=== PATIENT | female | born 1960 | race Caucasian/White ===

== ENCOUNTER → 2017-01-10 | Emergency (ER) | payer MEDICARE, OTHER ==
[~2017-01-10] VITALS: Ht 160 cm; Wt 47.2 kg
[~2017-01-10] MED LIST: ACETAMINOPHEN325 M1 PO; ALBUTEROL2.5 MG/3 M INH; AMBIEN5 MG PO; AMITRIPTYLINE H25 MG PO; BENZONATATE100 MG PO; CEPHALEXIN500 MG PO; CIPRO500 MG PO; CIPROFLOXACIN500 MG PO; COUMADIN2.5 MG PO; COUMADIN5 MG PO; DIPHENHYDRAMINE25 M1 PO; DOCUSATE SODIU100 MG PO; DUONEB 0.5 MG-33 ML IH; FLUTICASONE PRO16 GM NAS; FUROSEMIDE20 MG PO; HYDROCODON-ACE1 EA10 PO; IBUPROFEN100 MG PO; IBUPROFEN400 MG PO; IPRAT-ALBUT 0.5-3 ML INH; JANTOVEN2.5 MG PO; JANTOVEN5 MG PO; KEFLEX500 MG PO; KEPPRA1000 MG PO; KEPPRA250 MG PO; LEVAQUIN500 MG PO; LEVAQUIN750 MG PO; LOPERAMIDE2 M1 PO; LOPERAMIDE2 MG PO; MACRODANTIN100 MG PO; MEGACE ES625 MG/5 M PO; METOPROLOL TART25 MG PO; MILK OF MA2400 MG/10 PO; MILK OF MA400 MG/5 M PO; MUCINEX1200 MG PO; MYSOLINE50 MG PO; NICOTINE PATCH1 EAC1 TD; NITROFURANTOIN100 M1 PO; NITROFURANTOIN50 MG PO; OMEPRAZOLE20 MG PO; OXYCODONE HCL5 M1 PO; PHENYTEK200 MG PO; PHENYTOIN SODI100 MG PO; PREDNISONE10 MG PO; PREDNISONE20 MG PO; PYRIDIUM100 MG PO; ROBAXIN500 MG PO; SENEXON-S TABL1 EACH PO; SEROQUEL XR50 MG PO; SEROQUEL200 MG PO; SERTRALINE HCL100 MG PO; SPIRIVA18 MCG INH; SUDOGEST30 MG PO; TRAMADOL HCL50 MG PO; TYLENOL325 MG PO; ULTRAM50 MG PO; VENTOLIN HFA18 GM INH; WARFARIN SODIU2.5 MG PO; WARFARIN SODIUM5 MG PO
== END ==
LOC: ED 16:11
DX: N39.0 Urinary tract infection, site not specified (principal); J44.9 Chronic obstructive pulmonary disease, unspecified; F32.9 Major depressive disorder, single episode, unspecified; Z86.73 Personal history of transient ischemic attack (TIA), and cerebral infarction without residual deficits; I10 Essential (primary) hypertension; I48.91 Unspecified atrial fibrillation; K21.9 Gastro-esophageal reflux disease without esophagitis; F17.200 Nicotine dependence, unspecified, uncomplicated; Z90.49 Acquired absence of other specified parts of digestive tract; Z88.5 Allergy status to narcotic agent; Z79.899 Other long term (current) drug therapy; Z88.8 Allergy status to other drugs, medicaments and biological substances; Z79.01 Long term (current) use of anticoagulants
CPT/HCPCS: 81001; 87077; 87088; 87186; 99283

== ENCOUNTER 2017-02-17 03:10 | Emergency (ER) | payer MEDICARE, OTHER ==
[~2017-02-17] VITALS: Ht 160 cm; Wt 50.4 kg
== END 2017-02-17 04:50 | disposition home or self-care (01) ==
LOC: ED 03:10
PROC: 0T9B70Z Drainage of Bladder with Drainage Device, Via Natural or Artificial Opening (ICD-10-PCS; principal; 2017-02-17)
PROC: 4A0D7LZ Measurement of Urinary Volume, Via Natural or Artificial Opening (ICD-10-PCS; 2017-02-17)
DX: T83.091A Other mechanical complication of indwelling urethral catheter, initial encounter (principal); J44.9 Chronic obstructive pulmonary disease, unspecified; F32.9 Major depressive disorder, single episode, unspecified; I10 Essential (primary) hypertension; I48.91 Unspecified atrial fibrillation; K21.9 Gastro-esophageal reflux disease without esophagitis; F17.200 Nicotine dependence, unspecified, uncomplicated; Z86.73 Personal history of transient ischemic attack (TIA), and cerebral infarction without residual deficits; Z90.49 Acquired absence of other specified parts of digestive tract; Z88.6 Allergy status to analgesic agent; Z88.5 Allergy status to narcotic agent; Z88.8 Allergy status to other drugs, medicaments and biological substances; Z79.899 Other long term (current) drug therapy; Z79.01 Long term (current) use of anticoagulants
CPT/HCPCS: 51702; 51798; 81001; 87077; 87088; 87186; 99284

== ENCOUNTER 2018-04-08 10:21 | Emergency (ER) | payer MEDICARE, OTHER ==
[~2018-04-08] VITALS: Ht 160 cm; Wt 50.4 kg
--- OUTSIDE RECORDS SUMMARY | 2018-04-08 10:26 | XMS ---
PreManage Notification: ROE DURAN Security Senior Sales Operations Manager Events No recent Security Events currently on file CRITERIA MET - Group Notification - [facility] CARE PROVIDERS JO-ANN BALL [facility] Current PHONE: Unknown Armani Malagon Digital Proofing And Platemaker/Program Director/Air Personality 03/19/2014-Current PHONE: [phone] Armani Malagon Primary Care 03/19/2014-Current PHONE: [phone] Jo-Ann Ball DO Treatment Current PHONE: Unknown [facility] Case or Review Manager 01/28/2016-Current HEALTH AND HOSPICE PHONE: [phone] DR JO-ANN BALL Primary Care 02/07/2016-Current PHONE: [phone] Family [facility] Primary Care Current Associates PHONE: [phone] Other Current PHONE: Unknown Guidelines Source: GLORIA [facility] Guidelines Date: 11/15/2017 Care Coordination: PATIENT IS UNDER SERVICES AT [facility] DEPARTMENT.\T\nbsp; IF PATIENT IS SEEN IN THE ED, PLEASE NOTIFY THEM AT [phone].\T\nbsp; IF AFTER HOURS OR ON WEEKENDS PLEASE CALL SWITCHBOARD AT [phone] AND HAVE ON-CALL RN NOTIFIED. ESusi VISIT COUNT (12 MO.) 1 GLORIA Louis TOTAL 1 NOTE: Visits indicate total known visits. ED/UCC VISIT TRACKING (12 MO.) 04/08/2018 10:22 GLORIA [facility] [place] TYPE: Emergency COMPLAINT: - CATHETER PROBLEM INPATIENT VISIT TRACKING (12 MO.) No inpatient visits to display in this time frame [email or web address]
[2018-04-08] MEDS ORDERED: KEFLEX500 MG PO (12:02)
== END 2018-04-08 12:52 | disposition home or self-care (01) ==
LOC: ED 10:21
PROC: 0T9B70Z Drainage of Bladder with Drainage Device, Via Natural or Artificial Opening (ICD-10-PCS; principal; 2018-04-08)
DX: Z46.6 Encounter for fitting and adjustment of urinary device (principal); N39.0 Urinary tract infection, site not specified; J44.9 Chronic obstructive pulmonary disease, unspecified; G40.909 Epilepsy, unspecified, not intractable, without status epilepticus; F32.9 Major depressive disorder, single episode, unspecified; I10 Essential (primary) hypertension; D64.9 Anemia, unspecified; I48.91 Unspecified atrial fibrillation; G35 Multiple sclerosis; F17.210 Nicotine dependence, cigarettes, uncomplicated; K21.9 Gastro-esophageal reflux disease without esophagitis; Z90.49 Acquired absence of other specified parts of digestive tract; Z88.6 Allergy status to analgesic agent; Z88.5 Allergy status to narcotic agent; Z88.8 Allergy status to other drugs, medicaments and biological substances; Z79.899 Other long term (current) drug therapy; Z79.01 Long term (current) use of anticoagulants
CPT/HCPCS: 51702; 81001; 87077; 87088; 87186; 99283-25

== ENCOUNTER 2018-05-14 17:09 | Emergency (ER) | payer MEDICARE, OTHER ==
[~2018-05-14] VITALS: Ht 160 cm; Wt 50.4 kg
--- OUTSIDE RECORDS SUMMARY | 2018-05-14 17:12 | XMS ---
PreManage Notification: ROE DURAN Security Sorter Pricer Events No recent Security Events currently on file CRITERIA MET - Group Notification - [facility] [place] CARE PROVIDERS JO-ANN BALL [facility] Current PHONE: Unknown Armani Malagon Cloud Automation Tester/Capital Project Engineer 03/19/2014-Current PHONE: [phone] Armani Malagon Primary Care 03/19/2014-Current PHONE: [phone] Jo-Ann Ball DO Treatment Current PHONE: Unknown [facility] Case or Geriatric Social Work Professor 01/28/2016-Current HEALTH AND HOSPICE PHONE: [phone] DR BUSCH [facility] Primary Care 02/07/2016-Current PHONE: [phone] [facility] Primary Care Current Associates PHONE: [phone] Other Current PHONE: Unknown Gonzalo has no Care Guidelines for this patient. Care History Medical/Surgical 04/08/2018 [facility] - PATIENT CURRENT UROLOGIST IS DR RUEDA- NEXT APT WITH DR RUEDA IS ON 2018. - PATIENT WAS DISCHARGED FROM HOME HEALTH SERVICES THROUGH [facility]. - PATIENT DID NOT SEE PCP FOR A F2F FORM AND NO SHOWED TO 2 APTS. ESusi VISIT COUNT (12 MO.) 2 GLORIA Louis TOTAL 2 NOTE: Visits indicate total known visits. ED/UCC VISIT TRACKING (12 MO.) 05/14/2018 17:10 [place] [place] TYPE: Emergency COMPLAINT: - CATHETER PROBLEM 04/08/2018 10:[address] [facility] [place] TYPE: Emergency COMPLAINT: - CATHETER PROBLEM DIAGNOSES: - Urinary tract infection, site not specified - Other oysterman (current) drug therapy - Acquired absence of other specified parts of digestive tract - Anemia, unspecified - Allergy status to narcotic agent status - Epilepsy, unspecified, not intractable, without status epilepticus - Gastro-esophageal reflux disease without esophagitis - Allergy status to other drugs, medicaments and biological substances status - Unspecified atrial fibrillation - Nicotine dependence, cigarettes, uncomplicated - Lower abdominal pain, unspecified - Chronic obstructive pulmonary disease, unspecified - Essential (primary) hypertension - Allergy status to analgesic agent status - Major depressive disorder, single episode, unspecified - longterm (current) use of anticoagulants - Encounter for fitting and adjustment of urinary device - Multiple sclerosis INPATIENT VISIT TRACKING (12 MO.) No inpatient visits to display in this time frame [id number]
== END 2018-05-14 18:10 | disposition home or self-care (01) ==
LOC: ED 17:09
DX: Z46.6 Encounter for fitting and adjustment of urinary device (principal); J44.9 Chronic obstructive pulmonary disease, unspecified; Z86.73 Personal history of transient ischemic attack (TIA), and cerebral infarction without residual deficits; F32.9 Major depressive disorder, single episode, unspecified; D64.9 Anemia, unspecified; I48.91 Unspecified atrial fibrillation; K21.9 Gastro-esophageal reflux disease without esophagitis; F17.200 Nicotine dependence, unspecified, uncomplicated; Z88.8 Allergy status to other drugs, medicaments and biological substances; Z88.5 Allergy status to narcotic agent; Z79.899 Other long term (current) drug therapy
CPT/HCPCS: 51702; 99283-25

== ENCOUNTER 2018-05-21 15:25 | Emergency (ER) | payer MEDICARE, OTHER ==
[~2018-05-21] VITALS: Ht 160 cm; Wt 50.4 kg
--- OUTSIDE RECORDS SUMMARY | 2018-05-21 15:28 | XMS ---
PreManage Notification: ROE DURAN Security Preschool Education Director Events No recent Security Events currently on file CRITERIA MET - Group Notification - [facility] - Has Care Guidelines - [facility] - 2 Visits in 30 Days CARE PROVIDERS JO-ANN BALL [facility] Current PHONE: Unknown Armani Malagon Marketing Planning Manager/Manager Case Management 03/19/2014-Current PHONE: [phone] Armani Malagon Primary Care 03/19/2014-Current PHONE: [phone] Jo-Ann Ball DO Treatment Current PHONE: Unknown [facility] Case or Pipe Connector 01/28/2016-Current HEALTH AND HOSPICE PHONE: [phone] DR BUSCH [facility] Care 02/07/2016-Current PHONE: [phone] [facility] Primary Care Current [facility] PHONE: [phone] Other Current PHONE: Unknown Gonzalo has no Care Guidelines for this patient. Care History Medical/Surgical 04/08/2018 [facility] - PATIENT CURRENT UROLOGIST IS DR RUEDA- NEXT APT WITH DR RUEDA IS ON 2018. - PATIENT WAS DISCHARGED FROM HOME HEALTH SERVICES THROUGH [facility]. - PATIENT DID NOT SEE PCP FOR A F2F FORM AND NO SHOWED TO 2 APTS. E.D. VISIT COUNT (12 MO.) 3 GLORIA Louis TOTAL 3 NOTE: Visits indicate total known visits. ED/UCC VISIT TRACKING (12 MO.) 05/21/2018 15:26 [facility] [place] TYPE: Emergency COMPLAINT: - LOW ABD PAIN 05/14/2018 17:10 [facility] [place] TYPE: Emergency COMPLAINT: - CATHETER PROBLEM DIAGNOSES: - Allergy status to narcotic agent status - Unspecified atrial fibrillation - Major depressive disorder, single episode, unspecified - Nicotine dependence, unspecified, uncomplicated - Anemia, unspecified - Gastro-esophageal reflux disease without esophagitis - Allergy status to other drugs, medicaments and biological substances status - Personal history of transient ischemic attack (TIA), and cerebral infarction without residual deficits - Chronic obstructive pulmonary disease, unspecified - Other long-term (current) drug therapy - Encounter for fitting and adjustment of urinary device 04/08/2018 10:22 [facility] [place] TYPE: Emergency COMPLAINT: - CATHETER PROBLEM DIAGNOSES: - Urinary tract infection, site not specified - Other long-term (current) drug therapy - Acquired absence of [...] Major depressive disorder, single episode, unspecified - middle or intermediate school principal (current) use of anticoagulants - Encounter for fitting and adjustment of urinary device - Multiple sclerosis INPATIENT VISIT TRACKING (12 MO.) No inpatient visits to display in this time frame [id number]
[2018-05-21] MEDS ORDERED: KEFLEX500 MG PO (18:43)
== END 2018-05-21 20:03 | disposition home or self-care (01) ==
LOC: ED 15:25
DX: N39.0 Urinary tract infection, site not specified (principal); J44.9 Chronic obstructive pulmonary disease, unspecified; F32.9 Major depressive disorder, single episode, unspecified; I10 Essential (primary) hypertension; D64.9 Anemia, unspecified; I48.91 Unspecified atrial fibrillation; K21.9 Gastro-esophageal reflux disease without esophagitis; F17.200 Nicotine dependence, unspecified, uncomplicated; Z88.5 Allergy status to narcotic agent; Z88.8 Allergy status to other drugs, medicaments and biological substances; Z79.899 Other long term (current) drug therapy; Z79.01 Long term (current) use of anticoagulants
CPT/HCPCS: 51702; 80053; 81001; 83690; 85025; 99284-25; J0696; J7030

== ENCOUNTER 2018-06-18 06:46 | Emergency (ER) | payer MEDICARE, OTHER ==
[~2018-06-18] VITALS: Ht 160 cm; Wt 50.4 kg
--- OUTSIDE RECORDS SUMMARY | 2018-06-18 06:50 | XMS ---
PreManage Notification: ROE DURAN Security Investor Events No recent Security Events currently on file CRITERIA MET - Group Notification - [facility] - Has Care Guidelines - [facility] - 2 Visits in 30 Days CARE PROVIDERS Armani Malagon Account Relationship Manager/Packer Sausage And Wiener 03/19/2014-Current PHONE: [phone] Armani Malagon Account Relationship Manager/Packer Sausage And Wiener 03/19/2014-Current PHONE: [phone] [facility] Current PHONE: Unknown Armani Malagon Primary Care 03/19/2014-Current PHONE: [phone] Jo-Ann Ball Current PHONE: Unknown [facility] Case or Pole Maker 01/28/2016-Current HEALTH AND HOSPICE PHONE: [phone] DR JO-NAN BALL Primary Care 02/07/2016-Current PHONE: [phone] [facility] Primary [facility] Current Associates PHONE: [phone] Other Current PHONE: Unknown Gonzalo has no Care Guidelines for this patient. Care History Medical/Surgical 04/08/2018 [facility] - PATIENT CURRENT UROLOGIST IS DR RUEDA- NEXT APT WITH DR RUEDA IS ON 2018. - PATIENT WAS DISCHARGED FROM HOME HEALTH SERVICES THROUGH [facility]. - PATIENT DID NOT SEE PCP FOR A F2F FORM AND NO SHOWED TO 2 APTS. E.D. VISIT COUNT (12 MO.) 4 [facility]. TOTAL 4 NOTE: Visits indicate total known visits. ED/UCC VISIT TRACKING (12 MO.) 06/18/2018 06:47 [facility] [place] TYPE: Emergency COMPLAINT: - FALL/LEFT HIP PAIN 05/21/2018 15:26 [facility] [place] TYPE: Emergency COMPLAINT: - LOW ABD PAIN DIAGNOSES: - Anemia, unspecified - Unspecified atrial fibrillation - Chronic obstructive pulmonary disease, unspecified - prison (current) use of anticoagulants - Urinary tract infection, site not specified - Other half-way (current) drug therapy - Allergy status to narcotic agent status - Major depressive disorder, single episode, unspecified - Essential (primary) hypertension - Allergy status to other drugs, medicaments and biological substances status - Gastro-esophageal reflux disease without esophagitis - Nicotine dependence, unspecified, uncomplicated 05/14/2018 17:10 [facility] [place] TYPE: Emergency [...] Chronic obstructive pulmonary disease, unspecified - Other rat exterminator (current) drug therapy - Encounter for fitting and adjustment of urinary device 04/08/2018 10:[address] [facility] [place] TYPE: Emergency COMPLAINT: - CATHETER PROBLEM DIAGNOSES: - Urinary tract infection, site not specified - Other half-way (current) drug therapy - Acquired absence of [...] Major depressive disorder, single episode, unspecified - ferry terminal agent (current) use of anticoagulants - Encounter for fitting and adjustment of urinary device - Multiple sclerosis INPATIENT VISIT TRACKING (12 MO.) No inpatient visits to display in this time frame [id number]
== END 2018-06-18 09:08 | disposition home or self-care (01) ==
LOC: ED 06:46
DX: S32.592A Other specified fracture of left pubis, initial encounter for closed fracture (principal); W19.XXXA Unspecified fall, initial encounter; Z86.73 Personal history of transient ischemic attack (TIA), and cerebral infarction without residual deficits; J44.9 Chronic obstructive pulmonary disease, unspecified; F32.9 Major depressive disorder, single episode, unspecified; I10 Essential (primary) hypertension; D64.9 Anemia, unspecified; F17.200 Nicotine dependence, unspecified, uncomplicated; Z88.5 Allergy status to narcotic agent; Z79.899 Other long term (current) drug therapy; Z79.01 Long term (current) use of anticoagulants
CPT/HCPCS: 73502; 73700; 99284-25

== ENCOUNTER 2019-01-25 17:05 | Emergency (ER) | payer MEDICARE, OTHER ==
[~2019-01-25] VITALS: Ht 160 cm; Wt 50.4 kg
[~2019-01-25 17:05] MED LIST changes: +PRIMIDONE50 MG PO; +WARFARIN SODIUM3 MG PO
--- OUTSIDE RECORDS SUMMARY | 2019-01-25 17:08 | XMS ---
PreManage Notification: ROE DURAN Security Ultrasound Tech Events No recent Security Events currently on file CRITERIA MET - Group Notification [place] [facility] [place] Delio Cortés DO Family Medicine Current PHONE: Unknown Armani Malagon Engagement Quality Consultant/Documentation Coordinator 03/19/2014-Current PHONE: [phone] Armani Malagon Primary Care 03/19/2014-Current PHONE: [phone] Delio Cortés DO Treatment Current PHONE: Unknown [facility] Case or Brothel Keeper 01/28/2016-Current HEALTH AND HOSPICE PHONE: [phone] DR BUSCH [facility] Care 02/07/2016-Current PHONE: [phone] [facility] Primary Care Current Associates PHONE: [phone] Other Current PHONE: Unknown Gonzalo has no Care Guidelines for this patient. Care History Medical/Surgical 04/08/2018 [facility] - PATIENT CURRENT UROLOGIST IS DR RUEDA- NEXT APT WITH DR RUEDA IS ON 2018. - PATIENT WAS [facility]CHAR[facility] - PATIENT DID NOT SEE PCP FOR A F2F FORM AND NO SHOWED TO 2 APTS. EAbiolaDAbiola VISIT COUNT (12 MO.) 5 GLORIA Louis TOTAL 5 NOTE: Visits indicate total known visits. ED/UCC VISIT TRACKING (12 MO.) 01/25/2019 17:06 [facility]RI[facility] [place] TYPE: Emergency COMPLAINT: - POSS SEIZURE 06/18/2018 06:47 [facility] [place] TYPE: Emergency COMPLAINT: - FALL/LEFT HIP PAIN DIAGNOSES: - Other correction (current) drug therapy - Nicotine dependence, unspecified, uncomplicated - Unspecified fall, initial encounter - Chronic obstructive pulmonary disease, unspecified - Essential (primary) hypertension - Prsnl hx of TIA (TIA), and cereb infrc w/o resid deficits - jail (current) use of anticoagulants - Oth fracture of left pubis, init encntr for closed fracture - Major depressive disorder, single episode, unspecified - Anemia, unspecified - Left lower quadrant pain - Allergy status to narcotic agent status 05/21/2018 15:26 [facility] [place] TYPE: Emergency COMPLAINT: - LOW ABD PAIN DIAGNOSES: - Anemia, unspecified - Unspecified atrial fibrillation - Chronic obstructive pulmonary disease, unspecified - jail (current) use of anticoagulants - Urinary tract infection, site not specified - Other lobsterman (current) drug therapy - Allergy status to narcotic agent status - Major depressive disorder, single episode, unspecified - Essential (primary) hypertension - Allergy status to oth drug/meds/biol subst status - Gastro-esophageal reflux disease without esophagitis - Nicotine dependence, unspecified, uncomplicated 05/14/2018 17:10 GLORIA [facility] [place] TYPE: Emergency COMPLAINT: - CATHETER PROBLEM DIAGNOSES: - Allergy status to narcotic agent status - Unspecified atrial fibrillation - Major depressive disorder, single episode, unspecified - Nicotine dependence, unspecified, uncomplicated - Anemia, unspecified - Gastro-esophageal reflux disease without esophagitis - Allergy status to oth drug/meds/biol subst status - Prsnl hx of TIA (TIA), and cereb infrc w/o resid deficits - Chronic obstructive pulmonary disease, unspecified - Other lobsterman (current) drug therapy - Encounter for fitting and adjustment of urinary device 04/08/2018 10:[address] [facility] [place] TYPE: Emergency COMPLAINT: - CATHETER PROBLEM DIAGNOSES: - Urinary tract infection, site not specified - Other correction (current) drug therapy - Acquired absence of other specified parts of digestive tract - Anemia, unspecified - Allergy status to narcotic agent status - Epilepsy, unsp, not intractable, without status epilepticus - Gastro-esophageal reflux disease without esophagitis - Allergy status to oth drug/meds/biol subst status - Unspecified atrial fibrillation - Nicotine dependence, cigarettes, uncomplicated - Lower abdominal pain, unspecified - Chronic obstructive pulmonary disease, unspecified - Essential (primary) hypertension - Allergy status to analgesic agent status - Major depressive disorder, single episode, unspecified - exterminator helper (current) use of anticoagulants - Encounter for fitting and adjustment of urinary device - Multiple sclerosis INPATIENT VISIT TRACKING (12 MO.) No inpatient visits to display in this time frame [id number]
== END 2019-01-25 18:51 | disposition home or self-care (01) ==
LOC: ED 17:05
DX: R56.9 Unspecified convulsions (principal); Z86.73 Personal history of transient ischemic attack (TIA), and cerebral infarction without residual deficits; J44.9 Chronic obstructive pulmonary disease, unspecified; I10 Essential (primary) hypertension; I48.91 Unspecified atrial fibrillation; K21.9 Gastro-esophageal reflux disease without esophagitis; F17.200 Nicotine dependence, unspecified, uncomplicated; Z88.5 Allergy status to narcotic agent; Z88.8 Allergy status to other drugs, medicaments and biological substances; Z79.899 Other long term (current) drug therapy; Z79.01 Long term (current) use of anticoagulants
CPT/HCPCS: 70450; 80185; 82542; 85610; 99284-25

== ENCOUNTER 2019-05-13 19:05 | Inpatient (IN) | payer MEDICARE, OTHER ==
[~2019-05-13] VITALS: Ht 160 cm; Wt 43.1 kg
--- OUTSIDE RECORDS SUMMARY | 2019-05-13 19:08 | XMS ---
PreManage Notification: ROE DURAN Security Production Cost Estimator Events No recent Security Events currently on file CRITERIA MET - Group Notification - [facility] [place]ARE PROVIDERS Delio Cortés DO Family Medicine Current PHONE: [phone] Armani Malagon Station Worker/Bag End Sewer 03/19/2014-Current PHONE: [phone] Armani Malagon Primary Care 03/19/2014-Current PHONE: [phone] Delio Cortés DO Treatment Current PHONE: Unknown [facility] Case or Health Promotion Manager 01/28/2016-Current HEALTH AND HOSPICE PHONE: [phone] DR BUSCH [facility] Care 02/07/2016-Current PHONE: [phone] [facility] Primary Care Current Associates PHONE: [phone] Other Current PHONE: Unknown Gonzalo has no Care Guidelines for this patient. Care History Medical/Surgical 04/08/2018 [facility] - PATIENT CURRENT UROLOGIST IS DR RUEDA- NEXT APT WITH DR RUEDA IS ON 2018. - PATIENT WAS DISCHARGED FROM HOME HEALTH SERVICES THROUGH [facility]. - PATIENT DID NOT SEE PCP FOR A F2F FORM AND NO SHOWED TO 2 APTS. E.DbAiola VISIT COUNT (12 MO.) 5 GLORIA Louis TOTAL 5 NOTE: Visits indicate total known visits. ED/UCC VISIT TRACKING (12 MO.) 05/13/2019 19:05 GLORIA [facility] [place] TYPE: Emergency COMPLAINT: - STROKE SYMPTOMS 01/25/2019 17:06 GLORIA [facility] [place] TYPE: Emergency COMPLAINT: - POSS SEIZURE DIAGNOSES: - Unspecified atrial fibrillation - Gastro-esophageal reflux disease without esophagitis - Allergy status to oth drug/meds/biol subst status - Prsnl hx of TIA (TIA), and cereb infrc w/o resid deficits - Allergy status to narcotic agent status - Chronic obstructive pulmonary disease, unspecified - Other exterminator helper termite (current) drug therapy - intermediate (current) use of anticoagulants - Nicotine dependence, unspecified, uncomplicated - Essential (primary) hypertension - Unspecified convulsions 06/18/2018 06:47 GLORIA [facility] [place] TYPE: Emergency COMPLAINT: - FALL/LEFT HIP PAIN DIAGNOSES: - Other mcc (current) drug therapy - Nicotine dependence, unspecified, uncomplicated - Unspecified fall, initial encounter - Chronic obstructive pulmonary disease, unspecified - Essential (primary) hypertension - Prsnl hx of TIA (TIA), and cereb infrc w/o resid deficits - terminal superintendent (current) use of anticoagulants - Oth fracture [...] - Chronic obstructive pulmonary disease, unspecified - terminal superintendent (current) use of anticoagulants - Urinary tract infection, site not specified - Other exterminator helper termite (current) drug therapy - Allergy status to [...] Chronic obstructive pulmonary disease, unspecified - Other exterminator helper termite (current) drug therapy - Encounter for fitting and adjustment of urinary device INPATIENT VISIT TRACKING (12 MO.) No inpatient visits to display in this time frame [id number]
[2019-05-13] MEDS ORDERED: ASCORBIC ACID500 MG PO (21:27)
[2019-05-13] MEDS ORDERED: FERROUS SULFAT325 MG PO (21:30)
[2019-05-13] MEDS ORDERED: VITAMIN D2400 UNIT PO (21:31)
--- NOTE | 2019-05-13 22:45 | NUR ---
BEDSIDE REPORT RECIEVED FROM ED RN. PT TRANSPORTED VIA STETCHER ON OUTBOUND SALES CONSULTANT WITH IV ABX INFUSING BY THIS RN. PT TRANSFERED TO HOSPITAL BED. INITIAL SKIN ASSESSMENT REVEALED BLISTERS AND REDNESS ON COCCYX. PHOTOS IN CHART. PT CONTINUES TO BE HYPOTENSIVE WITH BLOOD PRESSURES SYSTOLICALLY IN THE 80'S. PT ALERT AND ORIENTED. IV FLUIDS INFUSING AND PO MEDICATIONS GIVEN.
--- NOTE | 2019-05-13 23:00 | NUR ---
DRESSING PLACED ON COCCYX. PT FOUND TO HAVE DRIED FECES IN EBONI AREA AND AROUND URINARY CATHETER INSERTION SITE. PT CONTINUES TO BE HYPOTENSIVE. MD NOTIFIED. ORDERS TO CHANGE CATHETER RECIEVED.
--- NOTE | 2019-05-13 23:57 | NUR ---
MANUAL BLOOD PRESSURE OF 76/38. MD NOTIFIED. 500 ML BOLUS ORDERED (SEE EMAR). WILL CONTINUE TO CLOSELY MONITOR.
--- NOTE | 2019-05-14 00:26 | NUR ---
EXISITING RAMON CATHETER DC AND NEW ONE INSTERTED. WELL TOLERATED BY PT. 40 MLS OF URINE IMMEDIATE RETURN. PT HAS IV FLUID BOLUS AND CONTINUOUS IV FLUIDS INFUSING. CALL LIGHT WITHIN REACH. WILL CONTINUE TO CLOSELY MONITOR BLOOD PRESSURES
--- NOTE | 2019-05-14 02:00 | NUR ---
PT RESTING WITH EYES CLOSED. BREATHING EVEN AND UNLABORED. IV FLUIDS INFUSING. CALL LIGHT WITHIN REACH. CLOSELY MONITORING BLOOD PRESSURES AND URINE OUTPUT.
--- NOTE | 2019-05-14 03:45 | NUR ---
IN ROOM FOR ASSESSMENT. PT STATES, "I FEEL MUCH BETTER." URINE OUT OF RAMON IS LIGHT YELLOW, WITH NO SEDIMENT OR ODOR NOTED. MAP HAS CONSISTENTLY BEEN 90-95 OVER THE LAST TWO HOURS. PTS LUNGS SOUND CLEAR. ASSISTED WITH REPOSITIONING IN BED. IV FLUIDS INFUSING. NO STATED OR ASSESSED NEEDS AT THIS TIME.
--- NOTE | 2019-05-14 04:30 | NUR ---
PT AWAKE IN ROOM, WATCHING TELEVISION. CALL LIGHT WITHIN REACH. DENIES ANY NEEDS AT THIS TIME.
--- NOTE | 2019-05-14 05:44 | NUR ---
LAB IN ROOM TO DRAW BLOOD. PT AWAKE WATCHING TELEVISION. DENIES PAIN OR DISCOMFORT. ASSISTED WITH REPOSITIONING. CALL LIGHT WITHIN REACH. NO FURTHER NEEDS AT THIS TIME.
--- NOTE | 2019-05-14 06:56 | NUR ---
LAB CALLED IN CRITICAL VALUE INR OF 9.[address] POWERS CALLED. ORDERS RECIEVED (SEE EMAR).
--- NOTE | 2019-05-14 08:20 | NUR ---
ASSESSMENT COMPLETE. DENIES PAIN. RAMON CATH PATENT WITH YELLOW URINE AND SEDIMENT NOTED. REFUSING BREAKFAST. TALKED WITH PATIENT ABOUT PLAN OF CARE FOR DAY. PATIENT INDICATES UNDERSTANDING. WILL CONTINUE TO MONITOR BP IS HYPOTENSIVE.
--- NOTE | 2019-05-14 09:39 | NUR ---
ROUTINE MEDICATIONS GIVEN. VISITING WITH SISTER. PATIENT DENEIS PROBLEMS.
--- NOTE | 2019-05-14 10:40 | NUR ---
Spoke with Jeni. She is well to this Rn for 10 years. States she had a seizure and still feels out of it. Lives at [facility]. Denies needs to return and has all DME she needs. Dad, Cornell is her Emergency contact. Plans on returning to [facility] on dc.
--- NOTE | 2019-05-14 11:20 | NUR ---
INC OF STOOL. OOB TO COMMODE TO EXPELL MORE STOOL, THEN TRANSFERED TO CHAIR WITH ASSIST. DENIES INCREASED SHORTNESS OF BREATH OR DIZZINESS WITH MOVEMENT. IN GOOD SPIRITS. HAS OCC LOOSE COUGH.
--- NOTE | 2019-05-14 12:30 | NUR ---
ATTEMPTING TO TAKE PEANUT BUTTER SHAKE. PATIENT STATES IT DOES NOT TASTE GOOD. REFUSING FUTHER LUNCH. REMAINS IN CHAIR. IV SITE TO RIGHT INNER WRIST REDRESSED.
--- NOTE | 2019-05-14 14:00 | NUR ---
U.S. OF ABD, DONE AT BEDSIDE.
--- NOTE | 2019-05-14 14:15 | NUR ---
INC OF SMALL AMOUNT OF LOOSE STOOL.
--- NOTE | 2019-05-14 14:20 | NUR ---
PHYS THERAPY HERE TO WORK WITH PATIENT.
--- NOTE | 2019-05-14 14:44 | NUR ---
PT SITTING IN CHAIR, VISITORS IN. PT ALERT, RESPONDED APPROPRIATELY. PT SEEMS TO HAVE GOOD SENSE OF HUMOR, GAVE BLESSING ANE WILL LET PT FINISH VISIT WITH FAMILY. DID NOTE LARGE BRUISE ON PTS' LEFT FOREARM. WILL FOLLOW NEEDED
--- NOTE | 2019-05-14 15:30 | NUR ---
REPORT TO MED-SURG.
--- NOTE | 2019-05-14 15:40 | NUR ---
TO MED-SURG VIA BED.
--- NOTE | 2019-05-14 15:45 | NUR ---
Patient arrives to unit via hospital bed. Vital signs taken, assessment complete. Tele #[address], sinus rhythm. Lung sounds diminished in bases. D5LR running at 50 mls/hr. Patient denies pain. IV site on left wrist cleaned and new window dressing applied. Warm blanket provided. No further needs, call light within reach.
[2019-05-14] MEDS ORDERED: ALBUTEROL2.5 MG/3 M INH (16:57)
[2019-05-14] MEDS ORDERED: SENNA-S TABLET1 EACH PO (16:59)
--- NOTE | 2019-05-14 17:30 | NUR ---
Patient sitting up in bed watching tv. Reports poor appetite, would like bbq chips instead for dinner, which is accommodated. Denies pain. IV site on left wrist with new dressing is C/D/I with scant bleeding. Denies needs, call light within reach.
--- NOTE | 2019-05-14 18:14 | NUR ---
Lab in room for blood draw
--- NOTE | 2019-05-14 19:05 | NUR ---
IN ROOM FOR REPORT, PT IS ON THE PHONE AND DENIES NEEDS AT THIS TIME. CALL LIGHT IS CLOSE.
--- NOTE | 2019-05-14 19:55 | NUR ---
JUNE PROFESSIONAL HEALTHCARE REPRESENTATIVE NOTIFIED THIS RN THAT PT'S IV WAS LEAKING. PT REPORTS SORENESS IN THE AREA. IV SITE WOULD NOT FLUSH OR DRAW BACK. DC'D IV IN PT'S R WRIST, CATH TIP INTACT AND PT TOLERATED WELL. APPLIED PRESSURE WITH GAUZE AND WRAPPED IN COBAN. PT DENIES PAIN AT THIS TIME AND SOB. CALL LIGHT IS CLOSE AND PT DENIES FURTHER NEEDS.
--- NOTE | 2019-05-14 20:52 | NUR ---
IN ROOM TO ADMINISTER MEDICATIONS AND ASSESS PT. SHE DENIES PAIN AND SOB. SEE ASSESSMENT. CALL LIGHT IS CLOSE AND PT DENIES FURTHER NEEDS.
--- NOTE | 2019-05-15 | NUR ---
PT IS RESTING WITH EYES CLOSED, RR IS EVEN AND NONLABORED. IV IS INFUSING FINE. CALL LIGHT IS CLOSE AND BED ALARM IS ON.
--- NOTE | 2019-05-15 00:56 | NUR ---
NEW IV BAG NOW INFUSING. FRESH ICEWATER PROVIDED AND PT DENIES FURTHER NEEDS. CALL LIGHT IS CLOSE.
--- NOTE | 2019-05-15 02:20 | NUR ---
PT REPORTS A HEADACHE 9/10 VS TAKEN AND WNL. PT REPORTS TAKING MOTRIN FOR HEADACHES. TALKED ABOUT HER INR AND BLEEDING POTENTIAL AND HOW NSAIDS SHOULD BE AVOIDED RIGHT NOW. OFFERED COOL WASH CLOTH, CAFFINE, AND TO REMOVE NICOTINE PATCH AND SHE DENIED. ADVISED PT THIS RN WOULD LOOK OVER HER CHART AND SEE WHATOTHER OPTIONS WE COULD COME UP WITH. SHE DENIES FURTHER NEEDS. CALL LIGHT IS CLOSE.
--- NOTE | 2019-05-15 02:40 | NUR ---
PT NOW REPORTS THAT HER HEADACHE IS GONE AND WAS FIXED BY CHANGING THE POSITION OF HER HEAD AND ADJUSTING HER PILLOW. SHE DENIES NEEDS AT THIS TIME. CALL LIGHT IS WITHIN REACH.
--- NOTE | 2019-05-15 04:16 | NUR ---
PT IS AWAKE IN BED, SHE DENIES NEEDS AT THIS TIME. CALL LIGHT IS CLOSE AND IV IS INFUSING FINE.
--- NOTE | 2019-05-15 05:37 | NUR ---
IN ROOM TO TAKE VS AND ENTER I&O'S. FRESH WATER PROVIDED AND PT DENIES FURTHER NEEDS AT THIS TIME. CALL LIGHT IS CLOSE.
--- NOTE | 2019-05-15 07:56 | NUR ---
REPORT RECEIVED FROM LEXI JAY. WHITE BOARD UPDATED. ALL QUESTIONS ANSWERED. NO NEEDS AT THIS TIME. PATIENT AWAKE LYING IN BED. D5LR @50 INFUSING INTO LEFT HAND IV. REPORTS SHE NEVER EATS BREAKFAST SO SHE DENIED WANTING TO ORDER ANYTHING.
--- NOTE | 2019-05-15 09:05 | NUR ---
Spoke with Jeni. She plans on returning to [facility] as soon as she can. Denies needs.
--- NOTE | 2019-05-15 11:34 | NUR ---
CHECKED ON PT-SHE WAS RESTING AND ASKED IT I COULD COME BACK LATER.WILL FOLLOW NEEDED
--- NOTE | 2019-05-15 14:01 | NUR ---
DISCUSSED WITH PT REGARDING HER DX. WE TALKED ABOUT SEPSIS AND ALL. PT STATED UNDERSTANDING. WE ALSO DISCUSSED RAMON CATH CARE PT HAS FREQUENT UTI WHICH CAN LEAD TO SEPSIS. SHE EXPLAINED TO ME THAT SHE CLEANS HER CATH EVERY TIME SHE EMPTIES HER LEG BAG(STATES SHE NEVER WEARS THE BIG BAG) SHE EMPTIES THE LEG BAG SEVERAL TIMES A DAY. SHE WAS ABLE TO REPEAT BACK TO ME WHAT SHE DID TO CLEAN AND MAINTAIN HER CATH. SHE STATES THAT HER CATH IS CHANGED EVERY [address]. DENIES OTHER QUESTIONS, CONCERNS, OR ISSUES AT THIS TIME.
--- NOTE | 2019-05-15 14:06 | NUR ---
ambulating in hallway with physical therapy now. tolerating well. using gait belt and fww with wheelchair follow.
--- NOTE | 2019-05-15 17:09 | NUR ---
1630: 2 failed attempts of IV peripheral lines by student nurse/instructor in the right arm and right wrist.
--- NOTE | 2019-05-15 18:33 | NUR ---
WAS CALLED TO MED SURG TO ATTEMPT IV ACCESS. IV ACCESS HAS BEEN ATTEMPTED MULTIPLE TIMES BY MULTIPLE STAFF MEMBERS WITHOUT SUCCESS. ATTEMPTED 4 TIMES, TWICE WITH ULTRASOUND. THE IV'S RETURNED BLOOD BUT WOULD NOT THREAD INTO THE VEIN. PRESSURE WAS APPLIED TO PT'S PUNCTURE SITES. PT TOLERATED WELL. NOTIFIED. DR. POWERS SAID OKAY TO LEAVE IV OUT FOR NOW. PT'S PRIMARY RN, USAMA NOTIFIED.
--- NOTE | 2019-05-15 18:50 | NUR ---
UNABLE TO OBTAIN IV. MD SAID OK TO LEAVE OUT. BP ON RIGHT ARM FINALLY 90SBP. MD MADE AWARE. NO NEW ORDERS. MILKSHAKE ORDERED FOR DINNER.
--- NOTE | 2019-05-15 19:17 | NUR ---
RECEIVED REPORT FROM MISTY FORRESTER. pt RESTING IN BED. NO REQUESTS AT THIS TIME. CALL LIGHT WITHIN REACH. WHITEBOARD UPDATED.
--- NOTE | 2019-05-15 19:21 | NUR ---
Student RN, recieved report from RN at change of shift. Patient has decreased appetite, and refuses meals. Encouraged her to try an Ensure/Shakes. Patient requested a Peanut Butter Milkshake. She liked it and has had a Peanut Butter Shake for breakfast, lunch, and dinner. Patient has been tired, states she did not sleep well last night. Physical Therapy came and took her for a walk. Tollerated well with walker. She got a shower and a bed change in the afternoon and tollerated the activity well. During an assessment, patient complained of her IV being painful, DC'd IV due to infiltration. Several attempts by RN's to insert an IV, and all were failed attempts including use of an ultrasound machine. is aware that she has no IV access. Patient has a good mood and affect and is cooperative for all interventions.
--- NOTE | 2019-05-15 20:30 | NUR ---
ASSESSMENT DONE. VITALS AND I&O RECORDED. pt HAD LOW BP, VERIFIED MANUALLY, DENIED S/S OF HYPOTENSION. WILL RECHECK WITH NEXT COMB SETTER.
--- NOTE | 2019-05-15 23:12 | NUR ---
MEDICATION DUE. GIVEN (SEE MAR). MANUALLY RECHECKED BP, IMPROVED. PROVIDED ICE WATER. NO FURTHER REQUESTS AT THIS TIME. CALL LIGHT WITHIN REACH.
--- NOTE | 2019-05-16 02:33 | NUR ---
pt SLEEPING, WOKE TO VOICE. ASSESSMENT DONE. MEDICATION GIVEN (SEE MAR). WATER PROVIDED. NO FURTHER REQUESTS AT THIS TIME. CALL LIGHT WITHIN REACH.
--- NOTE | 2019-05-16 06:30 | NUR ---
pt REPORTED A HEADACHE, IN TO DO VITALS AND RECORD I&O. pt REPORTED THAT HEADACHE HAD IMPROVED NO MEDS GIVEN AT THIS TIME. NO REQUESTS. CALL LIGHT WITHIN REACH.
--- NOTE | 2019-05-16 07:36 | NUR ---
PT SLEEPING AT THIS TIME, EYES CLOSED, RESP EVEN AND NON LABORED. PERSONAL SUPPLIES AND CALL LIGHT WITHIN REACH. NO NEEDS AT THIS TIME.
--- NOTE | 2019-05-16 09:45 | NUR ---
Spoke with Jeni. She is wanting to go home today. Sister, Kristine is in the room and states she will drive her home when she gets off work at 1430. Called [facility] and notified pt will return today.
[2019-05-16] MEDS ORDERED: NICOTINE PATCH1 EAC1 TD (10:08)
[2019-05-16] MEDS ORDERED: CIPROFLOXACIN500 MG PO (10:08)
--- NOTE | 2019-05-16 10:19 | NUR ---
IBUPROFEN 400MG PO ADMIN FOR REPORTS OF HEADACHE.
--- NOTE | 2019-05-16 11:53 | NUR ---
PT RESTING IN BED, COVERS PULLED UP TO HER EYES. PT STATED THAT SHE HAD A HEADACHE AND WAS HOPING TO BE DC'D TODAY AND AT HOME SHE WOULD FEEL BETTER. GAVE BLESSING, WILL FOLLOW NEEDED
--- NOTE | 2019-05-16 12:42 | NUR ---
[facility] Student Nurse, recieved report from RN at change of shift. Patient has been sleeping most of the day, she states that she is very tired. Showering/ADL's were offered, but patient refused because she is getting discharged today. During assessment, patient complained of a headache and stated she takes ibuprophen at home, so approved this request. Patient states the ibuprohen was effective. She continues to have a poor appetite, she will only drink a peanut butter milkshake. Patient is eager to be discharged later this afternoon
--- NOTE | 2019-05-16 12:49 | NUR ---
1245: Student nurse checked on patient. She is sleeping in her room. Bed is lowered, rails are up, and call light is within reach. She was given fresh ice water and warm blankets.
== END 2019-05-16 14:40 | disposition home or self-care (01) | DRG 698 ==
LOC: ED 19:05 → CCU 22:19 → MS 05-14 16:11
PROVIDERS: ADMIT Internal Medicine
DX: T83.511A Infection and inflammatory reaction due to indwelling urethral catheter, initial encounter (principal); A41.51 Sepsis due to Escherichia coli [E. coli]; N30.00 Acute cystitis without hematuria; Z16.12 Extended spectrum beta lactamase (ESBL) resistance; G40.909 Epilepsy, unspecified, not intractable, without status epilepticus; J44.9 Chronic obstructive pulmonary disease, unspecified; N31.9 Neuromuscular dysfunction of bladder, unspecified; E87.6 Hypokalemia; E83.42 Hypomagnesemia; I48.0 Paroxysmal atrial fibrillation; F32.9 Major depressive disorder, single episode, unspecified; R29.90 Unspecified symptoms and signs involving the nervous system; Z86.73 Personal history of transient ischemic attack (TIA), and cerebral infarction without residual deficits; Z79.899 Other long term (current) drug therapy; Z79.01 Long term (current) use of anticoagulants; Z88.6 Allergy status to analgesic agent; Z88.5 Allergy status to narcotic agent; Z88.8 Allergy status to other drugs, medicaments and biological substances
CPT/HCPCS: 36415; 70450; 71045; 80048; 80053; 80185; 81001; 82542; 83605; 83735; 84132; 85025; 85610; 85651; 87040; 87077; 87088; 87186; 94640; 94760; 96361; 96374; 97116; 97162; 97166; 97530; 97535; 99285-25; 99406; J0696; J3475; J3480; J7030; J7040; J7060; J7120; J7121

== ENCOUNTER 2019-08-26 04:25 | Emergency (ER) | payer MEDICARE, OTHER ==
[~2019-08-26] VITALS: Ht 160 cm; Wt 43.1 kg
[~2019-08-26 04:25] MED LIST changes: +ASCORBIC ACID500 MG PO; +FERROUS SULFAT325 MG PO; +SENNA-S TABLET1 EACH PO; +VITAMIN D2400 UNIT PO
--- OUTSIDE RECORDS SUMMARY | 2019-08-26 04:28 | XMS ---
PreManage Notification: ROE DURAN Security Service Liaison Representative Events No recent Security Events currently on file CRITERIA MET - Group Notification - [facility] - Has Care Guidelines - History of Sepsis Dx CARE PROVIDERS Delio Cortés DO [facility] Current PHONE: [phone] YANELI COFFEY Nurse Practitioner: Family 05/14/2019-Current PHONE: [phone] Armani Malagon Conveyor Technician/Head Of Marketing [employer] 05/18/2019-Current PHONE: [phone] Gonzalo has no Care Guidelines for this patient. Care History Medical/Surgical 05/14/2019 [facility] - Patient is currently established with [facility]. If patient is seen in the ED during business hours. Please contact CHWs at [facility]. - Care Recommendation: If this patient has had 5 or more Emergency Department visits in the last 12 months.\T\nbsp; Patient will require education on the scope and purpose of the ED as an acute care provider not a Primary Care Provider and should not be utilized for chronic conditions.\T\nbsp; These are guidelines and the provider should exercise clinical judgment when providing care. 04/08/2018 [facility] - PATIENT CURRENT UROLOGIST IS DR RUEDA- NEXT APT WITH DR RUEDA IS ON 2018. - PATIENT WAS DISCHARGED FROM HOME HEALTH SERVICES THROUGH [facility]. - PATIENT DID NOT SEE PCP FOR A F2F FORM AND NO SHOWED TO 2 APTS. E.D. VISIT COUNT (12 MO.) 3 [facility] TOTAL 3 NOTE: Visits indicate total known visits. ED/UCC VISIT TRACKING (12 MO.) 08/26/2019 04:26 [facility] TYPE: Emergency COMPLAINT: - POSS RECTAL PROLAPSE 05/13/2019 19:05 [facility] TYPE: Emergency COMPLAINT: - STROKE SYMPTOMS 01/25/2019 17:06 [facility] TYPE: Emergency COMPLAINT: - POSS SEIZURE DIAGNOSES: - Unspecified atrial fibrillation - Gastro-esophageal reflux disease without esophagitis - Allergy status to other drugs, medicaments and biological sub - Personal history of transient ischemic attack (TIA), and cere - Allergy status to narcotic agent status - Chronic obstructive pulmonary disease, unspecified - Other chcf (current) drug therapy - group home (current) use of anticoagulants - Nicotine dependence, unspecified, uncomplicated - Essential (primary) hypertension - Unspecified convulsions INPATIENT VISIT TRACKING (12 MO.) 05/13/2019 22:[address] [facility] TYPE: Medical Surgical COMPLAINT: - SEPSIS DIAGNOSES: - Major depressive disorder, single episode, unspecified - Hypokalemia - Hypomagnesemia - Extended spectrum beta lactamase (ESBL) resistance - Allergy status to analgesic agent status - Neuromuscular dysfunction of bladder, unspecified - group home (current) use of anticoagulants - Allergy status to narcotic agent status - Chronic obstructive pulmonary disease, unspecified - Paroxysmal atrial fibrillation - Epilepsy, unspecified, not intractable, without status epilep - Acute cystitis without hematuria - Allergy status to other drugs, medicaments and biological sub - Sepsis due to Escherichia coli [E. coli] - Personal history of transient ischemic attack (TIA), and cere - Unspecified symptoms and signs involving the nervous system - Infection and inflammatory reaction due to indwelling urethra - Unspecified convulsions - Other chcf (current) drug therapy [email or web address]
== END 2019-08-26 05:06 | disposition home or self-care (01) ==
LOC: ED 04:25
DX: R10.9 Unspecified abdominal pain (principal); J44.9 Chronic obstructive pulmonary disease, unspecified; I10 Essential (primary) hypertension; D64.9 Anemia, unspecified; F32.9 Major depressive disorder, single episode, unspecified; K21.9 Gastro-esophageal reflux disease without esophagitis; F17.200 Nicotine dependence, unspecified, uncomplicated; Z79.899 Other long term (current) drug therapy
CPT/HCPCS: 99283

== ENCOUNTER 2021-03-18 02:58 | Inpatient (IN) | payer MEDICARE, OTHER ==
[~2021-03-18] VITALS: Ht 160 cm; Wt 48.0 kg
[~2021-03-18 02:58] MED LIST changes: +VITAMIN D210 MCG PO; -VITAMIN D2400 UNIT PO
--- OUTSIDE RECORDS SUMMARY | 2021-03-18 03:02 | XMS ---
PreManage Notification: ROE DURAN Security Supervisor Case Loading Events No recent Security Events currently on file CRITERIA MET - Group Notification CARE PROVIDERS Delio Cortés DO [facility] Current PHONE: Unknown YANELI COFFEY Nurse Practitioner: Family 05/14/2019-Current PHONE: Unknown Daniel Barrientos Lead Rider/Janitor Supervisor 02/16/2021-Current PHONE: [phone] Gonzalo has no Care Guidelines for this patient. Care History Medical/Surgical 08/26/2019 [facility] Patient has follow up appointment with Dr. Rueda on 09/02/2019. 05/14/2019 [facility] - Patient is currently established with [facility]. If patient is seen in the ED during business hours. Please contact CHWs at [facility]. - Care Recommendation: If this patient has had 5 or more Emergency Department visits in the last 12 months.\T\nbsp; Patient will require education on the scope and purpose of the ED as an acute care provider not a Primary Care Provider and should not be utilized for chronic conditions.\T\nbsp; These are guidelines and the provider should exercise clinical judgment when providing care. 04/08/2018 [facility] - PATIENT CURRENT UROLOGIST IS DR RUEDA- NEXT APT WITH DR RUEDA IS ON 2018. - PATIENT WAS DISCHARGED FROM HOME HEALTH SERVICES THROUGH [facility]. - PATIENT DID NOT SEE PCP FOR A F2F FORM AND NO SHOWED TO 2 APTS. E.D. VISIT COUNT (12 MO.) 1 [facility]. TOTAL 1 NOTE: Visits indicate total known visits. ED/UCC VISIT TRACKING (12 MO.) 03/18/2021 02:59 [facility] TYPE: Emergency COMPLAINT: - SKIN PROBLEM INPATIENT VISIT TRACKING (12 MO.) No inpatient visits to display in this time frame [email or web address]
[2021-03-18] MEDS ORDERED: ELIQUIS5 MG PO (03:29)
[2021-03-18] MEDS ORDERED: LEVETIRACETAM1000 MG PO (03:30)
--- NOTE | 2021-03-18 07:55 | NUR ---
PT ARRIVES FROM ED, ADMITTED TO CCU ROOM 130 FOR RSV, HYPOXIA. PT IS ALERT AND AWAKE, ON 2L/O2. TRANSFERRED TO BED WITH DRAW SHEET. PT HAS DRESSING ON SACRAL AREA, ALLEVYN, CLEAN DRY AND INTACT. ASSESSMENT DONE, LUNGS HAVE SOME COARSE SOUNDS THROUGHOUT, RESP EVEN AND UNLABORED. CALL LIGHT IN HAND.
--- NOTE | 2021-03-18 09:00 | NUR ---
CALL RECVD FROM MARYBETH AT [facility]. PATIENT UPDATE GIVEN. COPY OF PATIENT H&p, ER NOTES, LABS AND IMAGING SENT TO RN AT [facility].
--- NOTE | 2021-03-18 09:38 | NUR ---
IN TO GIVE AM MEDS AND MILKSHAKE
--- NOTE | 2021-03-18 10:15 | NUR ---
PT REPOSITIONED ONTO RIGHT SIDE, PAINFUL WITH MOVEMENT, WILL DISCUSS PAIN MEDICINE WITH DR COLINDRES.
--- NOTE | 2021-03-18 11:26 | NUR ---
GAVE PT ULTRAM 50 MG. ALSO ENCOURAGED HER TO DRINK ENSURE OR ORDER SOMETHING FOR LUNCH BUT SHE CONTINUES TO REFUSE, EDUCATION DONE REGARDING IMPORTANCE OF NUTRITION FOR WOUND HEALING. SHE STATES, "NO, IT WILL ALL JUST COME BACK UP". DRINKING WATER WELL.
--- NOTE | 2021-03-18 12:42 | NUR ---
PT REPORTS PAIN DOWN TO 7/10 AFTER ULTRAM, IS SITTING UP IN BED WATCHING TV AND DOES LOOK MORE COMFORTABLE AND ENGAGING AND AWAKE. ENCOURAGED HER AGAIN TO TRY TO EAT SOMETHING FOR LUNCH, STATES "I ONLY EAT DINNER, AROUND EIGHT O CLOCK, JUST A PEANUT BUTTER MILK SHAKE AND THATS ALL I WANT". HAD HER TAKE SOME SIPS OF ENSURE JUICE AND SHE LOOKED DISGUSTED, STATED "THAT TASTES LIKE PUKE" AND REFUSED TO DRINK MORE. PLAN TO TRY TO DRINK ENTIRE CUP IN THE NEXT FEW HOURS DISCUSSED WITH HER, SHE IS AGREEABLE ALTHOUGH DOES NOT SEEM HAPPY ABOUT IT. INCENTIVE SPIROMETRY ALSO GIVEN TO PT WITH EDUCATION AND SHE IS WILLING AND MORE POSITIVE ABOUT DOING THIS. PLAN TO COME BACK IN AN HOUR FOR MORE SIPS OF ENSURE AND REPOSITIONING DISCUSSED WITH PT, SHE IS SITTING UP WATCHING TV FOR NOW, ASSESSMENT UNCHANGED FROM PREVIOUS.
--- NOTE | 2021-03-18 12:56 | NUR ---
MED REC COMPLETED BY PHARMACY
--- NOTE | 2021-03-18 14:31 | NUR ---
TOOK REPORT FROM JESSICA JAY. PT IN ROOM WATCHING TV. DENIES NEEDS AT THIS TIME.
--- NOTE | 2021-03-18 14:51 | NUR ---
PT RN CHARTED PT HAND-OFF UNDER JESSICA RN IN ERROR. THIS RN TOOK OVER CARE AT 1430.
--- NOTE | 2021-03-18 15:20 | NUR ---
PT ENCOURAGED TO CONTINUE TO DRINK FLUIDS AND IS REFUSING MEALS AT THIS TIME. PROTEIN SHAKE ORDERED.
--- NOTE | 2021-03-18 15:41 | NUR ---
PT ATTEMPTING TO AMBULATE AND IS UNSTEADY ON FEET. PT BED ALARM ACTIVATED.
--- NOTE | 2021-03-18 20:00 | NUR ---
SHIFT REPORT RECEIVED FROM MISTY QUEZADA. ASSESSMENT COMPLETED. PT IS ALERT, ANSWERS ORIENTATION QUESTIONS APPROPRIATELY BUT IS FORGETFUL OF SITUATION & SURROUNDINGS, CONTINUES TO ASK TO GO BACK TO HER ROOM OR GO OUT FOR A CIGARETTE. RE-ORIENTATION PROVIDED. REPORTS 10/ PAIN TO COCCYX-PT HAS WOUND CURRENTLY COVERED IN ALLEVYN THAT IS C/D/I. PRN ULTRAM GIVEN AND PT ASSISTED TO REPOSITION TO RIGHT SIDE. LUNGS COARSE AND DIM, OXYGEN TITRATED TO 4L AND HUMIDIFICATION ADDED. HR REGULAR. BOWEL TONES ACTIVE, DENIES NAUSEA. NO EDEMA NOTED. IV INTACT AND PATENT, FLUIDS INFUSING WNL. RAMON PATENT, CATH CARE PROVIDED. BED ALARM ON FOR SAFETY. PT ABLE TO TAKE EVENING MEDICATIONS WITHOUT ISSUE. CALL LIGHT WITHIN REACH.
--- NOTE | 2021-03-18 22:00 | NUR ---
OFFERED TO ASSIST PT TO REPOSITION, PT STATES SHE WAS ABLE TO REPOSITION HERSELF AND FEELS COMFORTABLE AT THIS TIME. DR. COLINDRES IN UNIT TO CHECK IN, AWARE OF SOFT BP'S.
--- NOTE | 2021-03-19 00:51 | NUR ---
ASSESSMENT COMPLETED. PT SLEEPING, BUT WOKE EASILY TO TOUCH. ORAL TEMP 100.6, DR. COLINDRES NOTIFIED, ORDER RECEIVED FOR PRN TORADOL-GIVEN. OXYGEN TITRATED TO 2L NC, LUNGS REMAIN SOMEWHAT COARSE AND DIM. NO OTHER CHANGES FROM PREVIOUS ASSESSMENT, PT ASSISTED TO REPOSITION FROM SUPINE ONTO RIGHT SIDE. BED ALARM REMAINS ON FOR SAFETY.
--- NOTE | 2021-03-19 02:35 | NUR ---
DR. COLINDRES NOTIFIED OF PT'S BP: 67/46(53), URINE OUTPUT ~0.5ML/KG/HR. ORDER RECEIVED FOR 500ML NS BOLUS. WHILE IN ROOM TO START BOLUS, PT REPORTS 10/10 COCCYX PAIN, PRN ULTRAM GIVEN. PT HAD REPOSITIONED HERSELF TO SUPINE, OFFERED TO REPOSITION PT TO LEFT SIDE, BUT PT AGAIN WANTS TO BE ON RIGHT. PILLOW SUPPORT PROVIDED. PT DENIES FURTHER NEEDS AT THIS TIME. CALL LIGHT WITHIN REACH AND BED ALARM ON.
--- NOTE | 2021-03-19 04:11 | NUR ---
PT SLEEPING SOUNDLY, NO APPARENT DISTRESS. BP IMPROVING SLIGHTLY SINCE BOLUS COMPLETED. 2L O2 REMAINS IN PLACE, LUNGS CONTINUE TO SOUND SLIGHTLY COARSE. RAMON REMAINS PATENT. IVF INFUSING WNL. BED ALARM ON. WILL ALLOW FOR REST AND CONTINUE TO MONITOR.
--- NOTE | 2021-03-19 06:25 | NUR ---
PT CONTINUES TO SLEEP SOUNDLY, NO APPARENT DISTRESS. RESPIRATIONS EVEN AND UNLABORED, 2L O2 IN PLACE. BED ALARM ON.
--- NOTE | 2021-03-19 07:45 | NUR ---
PT IN BED WITH EYES CLOSED, RR 24, SPO2 94%, HR 60'S. REPORT RECEIVED FROM DALIA JAY.
--- NOTE | 2021-03-19 08:19 | NUR ---
RT IN TO WORK WITH PT.
--- NOTE | 2021-03-19 10:52 | NUR ---
500ML BOLUS COMPLETED. BP RECHECKED IS 70/50 MAO 57, HR 70 AND RR 24.
--- NOTE | 2021-03-19 11:10 | NUR ---
CALL TO DR COLINDRES TO UPDATE ON RECENT BP 66/50, PLAN TO CONT TO MONITOR FOR NOW, CONTINUE IVF AND MONITOR URINE OUTPUT.
--- NOTE | 2021-03-19 12:39 | NUR ---
ENSURE AND PEANUT BUTTER MILKSHAKE ORDERED FOR PT, ALTHOUGH SHE DENIED WANTING ANYTHING. PO INTAKE ENCOURAGED, PT WAS WILLING TO DRINK SOME OF THE APPLE JUICE ENSURE.
--- NOTE | 2021-03-19 14:11 | NUR ---
IN TO CHECK ON PT, PT WATCHING TV IN BED, REQUESTS PAIN MEDICATION FOR SACRAL ULCER. WILL GIVEN IV TORADOL.
--- NOTE | 2021-03-19 14:40 | NUR ---
IN TO GIVE PAIN MEDS, REPOSITION PT AND GIVE SIPS OF ENSURE. 15MG IV TORADOL GIVEN FOR 10/10 PAIN.
--- NOTE | 2021-03-19 16:07 | NUR ---
PT REPORTS NOT FEELING LESS PAINFUL SINCE PAIN MEDICATION GIVEN ALTHOUGH SHE IS MOVING AROUND IN BED BETTER AND FACE APPEARS MORE RELAXED AND LESS PAINFUL. WILL GIVE PRN ULTRAM NOW IT IS TIME. BED BATH GIVEN. COPIOUS AMOUNTS OF LOTION APPLIED TO LOWER EXTREMITIES. URINE OUTPUT HAS PICKED UP NOW, LAST FEW HOURS HAVE BEEN 70, 140, AND 90ML PER HOUR. PT SEEMS SATISFIED WITH BED BATH, WANTS TO BRUSH HER OWN HAIR, BRUSH GIVEN. PT NOW SITTING UP IN BED WITH BRUSH WATCHING TV. BPS REMAIN MOSTLY 70'S OVER 50'S WITH MAP AROUND 60. PT CONT TO BE ORIENTED, ANSWERING QUESTIONS APPROPRIATLEY. HAS NOT TRIED TO GET OUT OF BED OR ASK TO GO OUT TO SMOKE OR FIDGET WITH IV AT ALL SO FAR THIS SHIFT. SOME SHADING NOTED ON COCCYX ALLEVYN- OLD DRESSING REMOVED TO EXAMINE IT, IT APPEARS TO BE A SMALL AMOUNT OF DRIED BLOOD ABOUT 3CM AWAY FROM ULCER. WOUND AREA CLEANED WITH SALINE AND WOUND CLEANSER AND ALLOWED TO DRY. ULCER BED NOW IS WHITE WITH FEW SPOTS OF YELLOW IN IT. ALSO THERE IS AN OPEN AREA BELOW THE ULCER APPROX 4CM AND SLIGHTLY LEFT. THIS AREA WAS PREVIOUSLY NOT UNDER THE FOAM PART OF THE ALLEVYN ONLY THE PLASTIC PART, NEW ALLEVYN APPLIED WHICH COVERS BOTH SITES. THERE IS ALSO A BRUISE NOTED RIGHT ABOVE THE SACRAL AREA, THIS WAS ALSO COVERED WITH A SMALL ALLEVYN. PT C/O PAIN IN THIS ENTIRE AREA, POSITIONED ONTO LEFT SIDE. CALL LIGHT IN REACH.
--- NOTE | 2021-03-19 17:20 | NUR ---
50MG ULTRAM GIVEN FOR 8/10 COCCYX PAIN.
--- NOTE | 2021-03-19 17:27 | NUR ---
DR COLINDRES UPDATED ON PTS RECENT BP'S AND OTHER VS WELL URINE OUTPUT.
--- NOTE | 2021-03-19 18:56 | NUR ---
PT REPOSITIONED, FLOATED ONTO PILLOWS, HAD GOTTEN SELF ONTO BACK FOR A WHILE AND DID NOT WANT TO MOVE BUT REMINDED OF IMPORTANCE OF KEEPING OFF OF ULCER. PT REQUESTS MILKSHAKE, MILKSHAKE GIVEN WITH ADDED PROTEIN POWDER.
--- NOTE | 2021-03-19 19:10 | NUR ---
REPORT RECEIVED FROM DAY SHIFT NURSE JESSICA, ASSUMED CARE OF PATIENT AT THIS TIME.
--- NOTE | 2021-03-19 20:40 | NUR ---
PT ASSESSMENT IS COMPLETE. PT'S BP CONTINUES TO REMAIN IN 70'S-80'S SYSTOLIC, HELD HER 2100 METOPROLOL DOSE. HR IN 70'S. PT DOESN'T WANT TO CHANGE HER POSITION AT THIS TIME. PT STATES "I'M COMFORTABLE LIKE THIS" EMPTIED RAMON HAD 350 DRIANED. PT DRINKING MILKSKAE DOESNT WANT WATER, ENCOURAGED PT TO DRINK WATER AND EAT SOME FOOD. CALL LIGHT IN REACH RAILS UP FOR SAFTEY.
--- NOTE | 2021-03-19 22:00 | NUR ---
PT RESTING IN BED HOB ELEVATED 45 DEGREES, REMAINS N O2 NC 2L. TV ON, CALL LIGHT IN REACH, STILL AWAKE, DENIES NEEDS AT THIS TIME, DECLJINES OFFER FOR MELATONIN.
--- NOTE | 2021-03-19 23:17 | NUR ---
PT ASLEEP REMAINS ON O2 VIA NC 2 L. SATS 95% CURRENR BP 80/59, MAP 67. CALL LIGHT IN REACH. RAMON DRAINIING. MAINTENACNE FLUIDS CONTINUE.
--- NOTE | 2021-03-20 00:25 | NUR ---
PT POSITIONED TO HER RIGHT SIDE, REMAINS ON NASAL CANNULA AT 2 LITERS, PT SLEEPING, WILL BE IN TO DO HER ASSESSMENT SOON, CALL LIGHT IN REACH.
--- NOTE | 2021-03-20 04:11 | NUR ---
PT ASSESSMENT COMPLETE. PATIENT ASLEEP WITH NC ON SNORING, WILL WAKE UP AND RESPND BUT IS QUICKLY SLEEPING AGAIN. RAMON DRAINING, MAINTENANCE FLUIDS CONTINUE. PT ASKED IF SHE NEEDED ANYTHING RIGHT NOW AND STATES "NO" CALL LIGHT IN REACH. PT KEEPS KICKING OFF HER HEEL PROTECTORS. PT POSITINED TO HER LEFT.
--- NOTE | 2021-03-20 05:25 | NUR ---
LAB HAS BEEN IN ROOM TO DRAW PATIENT. SHE IS AWAKE BRIEFLY FOR THIS. ASKED PATIENT IF SHE NEEDED ANYTHING RIGHT NOW SHE SENIES THIS. IV MAINTEANCE FLUIDS CONTINUE INFUSING. IV SITE TO LEFT AC HAS NO SWELLING OR HARDNESS. PATIENT DENIES NEDING ANYTHING FOR PAIN. PT ENCOURAGED TO ROTATE TOWARD HER RIGHT SIDE TO HELP WITH HER SACRAL AREA. CALL LIGHT IN REACH.
--- NOTE | 2021-03-20 06:36 | NUR ---
PT CONTINUES TO SLEEP TOWARD HER RIGHT SIDE ON THE BED. O2 SATS ARE HIGH 90'S AT THIS TIME ON 2 LITERS NC. RAMON DRAINING.
--- NOTE | 2021-03-20 07:06 | NUR ---
PT'S PUMP BEEPING, FLUIDS WEERE DONE. NOTED SOME BLOOD WETNESS ON PT'S GOWN LOOKED AT IV SITE APPEARS TO HAVE SOME BLOODCOLLECTING AROUND INSERTION SITE TO LEFT AC. REMOVED TUBING AND ATTEMPTED TO FLUSH WILL NOT FLUSH. HAS SMALL HARDENED SWOLLEN SPOT ABOVE SITE.
--- NOTE | 2021-03-20 07:35 | NUR ---
PT RESTING WITH EYES CLOSED, RESP EVEN AND UNLABORED. AWAKENS EASILY, NEW IV STARTED IN LEFT FOREARM 22#. ASSESSMENT DONE, ALLEVYN TO COCCYX C/D/I. LUNGS HAVE FEW COARSE SOUNDS THROUGHOUT. PT SOUNDS LIKE SHE HAS SOME SECRETIONS IN BACK OF THROAT, ENCOURAGED HER TO COUGH, SHE DID A COUPLE OF VERY WEAK UNPRODUCTIVE SOUNDING COUGHS. RAMON DRAINING CLEAR LIGHT YELLOW URINE. WHEN ASKING PT IF SHE WOULD LIKE TO TRY ANYTHING FOR BREAKFAST AND DISCUSSING IMPORTANCE OF CALORIES FOR HEALING, SHE STARTED CRYING AND STATED "I JUST WANT TO GO HOME AND , IM SO TIRED OF THIS". SAT AND REASSURED PT AND LISTENED TO HER. AFTER SHE THEN CALLED TO STATE THAT BISCUITS AND GRAVY WAS THE ONLY THING THAT SOUNDED GOOD AND SHE WOULD TRY EATING THAT. HOWEVER [facility] STATES THEY DO NOT HAVE BISCUITS AND GRAVY AND WILL SEND SOME ITALIAN TOAST INSTEAD.
--- NOTE | 2021-03-20 08:11 | NUR ---
RT IN TO WORK WITH PT
--- NOTE | 2021-03-20 08:26 | NUR ---
DR COLINDRES IN TO SEE PT
--- NOTE | 2021-03-20 08:45 | NUR ---
ULTRAM 50MG PO GIVEN FOR 10/10 COCCYX PAIN. OTHER AM MEDS GIVEN. PT GIVEN BREAKFAST, TURNS HER HEAD AND SAYS, "NO ITS TOO EARLY TO EAT", STATES SHE WILL TRY LATER.
--- NOTE | 2021-03-20 09:35 | NUR ---
REPORT GIVEN TO HAMILTON JAY.
--- NOTE | 2021-03-20 10:07 | NUR ---
PT TRANSFERRED TO ROOM 109 WITH CALL CENTER SPECIALIST ON TELE.
--- NOTE | 2021-03-20 10:10 | NUR ---
pt arrived to floor via bed from ccu at this time. pt having coughing fit upon arrival- pt maintaining sats. pt able to cough up white/clear/thick sputum in a medium to large amount. this rn asssited pt in swabbing mouth to clear excess sputum away. pt only requesting ice water at this time and needs nothing further.
--- NOTE | 2021-03-20 12:10 | NUR ---
this rn in pts room, pt put implementation project manager light stating that she was still having issues with her cough attack. this rn to ask md for order for cough meds. pt still coughing up thick/white/clear sputum in large amounts at this time. this rn provided pt with oral swabs to assist with getting rid of excess sputum.
--- NOTE | 2021-03-20 12:40 | NUR ---
this rn in pts room with toradol, zofran and cough meds. pt still having cough attack. pt also reports that she has a headache and is nauseous from the pressure of coughing. pt requesting fresh ice water- all provided to pt.
--- NOTE | 2021-03-20 13:30 | NUR ---
this rn walking by room and pt motioned for this rn to come in, pt requesting new pillowcase due to having sputum on it, this rn provided pt with requested item. call light within reach and pt requesting nothing else at this time.
--- NOTE | 2021-03-20 15:55 | NUR ---
THIS RN IN PTS ROOM PER PT REQUEST, PT REQUESTING MORE COUGH MEDS. THIS RN EDUCATED PT ABOUT COUGH MEDS. PT STATED UNDERSTANING
--- NOTE | 2021-03-20 17:00 | NUR ---
THIS RN IN PTS ROOM, PT STILL REQUESTING COUGH MEDS. THIS RN EDUCATED PT ABOUT NOT BEING READY FOR THEM TO BE GIVEN.
--- NOTE | 2021-03-20 19:30 | NUR ---
SHIFT REPORT RECIEVED FROM KANDACE JAY. PT RESTING IN BED. OXYMASK @ 1L. NO NEEDS AT THIS TIME. CALL LIGHT IN REACH.
--- NOTE | 2021-03-20 20:20 | NUR ---
ASSISTED PRIMARY RN LORE. PATIENT WAS UP TO BEDSIDE COMMODE. V/S AND I7O'S DONE AND CHARTED. RAMON CARE DONE. PATIENT REPOSITIONED. NO OTHER NEEDS AT THIS TIME. CALL LIGHT AND SIDE TABLE WITHIN REACH.
--- NOTE | 2021-03-20 21:45 | NUR ---
ASSESSMENT COMPLETED. SCHEDULED MEDS PROVIDED. PRN PAIN MED PROVIDED FOR 10/10 COCCYX PAIN. COCCYX DRESSING CDI. PT ORIENTED TO PERSON AND PLACE. GCS 15. LUNGS COURSE IN RUL AND DIM IN ALL OTHER LOBES. HEART TONES REGULAT, TELE SR @ 80. ABD SOFT, NONTENDER, BOWEL TONES ACTIVE. CMS INTACT. SKIN IS DRY, FLAKEY ON LEGS. SCATTERED BRUISING NOTED. IV WML, FLUSHED WELL. PT UP TO BSC AND BACK TO BED, 2PA. RAMON WNL. NO OTHER NEEDS. CALL LIGHT IN REACH.
--- NOTE | 2021-03-20 23:59 | NUR ---
PT RESTING IN BED, EYES CLOSED. IV FLUIDS INFUSING PER ORDER. CALL LIGHT IN REACH. BED ALARM ON.
--- NOTE | 2021-03-21 01:24 | NUR ---
PT CALLS TO REPORT 7/10 BUTTOCKS PAIN, PRN PAIN MED PROVIDED. PT REPORTS COUGH, PRN COUGH MED PROVIDED. PT REPOSITIONED. PT TAKES OXY MASK OFF AND ON, EDUCATION PROVIDED. SPO2 92%. NO OTHER NEEDS. CALL LIGHT IN REACH BED ALARM ON.
--- NOTE | 2021-03-21 03:39 | NUR ---
PT RESTING IN BED, EYES CLOSED. RR EVEN, UNLABORED. CALL LIGHT IN REACH.
--- NOTE | 2021-03-21 05:42 | NUR ---
ASSESSMENT, VS AND I&O COMPLETED. LUNGS COURSE IN ALL LOBES. HEART TONES REGULAR. HR SR @ 78. OXYMASK @ 1L. IV WNL, IV FLUIDS INFUSING PER ORDER. EDUCATION PROVIDED ABOUT I.S. AND ACAPELLA USE. ENCOURAGED PT TO DRINK FLUIDS, OFFERED MANY OPTIONS, DECLINED. ICE WATER AND ICE CHIPS PROVIDED. NO OTHER NEEDS. CALL LIGHT IN REACH.
--- NOTE | 2021-03-21 07:20 | NUR ---
THIS RN RECEIVED REPORT FROM LORE JAY. PT APPEARS TO BE RESTING AT THIS TIME. TELE MONITOR IN PLACE .
--- NOTE | 2021-03-21 08:25 | NUR ---
WOUND CARE NURSE OPAL IS COORDINATING A TIME TO COME SEE PATIENT.
--- NOTE | 2021-03-21 09:10 | NUR ---
THIS RN IN PTS ROOM TO GIVE MORNING MEDS. IN PTS ROOM AT THIS TIME WELL, PT REPORTS THAT SHE IS NOT FEELING WELL THIS AM- REPORTS THAT SHE IS HAVING PAIN IN HER SACRAL AREA NEAR WOUND- WOUND CARE CONSULT ORDER PLACED AND WOUND CARE TEAM NOTIFIED. THIS RN PROVIDED PT WITH TESSALON AND TRAMADOL TO ASSIST PT TO BE MORE COMFORTABLE
--- NOTE | 2021-03-21 09:15 | NUR ---
PER MARYBETH BLADE GRINDER AT [facility] PATIENT IS ABLE TO RETURN TODAY WHEN READY. ADVISED MARYBETH THAT CASE MANAGEMENT WILL SET UP WHEELCHAIR VAN RIDE BACK TO FACILITY WHEN PATIENT IS READY. HAMILTON JAY AND KEIRA JAY UPDATED. PER HAMILTON JAY PATIENT NEEDS TO BE SEEN BY WOUND CARE PRIOR TO DISCHARGE. HAMILTON TO NOTIFY CASE MANAGEMENT WHEN PATIENT IS READY.
[2021-03-21] MEDS ORDERED: CIPROFLOXACIN250 MG PO (09:26)
[2021-03-21] MEDS ORDERED: BENZONATATE100 MG PO (09:27)
--- NOTE | 2021-03-21 09:42 | NUR ---
Call light is in reach. Patient refused breakfast.
--- NOTE | 2021-03-21 11:30 | NUR ---
aubrey rn in pts room for wound consult with this rn. aubrey to put in wound care orders for wound.
--- NOTE | 2021-03-21 11:59 | NUR ---
LE 1100 WENT TO SEE PT FOR WOUND CONSULT. PT'S RN AT BEDSIDE DURING DRSG CHANGE. PT TOLERATED DRSG CHANGE WITH MINIMAL C/O'S. SEE WOUND ASSESSMENT FOR DOCUMENTAION. 1130 TC TO [facility] RN WITH UPDATE ON PT'S WOUND. ALL QUESTIONS ANSWERED.
[2021-03-22] MEDS ORDERED: PREDNISONE20 MG PO (15:05)
[2021-03-22] MEDS ORDERED: VENTOLIN HFA18 GM INH (15:05)
== END 2021-03-21 13:30 | disposition home or self-care (01) | DRG 193 ==
LOC: ED 02:58 → CCU 07:10 → MS 03-20 10:10
PROVIDERS: ADMIT Internal Medicine; ATTEND Internal Medicine
DX: J12.1 Respiratory syncytial virus pneumonia (principal); E43 Unspecified severe protein-calorie malnutrition; J44.0 Chronic obstructive pulmonary disease with (acute) lower respiratory infection; Z68.1 Body mass index [BMI] 19.9 or less, adult; R64 Cachexia; N17.9 Acute kidney failure, unspecified; Z66 Do not resuscitate; Z20.822 Contact with and (suspected) exposure to COVID-19; F32.A Depression, unspecified; I10 Essential (primary) hypertension; K59.00 Constipation, unspecified; D64.9 Anemia, unspecified; R56.9 Unspecified convulsions; I95.9 Hypotension, unspecified; I48.91 Unspecified atrial fibrillation; K21.9 Gastro-esophageal reflux disease without esophagitis; E83.42 Hypomagnesemia; E83.39 Other disorders of phosphorus metabolism; L89.159 Pressure ulcer of sacral region, unspecified stage; F17.210 Nicotine dependence, cigarettes, uncomplicated; N31.9 Neuromuscular dysfunction of bladder, unspecified; Z86.73 Personal history of transient ischemic attack (TIA), and cerebral infarction without residual deficits; Z87.440 Personal history of urinary (tract) infections; Z98.818 Other dental procedure status; Z90.49 Acquired absence of other specified parts of digestive tract; Z98.890 Other specified postprocedural states; Z88.6 Allergy status to analgesic agent; Z88.8 Allergy status to other drugs, medicaments and biological substances; Z79.01 Long term (current) use of anticoagulants; Z79.899 Other long term (current) drug therapy
CPT/HCPCS: 71045; 80048; 80053; 80185; 81001; 82607; 83605; 83735; 84100; 85025; 85610; 87077; 87088; 87186; 94640; 94667; 94668; 94760; 99285-25; C9803; J0456; J0696; J1885; J2405; J3475; J3480; J7030; J7050; J7060; U0003

== ENCOUNTER 2021-03-22 11:05 | Emergency (ER) | payer MEDICARE, OTHER ==
[~2021-03-22] VITALS: Ht 160 cm; Wt 47.6 kg
[~2021-03-22 11:05] MED LIST changes: +CIPROFLOXACIN250 MG PO; +ELIQUIS5 MG PO; +LEVETIRACETAM1000 MG PO
--- OUTSIDE RECORDS SUMMARY | 2021-03-22 11:12 | XMS ---
PreManage Notification: ROE DURAN Security Table Filler Events No recent Security Events currently on file CRITERIA MET - Group Notification - [facility] - 2 Visits in 30 Days CARE PROVIDERS Delio Cortés DO [facility] Current PHONE: Unknown YANELI COFFEY Nurse Practitioner: Family 05/14/2019-Current PHONE: Unknown Daniel Barrientos Perl Software Engineer/Third Mate 02/16/2021-Current PHONE: [phone] Gonzalo has no Care Guidelines for this patient. Care History Medical/Surgical 08/26/2019 [facility] Patient has follow up appointment with Dr. Rueda on 09/02/2019. 05/14/2019 [facility] - Patient is currently established with [facility]. If patient is seen in the ED during business hours. Please contact CHWs at [facility]. - Care Recommendation: If this [...] clinical judgment when providing care. 04/08/2018 [facility] - PATIENT CURRENT UROLOGIST IS DR RUEDA- NEXT APT WITH DR UREDA IS ON 2018. - PATIENT WAS DISCHARGED FROM HOME HEALTH SERVICES THROUGH [facility]. - PATIENT DID NOT SEE PCP FOR A F2F FORM AND NO SHOWED TO 2 APTS. E.D. VISIT COUNT (12 MO.) 2 [facility]. TOTAL 2 NOTE: Visits indicate total known visits. ED/UCC VISIT TRACKING (12 MO.) 03/22/2021 11:06 [facility] TYPE: Emergency COMPLAINT: - RECTAL PROBLEM 03/18/2021 02:59 [facility] TYPE: Emergency COMPLAINT: - SKIN PROBLEM INPATIENT VISIT TRACKING (12 MO.) 03/18/2021 07:10 [facility] TYPE: Medical Surgical COMPLAINT: - RSV PNEUMONIA, HYPOTENSION [email or web address]
[2021-03-22] MEDS ORDERED: VENTOLIN HFA18 GM INH (15:05)
[2021-03-22] MEDS ORDERED: PREDNISONE20 MG PO (15:05)
== END 2021-03-22 16:00 | disposition home or self-care (01) ==
LOC: ED 11:05
DX: J44.1 Chronic obstructive pulmonary disease with (acute) exacerbation (principal); I10 Essential (primary) hypertension; I48.91 Unspecified atrial fibrillation; D64.9 Anemia, unspecified; K21.9 Gastro-esophageal reflux disease without esophagitis; F17.200 Nicotine dependence, unspecified, uncomplicated; Z88.5 Allergy status to narcotic agent; Z79.01 Long term (current) use of anticoagulants; Z79.899 Other long term (current) drug therapy; Z88.8 Allergy status to other drugs, medicaments and biological substances
CPT/HCPCS: 71045; 80048; 83735; 85025; 94640; 96374; 99285-25; J2930

== ENCOUNTER 2021-03-23 13:47 | Inpatient (IN) | payer MEDICARE, OTHER ==
[~2021-03-23] VITALS: Ht 160 cm; Wt 46.2 kg
--- OUTSIDE RECORDS SUMMARY | 2021-03-23 14:06 | XMS ---
PreManage Notification: ROE DURAN Security Pressroom Foreman Events No recent Security Events currently on file CRITERIA MET - Group Notification - [facility] - Has Care Guidelines - [facility] - 2 Visits in 30 Days CARE PROVIDERS Delio Cortés DO [facility] Current PHONE: Unknown LUCIANA LINDO [facility] 03/23/2021-Current PHONE: [phone] Daniel Barrientos Diamond Expert/Rate Supervisor 02/16/2021-Current PHONE: [phone] Gonzalo has no Care Guidelines for this patient. Care History Medical/Surgical 03/23/2021 [facility] Patient was seen by Dr. Lindo on 03/15/2021 and has follow up on 03/24/2021 03/23/2021 [facility] - Patient is currently established with [facility]. If patient is seen in the ED during business hours. Please contact CHWs at [facility]. - Care Recommendation: If this patient has had 5 or more Emergency Department visits in the last 12 months. Patient will require education on the scope and purpose of the ED as an acute care provider not a Primary Care Provider and should not be utilized for chronic conditions. These are guidelines and the provider should exercise clinical judgment when providing care. 08/26/2019 [facility] Patient has follow up appointment with Dr. Gruber on 09/02/2019. Trudi VISIT COUNT (12 MO.) 4 [facility]. TOTAL 4 NOTE: Visits indicate total known visits. ED/UCC VISIT TRACKING (12 MO.) 03/23/2021 13:48 [facility] TYPE: Emergency COMPLAINT: - SEIZURE 03/23/2021 00:00 [facility] TYPE: Emergency COMPLAINT: - SOB 03/22/2021 11:06 [facility] TYPE: Emergency COMPLAINT: - RECTAL PROBLEM 03/18/2021 02:59 [facility] TYPE: Emergency COMPLAINT: - SKIN PROBLEM INPATIENT VISIT TRACKING (12 MO.) 03/18/2021 07:10 [facility] TYPE: Medical Surgical COMPLAINT: - RSV PNEUMONIA, HYPOTENSION DIAGNOSES: - Other dental procedure status - shelter (current) use of anticoagulants - Hypotension, unspecified - Pressure ulcer of sacral region, unspecified stage - Hypomagnesemia - Other shelter (current) drug therapy - DEPRESSION, UNSPECIFIED - Unspecified convulsions - Acquired absence of other specified parts of digestive tract - Chronic obstructive pulmonary disease with (acute) lower respiratory infection - Personal history of urinary (tract) infections - Allergy status to analgesic agent - Gastro-esophageal reflux disease without esophagitis - Cachexia - Do not resuscitate - Respiratory syncytial virus pneumonia - Other disorders of phosphorus metabolism - Constipation, unspecified - Anemia, unspecified - Unspecified atrial fibrillation - Chronic obstructive pulmonary disease with (acute) exacerbation - Allergy status to other drugs, medicaments and biological substances - Essential (primary) hypertension - Neuromuscular dysfunction of bladder, unspecified - Personal history of transient ischemic attack (TIA), and cerebral infarction without residual deficits - Other specified postprocedural states - Nicotine dependence, cigarettes, uncomplicated - Unspecified severe protein-calorie malnutrition - Body mass index [BMI] 19.9 or less, adult [email or web address]
--- NOTE | 2021-03-23 16:37 | EKG ---
[facility] [address] [place] [address] Signed Normal sinus rhythm Right atrial enlargement Rightward axis Pulmonary disease pattern Nonspecific ST and T wave abnormality Prolonged QT Abnormal ECG No previous ECGs available Confirmed by ANNIE POWERS MD ([id number]) on 03/23/2021 4:37:33 PM Electronically Signed By: ANNIE POWERS MD 03/23/21 1637 PATIENT NAME: ROE DURAN Electrocardiogram DATE OF : 62 PHYSICIAN: ANNIE POWERS MD REPORT #: [id number] REPORT IS CONFIDENTIAL AND NOT TO BE RELEASED WITHOUT AUTHORIZATION
--- NOTE | 2021-03-23 16:45 | NUR ---
REPORT RECIEVED FROM ROUTER OPERATOR RADIAL, CARE OF PT ASSUMED AT THIS TIME PT ARRIVED VIA STRETCHER ON BIPAP AND CARDAIC MONITOR. PT SOLMOLENT UPON ARRIVAL, RESPONDS TO PRESSURE BY OPENING EYES, BUT LIMBS ARE FLACCID. PT MOVED BY TWO RNS OVER TO HOSPITAL BED.
--- NOTE | 2021-03-23 17:45 | NUR ---
INTAKE ASSESSMENT COMPLETED. OLD RAMON CATHETER DC'D, NEW RAMON CATHETER INSERTED AT THIS 500 MLS OF IMMEDIATE RETURN. LUNGS SOUND COARSE IN BOTH BILARTERAL BASES. PT NOW OPENING EYES TO TOUCH AND MUMBLING WORDS IN RESPONSE TO QUESTIONS. IV MEDICATIONS ADMINISTERED. PT PLACED ON 15 L NRB MASK, SPO2 = 100 PERCENT, NOW ON 2 L NC , SPO2 = 97%. PT HAS A TUNNELING BEDSORE ON COCCYX, PHOTOS IN CHART. ALLEVYN DRESSING PT OVER AND PT FLOATED ON TWO PILLOWS. AZITHROMYCIN NOW INFUSING. WILL CONTINUE TO MONITOR.
--- NOTE | 2021-03-23 19:15 | NUR ---
REPORT RECEIVED FROM DAYSHIFT NURSES. PT ADMITTED FROM ED FOR SEIZURE AND RESPIRATORY FAILURE, WAS ON BIPAP IN ED, NOT ON BIPAP IN CCU CURRENTLY ON 2 LITER NASAL CANNULA, SATS 93%. PT BECOMING MORE REPSONSIVE. PT HARD TO UNDERSTAND HEN SPEAKING.
--- NOTE | 2021-03-23 20:02 | NUR ---
PT HORIZONTAL BORING MILL OPERATOR LIGHT. ASKING TO BE MOVED UP. ELEVATED HOB ABOUT 45 DEGREES. PT INFORMED SHE WILL BE GETTING A BREATHING TREATMENT SOON. DENIES OTHER NEEDS
--- NOTE | 2021-03-23 21:00 | NUR ---
PT ASSESSMENT COMPLETE. PT HAS RECEIVED HER 1999 DUONEB PER YAZ RT. PT REPOSITIONED ONTO HER LEFT SIDE WITH PILLOWS WILL CONTINUE TO REPOSITION PT THRUOUGHT THE NIGHT DUE TO SKIN BREAKDOWN ISSUES. PT CLEAN AND DRY RAMON DRAINING. REMAINS ON 2 LITERS NC O2 SATS IN MID 90'S. WARM BLANKETS APPLIED
--- NOTE | 2021-03-23 22:47 | NUR ---
PT'S ALARMS ON MONITOR BEEPING, SAT NOTED TO BE IN THE 88% RANGE GOOD PLETH. PATIENT'S O2 INCREASED TO 4 LITER ON NC, SATS 93%. RR 26. PT REPOSITIONED TOWARD HER RIGHT SIDE. PROPPED WITH PILLOWS. BACKSIDE CLEAN NO BM, DRESSING CLEAN INTACT AND DRY, RAMON DRAINING. CALL LIGHT IN REACH.
--- NOTE | 2021-03-23 23:22 | NUR ---
PT ASLEEP, REMAINS WITH O2 4 LITERS NC AT THIS TME TO KEEP SATS IN MID 90S. RR 24.
--- NOTE | 2021-03-23 23:55 | NUR ---
YAZ ANAND IN ROOM GIVING PATIENT HER MIDNIGHT DUONEKvng.
--- NOTE | 2021-03-24 00:44 | NUR ---
PT ASSESSMENT COMLETE. PT RESTING ON HER RIGHT SIDE WITH PILLOWS PROPPING. HER BACKSIDE IS CLEAN, DRESSING TO COCCYX IS DRY INTACT. REMAINS ON O2 4 LITERS SATS 92%, PT SNORING, MOUTH BREATHING. CALL LIGHT IN REACH.
--- NOTE | 2021-03-24 02:03 | NUR ---
CHECKED ON PT. SHE REMAINS ASLEEP, LAYING ON HER RIGHT SIDE. CHECKED HER BACKSIDE, NO BM NOTED, HER COCCYX DRESING IS CLEAN AND INTACT. FLOATED PATIENTS KNEES AND HIPS WITH PILLOWS . SHE REMAINS ON 4 LITERS NC SATS 91%.
--- NOTE | 2021-03-24 03:35 | NUR ---
PT CONTINUES TO SLEEP, 4 LITERS NC. RAMON IS DRAINING.
--- NOTE | 2021-03-24 03:45 | NUR ---
PT EYES ARE OPEN, BEGINS TO SPEAK TO THIS RN, PT HAS HER NASAL CANNULA OFF. ENCOURAGED PT TO KEEP IN HER NARES EXPLAINED THAT IT WAS HELPING WITH HER OXYGEN SATURATION, PT STATES "WHATABOUT THE MASK, THIS IS BOTHERING MY NOSE" PT INFORMED THAT YAZ FROM [facility] WOULD BE HERE SOON TO GIVE HER A 0400 NEB AND WOULD BE ABLE TO DO THAT FOR HER. PT ROTATED ON HER LEFT SIDE PROPPED WITH PILLOWS BEHIND BACK AND TAILBONE. HER COCCYX DRESSING IS DRY AND INTACT, NO BM. RAMON IS DRAINING URINE MORE CONCENTRATED. SATS 93% 4 LITERS NC. DENIES OTHER NEEDS.
--- NOTE | 2021-03-24 05:59 | NUR ---
PT CONTINUES STATING THAT THE CANNULA IS BOTHERING HER NOSE AND WOULD REALLY PREFER TO WEAR A MASK. PLACED OXYMASK ON PT. AT 4LITERS. SATS 97%. PT CHECKED AND SHE IS CLEAN AND DRY ON HER BOTTOM, DRESSING DRY AND INTACT. RAMON EMPTIED 250 ML OUT.
--- NOTE | 2021-03-24 06:18 | NUR ---
PT IS MORE ALERT AND TALKATIVE, INSISTING ON WATCHING NEWS. PT ASKING FOR SOMETHING TO DRINK. GAVE PATIENT A FEW SIPS OF ICE WATER. PT TOLERATED FINE. PT ROLLED ONTO HER RIGHT SIDEPLACED PILLOW UNDER RIGH HIP TO PROP HER ON SIDE.
--- NOTE | 2021-03-24 07:25 | NUR ---
REPORT RECIEVED FROM SUPERVISOR FORCE ADJUSTMENT RN, CARE OF PT ASSUMED AT THIS TIME. CIGARETTE LIGHTER REPAIRER CURRENTLY IN ROOM WITH PT. DENIES NEEDS AT THIS TIME.
--- NOTE | 2021-03-24 07:55 | NUR ---
Spoke with Jeni, whom I have know for many years. She is not quite her self, but is able to answer questions. Pt has lives for many years at [facility]. All needs are provided, including bathing. Pt has awalker, but uses a wc most of the time now. Catheter is in place and is managed by [facility] . Pt denies needs and plans on return to [facility] on dc.
[2021-03-24] MEDS ORDERED: SERTRALINE HCL50 MG PO (08:18)
[2021-03-24] MEDS ORDERED: SERTRALINE HCL100 MG PO (08:18)
[2021-03-24] MEDS ORDERED: CIPROFLOXACIN250 MG PO (08:30)
[2021-03-24] MEDS ORDERED: METOPROLOL TART25 MG PO (08:33)
[2021-03-24] MEDS ORDERED: PHENYTOIN SODI100 MG PO (08:36)
[2021-03-24] MEDS ORDERED: IBUPROFEN400 MG PO (08:42)
[2021-03-24] MEDS ORDERED: BENZONATATE100 MG PO (08:45)
[2021-03-24] MEDS ORDERED: DULCOLAX10 MG PR (08:49)
[2021-03-24] MEDS ORDERED: MILK OF MA400 MG/5 M PO (08:50)
--- NOTE | 2021-03-24 08:52 | NUR ---
MED REC COMPLETED BY PHARMACY
--- NOTE | 2021-03-24 08:57 | NUR ---
ASSESSMENT COMPLETED. LUNGS SOUND COARSE THROUGHOUT. PT GIVEN SCHEDULED BREATHING TX BY RT. PLAN OF CARE ESTABLISHED. PT ASKING FOR WATER. OK'D BY DR POWERS TO ADVANCE DIET. GIVEN 300 CC OF WATER. NO SWALLOWING ISSUES NOTED. CALL LIGHT WITHIN REACH. DENIES FURTHER NEEDS AT THIS TIME.
--- NOTE | 2021-03-24 10:00 | NUR ---
Unable to reach [facility] by phonee. Texted Mark and asked if pt can return when she is medically cleared. Awaiting answer.
--- NOTE | 2021-03-24 11:17 | NUR ---
PATIENT GIVEN BEDBATH AND LINEN CHANGE. PATIENTS HAIR WAS VERY MATTED, THIS PROCUREMENT MANAGER AND MISTY LERMA WORKED FOR SEVERAL MINUTES TO COMB THROUGH THE TANGLES. PATIENT REQUESTED THE HAIR BE "WHACKED OFF." THIS PROCUREMENT MANAGER CUT ABOUT 4 INCHES OF HAIR AND KNOTS OFF. PATIENTS HAIR IS NOW FRECH BRAIDED AND PATIENT IS CONTENT. PATIENT REPOSITIONED ONTO PILLOWS FOR COMFORT. CALL LIGHT IN EASY REACH
--- NOTE | 2021-03-24 11:44 | NUR ---
Report received from MISTY Briscoe, pt stable on 4L via oxymask, [facility]
--- NOTE | 2021-03-24 11:45 | NUR ---
REPORT CALLED TO MISTY RIOS ON MEDICAL FLOOR. PT TRANSPORTED BY EKATERINA RIOS AT THIS TIME. ALL BELONGINGS TRANSPORTED WITH PT.
--- NOTE | 2021-03-24 12:00 | NUR ---
[facility] VSS on 4L via NC. Pt denies any further needs at this time
--- NOTE | 2021-03-24 14:00 | NUR ---
Pt sitting up in bed safely w/ call light in reach, no needs at this time
--- NOTE | 2021-03-24 16:00 | NUR ---
Pt resting safely in bed w/ call light in reach, watching TV, no needs at this time
--- NOTE | 2021-03-24 18:00 | NUR ---
Pt resting in bed w/ call light in reach, no needs at this time
--- NOTE | 2021-03-24 19:35 | NUR ---
SHIFT REPORT RECEIVED FROM DAYSHIFT RN GABRIEL, pt AWAKE AND RESTING IN BED. 2LNC IN PLACE, SPO2 93%, HR 94. NO DISTRESS NOTED, CALL LIGHT IN REACH AND BEDALARM ON FOR SAFETY. NO ADDITIONAL NEEDS VERBALIZED.
--- NOTE | 2021-03-24 22:20 | NUR ---
ASSESSMENT COMPLETE, pt FOUND WITH 2LNC OFF OF pt, SPO2 81% ON RA. 2LNC BACK IN PLACE, SPO2 NOW SUSTAINING FROM 93-95%, HR WNL. pt A/O TO SELF AND PLACE. REORIENTED TO DATE AND TIME. BED ALARM ON. IV SITE WNL, BRISK BLOOD RETURN NOTED. FLUSHES EASILY AND SALINE LOCKED. pt REPOSITIONED IN BED, BILATERAL HIPS FLOATED. MEDS GIVEN WITHOUT ISSUE. NO FURTHER NEEDS, CALL LIGHT IN REACH.
--- NOTE | 2021-03-24 23:30 | NUR ---
pt RESTING IN BED WITH EYES CLOSED, RR EVEN AND UNLABORED. SPO2 93-94% ON 2LNC, HR WNL. CALL LIGHT IN REACH AND BED ALARM REMAINS ON.
--- NOTE | 2021-03-25 00:15 | NUR ---
YAZ IN ROOM TO GIVE SCHEDULED NEB TREATMENT. pt REMAINS ON 2LNC, SPO2 LOW 90'S, HR WNL. BED ALARM REMAINS IN PLACE. EKATERINA HAMILTON IN ROOM TO REPOSITION pt.
--- NOTE | 2021-03-25 00:30 | NUR ---
REPOSITION PT WITH REMOVING PILLOW ON LEFT HIP, RT IN RM, SPO2 CHECKED, 95-97% 2LNC
--- NOTE | 2021-03-25 02:05 | NUR ---
pt RESTING IN BED WITH EYES CLOSED, RR EVEN AND UNLABORED. RATE WNL. NO DISTRESS NOTED. 2LNC REMAINS IN PLACE. BED ALARM REMAINS ON AND CALL LIGHT IN REACH.
--- NOTE | 2021-03-25 02:45 | NUR ---
IN TO REPOSITION PT WITH PILLOWS TO BOTH HIPS, EMPTIED RAMON, SPO2 CHECK, MID-HIGH 90s%, RN PRESENT DURING CARES
--- NOTE | 2021-03-25 02:59 | NUR ---
UO TRENDING DOWN THIS SHIFT. TOTAL UO THUS FAR THIS SHIFT IS 135MLS. MD POWERS MADE AWARE. CATHETER PATENT AND WORKING WNL. NO NEW ORDERS RECEIVED AT THIS TIME, PER DR POWERS, NO NEED TO CALL IN AM IF UO CONTINUES TO BE BELOW PARAMETERS. NEWSPAPER SUBSCRIPTION SOLICITOR LEXI MADE AWARE. pt TITRATED FROM 2LNC TO 1LNC, SPO2 91-93%. ASSESSMENT COMPLETE, pt DROWSY, BUT AWOKE TO VOICE. DENIES NEEDS OR CONCERNS. CALL LIGHT IN HARINDER AND BED ALARM ON. BILATERAL HIPS FLOATED, BLE REMAIN ELEVATED IN BED.
--- NOTE | 2021-03-25 05:30 | NUR ---
in to get vitals, pt awakes to voice/touch, pillow pulled from right hip to repostiton pt, murray shelton, rn informed of amt, no further needs at this time
--- NOTE | 2021-03-25 06:09 | NUR ---
pt CONTINUES TO REST, 1LNC IN PLACE. RR EVEN AND UNLABORED. NO DISTRESS NOTED. BED ALARM REMAINS ON FOR SAFETY, CALL LIGHT IN REACH.
--- NOTE | 2021-03-25 06:49 | NUR ---
MOST RECENT RAMON EMPTYING, RESULT OF 40MLS PER [employer] SALES CONSULTANT ALFONSO. MESSAGE SENT TO MD POWERS. CROP FARM HELPER LEXI UPDATED. PER MD FROM PREVIOUS CONVERSATION WITH THIS RN EARLIER IN SHIFT, NO NEED TO NOTIFY HIM OF DECREASED UO.
--- NOTE | 2021-03-25 07:31 | NUR ---
Shift report received from MISTY Manuel, pt resting safely in bed w/ call light in reach, pt given warm blanket upon request no further needs at this time
--- NOTE | 2021-03-25 10:00 | NUR ---
Pt resting in bed safely w/ call light in reach. Morning assesment complete and scheduled meds given per provider order. Pt denies any pain or needs at this time. Pt did not eat breakfast but did drink a protein shake.
--- NOTE | 2021-03-25 12:00 | NUR ---
Pt resting in bed w/ call light in reach, Dr. Sauceda in room to asses pt, pt will not be discharging back to [facility] today and a consult for PT has been ordered as pt continues to be weak, pt also requiring 2L O2 which is not chronic for her
--- NOTE | 2021-03-25 12:30 | NUR ---
2PA to BSC then chair, pt unable to have a BM at this time, now sitting up in chair safely w/ call light in reach and chair alarm on. Pt refusing to eat lunch but drinking a protein shake.
--- NOTE | 2021-03-25 14:00 | NUR ---
Spoke with Jeni, cont. to feel well. May or maynot return to [facility] today. Dr. Sauceda states pt tells him she can walk on her own and transfer. Discussed I do not believe this is correct. Called Mark at [facility] from my office and Dr. Sauceda was able to ask questions to pt ability. Pt is not at baseline. Per Mark, pt only transfers self to and it is not safe. Pt will remain in the hospital.
--- NOTE | 2021-03-25 14:00 | NUR ---
Pt called stating she is having 7/10 pain in coccyx, 2PA back to bed laying on left side and floated w/ pillows. PRN pain meds given pt denies any other needs at this time. Call light in reach and bed alarm on
--- NOTE | 2021-03-25 16:00 | NUR ---
PT in room working w/ pt, no needs at this time.
--- NOTE | 2021-03-25 17:15 | NUR ---
Pt could be heard calling out for help, pt was found laying on the floor. Pt A+O x3. Pt's O2 sats 75% as pt was not wearing O2, Oxymask placed back on pt who recovered quickly VS now stable on 2L via Oxymask. Pt states, "I did not fall, I crawled out of bed and scooted across the floor trying to reach my pajama pants". 2PA back to bed, pt now resting in bed safely w/ call light in reach and be alarm on.
--- NOTE | 2021-03-25 17:35 | NUR ---
Dr. Sauceda called and notified via telephone, no new orders at this time.
--- NOTE | 2021-03-25 18:25 | NUR ---
Pt resting safely in bed w/ call light in reach and bed alarm on. Pt denies any needs at this time
--- NOTE | 2021-03-25 19:05 | NUR ---
SHIFT REPORT RECEIVED FROM DAYSCAFT MISTY RIOS AT BEDSIDE. pt RESTING IN BED, AWAKE. 2LNC IN PLACE, RR EVEN AND UNLABORED. SPO2 MID 90'S. BED ALAMR ON AND CALL LIGHT IN REACH.
--- NOTE | 2021-03-25 19:38 | NUR ---
WOUND NURSE CONSULT: PT WITH STAGE 3 PRESSURE INJURY TO COCCYX. 1CM X 1CM X 1CM. BASE OF WOUND IS PALE. EDGES ARE MASERATED WITH UNDERMITTING. THERE IS SCANT AMOUNT OF CHAPIN DRAINAGE. PT REPORTS THE AREA IS VERY PAINFUL. WOUND DRESSED WITH ALLEVYN. RECOMMEND SURGERY CONSULT FOR DERIDEMENT. EGG CRATE CARTON FOR PRESSURE RELEIF. DR POWERS NOTIFIED. HE WILL ASSESS WOUND TOMORROW AND MAKE DECISION.
--- NOTE | 2021-03-25 20:09 | NUR ---
WOUND NURSE CONSULT: PT WITH STAGE 3 PRESSURE INJURY TO COCCYX. 1CM X 1CM X 1CM. BASE OF WOUND IS PALE. EDGES ARE MASERATED WITH UNDERMITTING. THERE IS SCANT AMOUNT OF CHAPIN DRAINAGE. PT REPORTS THE AREA IS VERY PAINFUL. WOUND DRESSED WITH ALLEVYN. RECOMMEND SURGERY CONSULT FOR FURTHER EVALUATION AND POSSIBLE NEED FOR DERIDEMENT. EGG CRATE CARTON FOR PRESSURE RELIEF DR POWERS NOTIFIED. HE WILL ASSESS WOUND TOMORROW AND MAKE DECISION.
--- NOTE | 2021-03-25 20:10 | NUR ---
pt called, in rm, pt needed to get up to the bsc for bm, 1-2pa pivot to bsc, pt unable to have bm, pt pivots back to bed without walker, pt pulled up pants by herself while laying down, boosted in bed, vitals and gao done, fresh ice water provided to pt, no further needs at this time, bed alarm set
--- NOTE | 2021-03-25 20:22 | NUR ---
PT DID NOT HAVE OM ON WHEN WE ENTERED THE ROOM SPO2 READ IN THE LOW 80'S SHE IS BACK ON 2 LOM AT THIS TIME. PT STATES SHE DOES FEEL SOB. SPO2 WNL NOW. IN ROOM TO ASSIST PT TO BSC 2PA WITH ALFONSO TOBAR. PT IS BACK IN BED. ADMINISTERED NEB TRT PER ORDERS R.T. IS UNABLE TO GET TO THE MEDSUR FLOOR AT THIS TIME. VS ENTERED PT DENIES FURTHER NEEDS AT THIS TIME. BED ALARM IS ON AND CALL LIGHT IS CLOSE.
--- NOTE | 2021-03-25 22:18 | NUR ---
IN ROOM TO ADMINISTER EVENING MEDS. PT DENIES FURTHER NEEDS AT THIS TIME. FRESH ICE PROVIDED, BED ALARM IS ON AND CALL LIGHT IS CLOSE.
--- NOTE | 2021-03-25 23:00 | NUR ---
ASSESSMENT COMPLETE, SPO2 88-92% ON RA, pt FOUND WITHOUT OM ON FACE. OXYMASK RESUMED, 1L. SPO2 REMAINS WNL, MID 90'S. pt A/O TO ALL BUT DATE AND TIME. EASILY REORIENTED, EGG CRATE IN PLACE, pt REPORTS SOME DISCOMFORT, BUT IMPROVED GREATLY AFTER EGG MAT PLACEMENT. PILLOWS ALSO UNDER BILATERAL HIPS. IV SITE WNL, FLUSHES EASILY. BRISK BLOOD RETURN NOTED. FRESH ICE WATER PROVIDED, NO FURTHER NEEDS. CALL LIGHT IN REACH.
--- NOTE | 2021-03-26 00:53 | NUR ---
SCHEDULED ADVIL GIVEN FOR PAIN IN HEADACHE, SEE EMAR. NO FURTHER NEEDS, CALL LIGHT IN REACH. BED ALAMR REMAINS ON FOR SAFETY.
--- NOTE | 2021-03-26 01:16 | NUR ---
pt RESTING IN BED, AWAKE. FRESH CUP OF ICE PROVIDED. 2LOXYMASK REMAINS IN PLACE, RT YAZ TITRATED pt FROM 1LOM TO 2LOM EARLIER IN SHIFT. RR EVEN AND UNLABORED, NO DISTRESS NOTED. pt ABLE TO TURN SELF IN BED AND REPOSITION. BED ALARM REMAINS ON AND CALL LIGHT IN REACH.
--- NOTE | 2021-03-26 01:30 | NUR ---
in to check on pt, pt awake, tangled in her blanket, assisted pt with blankets, pt asked if she needed a pillow under one of her hips, pt declines, but observed pt position self at times
--- NOTE | 2021-03-26 02:24 | NUR ---
pt RESTING IN BED, EYES CLOSED. NO DISTRESS NOTED. 2LOM IN PLACE. RR EVEN AND UNLABORED. BEDSIDE CPOX IN PLACE TO MONITOR SPO2. CALL LIGHT IN REACH AND BED ALARM ON FOR SAFETY.
--- NOTE | 2021-03-26 03:40 | NUR ---
ASSESSMENT COMPLETE, NO ACUTE CHANGES. pt AWAKE. 2LOM IN PLACE, SPO2 96%. RR 20-22. NO DISTRESS NOTED. pt REFUSES REPOSITIONING AT THIS TIME, EDUCATION PROVIDED. pt VERBALIZED UNDERSTANDING. NO FURTHER NEEDS VERBALZIED, CALL LIGHT IN REACH. BED ALARM REMAINS ON.
--- NOTE | 2021-03-26 04:21 | NUR ---
pt RESTING IN BED WITH EYES CLOSED, RR EVEN AND UNLABORED. SPO2 MID 90'S ON 2L OXYMASK. CALL LIGHT IN REACH AND BED ALARM ON.
--- NOTE | 2021-03-26 06:42 | NUR ---
pt RESTING IN BED WITH EYES CLOSED, 2LOM REMAINS IN PLACE, RR EVEN AND UNLABORED. pt RESTING ON HER RIGHT SIDE, CALL LIGHT IN REACH AND BED ALARM ON FOR SAFETY.
--- NOTE | 2021-03-26 08:00 | NUR ---
patient in the bed resting. MANUFACTURE SPECIALIST asked patient if she wanted to get up and sit in the chair for breakfast. patient refused and said she wanted to sleep some more. call light within reach. no further needs at this time.
--- NOTE | 2021-03-26 08:00 | NUR ---
patient is in the bed resting. she states she is super tired and doesn't want to get up for breakfast. call light with in reach. no further needs at this time.
--- NOTE | 2021-03-26 09:00 | NUR ---
Scheduled medications administered and assessment complete. Pt resting in bed, repositioned to R side with pillows. Wound on coccyx visualized, stage 3 ulcer covered by allevyn, egg crate mattress in place. Pt states "not hungry for breakfast". Coarse lung sounds noted to SYEDA and RL lobes. Occasional cough noted. Pt on room air at this time and 93%. After coughing, pt placed on 2L OM. No further needs, call light in reach.
--- NOTE | 2021-03-26 12:00 | NUR ---
patient is in bed resting. she refused to get up for lunch and to just sit up in the chair. call light within reach. no further needs at this time.
--- NOTE | 2021-03-26 12:30 | NUR ---
Rounded on patient with Dr Sauceda, pt resting in bed and states no needs at this time, wound visualized, allevyn replaced. 2L OM in place.
--- NOTE | 2021-03-26 14:20 | NUR ---
patient in the bed resting. this SALES DEVELOPMENT REPRESENTATIVE asked if the patient wanted to get up. she states she still want to sleep. call light with in reach. no further needs at this time.
--- NOTE | 2021-03-26 15:40 | NUR ---
Scheduled meds administered. Pt resting in bed, would like an ensure milkshake, ordered from kitchen. On room air at this time and 90%, O2 via OM placed before RN away from bedside
--- NOTE | 2021-03-26 16:56 | NUR ---
Ensure milkshake provided, pt refuses any other food at this time, does not want to have HOB elevated, this RN insists while drinking. Pt has occasional harsh and productive cough.
--- NOTE | 2021-03-26 18:55 | NUR ---
SHIFT REPORT RECEIVED FROM DAYSCOFT MISTY VELAZQUEZ AT BEDSIDE. pt AWAKE AND RESTING IN BED, 2LM IN PLACE, RR EVEN AND UNLABORED. NO DISTRESS NOTED. BED ALARM ON FOR SAFETY AND CALL LIGHT IN REACH. NO NEEDS VERBALIZED AT THIS TIME.
--- NOTE | 2021-03-26 21:11 | NUR ---
in to get vitals, gao emptied, cath care done, pt assisted with boosting self in bed, no further needs at this time, rn aware of pt gao amt
--- NOTE | 2021-03-26 21:30 | NUR ---
ASSESSMENT COMPLETE, pt AWAKE AND RESTING IN BED. INTERMITTENTLY REMOVES OM FROM FACE, A/O TO ALL BUT TIME. EASILY REORIENTS, FORGETFUL BED ALARM ON FOR SAFETY. ALLEVYN TO COCCYX C/D/I, UNABLE TO VISUALIZE D.T CURRENT DRESSING WILL MONITOR. PER SHIFT REPORT, WOUND TO COCCYX DOES NOT REQUIRE DEBRIDEMENT. WILL REQUIRE OUTPATIENT FOLLOWUP. IV SITE WNL, BRISK BLOOD RETURN NOTED. SALINE LOCKED. FRESH ICE WATER PROVIDED. SPO2 WNL ON 2LOM. CALL LIGHT IN REACH.
--- NOTE | 2021-03-26 23:40 | NUR ---
SCHEDULED MYSOLINE AVAILABLE AND GIVEN AT THIS TIME. PILLOW REMOVED FROM RIGHT HIP AT THIS TIME. NO FURTHER NEEDS, CALL LIGHT IN REACH. BED ALARM REMAINS ON.
--- NOTE | 2021-03-27 00:53 | NUR ---
SCHEDULED ADVIL GIVEN FOR PAIN IN HEADACHE, SEE EMAR. NO FURTHER NEEDS, CALL LIGHT IN REACH. BED ALARM REMAINS ON FOR SAFETY.
--- NOTE | 2021-03-27 01:30 | NUR ---
in to get pt repostition in bed, pillow to the right side, pt assisting with pulling self up in bed, no further needs
--- NOTE | 2021-03-27 03:40 | NUR ---
ROUNDED ON pt, pt HAD 2LOM OFF OF FACE, 88%SPO2 ON RA. 2LOM REPLACED, SPO2 QUICKLY RETURNED WNL, SUSTAINING NOW IN MID TO UPPER 90'S. CALL LIGHT IN REACH AND BED ALARM ON.
--- NOTE | 2021-03-27 04:05 | NUR ---
ASSESSMENT COMPLETE, NO ACUTE CHANGES. 2LOM REMAINS ON FACE. BILATERAL HIPS FLOATED, BED ALARM REMAINS ON FOR SAFETY. CALL LIGHT IN REACH. FRESH ICE PROVIDED. NO FURTHER NEEDS, NO PAIN VERBALIZED.
--- NOTE | 2021-03-27 06:33 | NUR ---
pt REPOSITIONED IN BED, PILLOW REMOVED FROM RIGHT HIP BUT REMAINS UNDER LEFT HIP. BED ALARM REMAINS ON. 1.5-2LOM REMAINS IN PLACE. SPO2 LOW 90'S. RR EVEN AND UNLABORED. NO ADDITIONAL NEEDS VERBALIZED. CALL LIGHT IN REACH.
--- NOTE | 2021-03-27 07:20 | NUR ---
Report received from Mar JAY. Pt resting in bed, eyes closed, even and unlabored respirations. No needs identified at this time, call light in reach. Will continue plan of care
--- NOTE | 2021-03-27 08:05 | NUR ---
this ETL LEAD asked patient if she wanted to get up for breakfast. the patient refused and said she wants to sleep. call light with in reach. no further needs at this time.
--- NOTE | 2021-03-27 09:25 | NUR ---
pateint has refused to get up for breakfast she states she want to sleep still. call light with in reach. room tidied. vitals done. no futher needs at this time.
--- NOTE | 2021-03-27 09:45 | NUR ---
Scheduled medications administered, assessment complete. Pt drowsy and refuses moving to the chair at this time. 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 Pt refuses breakfast, accepts ensure. On 2L OM while sleeping. Lung sounds coarse, unchanged from previous assessment. Wound on coccyx covered with allevyn, pt repositioned with pillows. Call light in reach.
--- NOTE | 2021-03-27 12:00 | NUR ---
Pt receives neb tx, states no other needs at this time, on room air. Repositioned in bed, allevyn in place to coccyx
--- NOTE | 2021-03-27 15:30 | NUR ---
Scheduled medications administered, pt assisted to shower with 2PA and rolling shower chair. Able to stand and pivot to shower chair. Pt tolerates well. Linens and gown changed.
--- NOTE | 2021-03-27 17:15 | NUR ---
Rounded on patient, receives ensure milkshake with peanut butter, pt refuses other foods at this time. Remains on room air. Repositioned in bed with pillows.
--- NOTE | 2021-03-27 18:55 | NUR ---
pt RESTING IN BED, RR EVEN AND UNLABORED. pt ON RA, NO DISTRESS NOTED. pt ABLE TO TURN SELF IN BED, BED ALARM ON. CALL LIGHT IN REACH.
--- NOTE | 2021-03-27 22:15 | NUR ---
ASSESSMENT COMPLETE, SCHEDULED MEDS GIVEN (SEE EMAR). pt RESTING IN BED, ON RA. SPO2 93%, WILL MONITOR. IV SITE WNL, DRESSING C/D/I. BRISK BLOOD RETURN NOTED. NEW DRESSING TO COCCYX IN PLACE, DATED. COCCYX WOUND UNCHANGED FROM PHOTOS IN CHART. BILAT HIPS FLOATED. FRESH ICE AND APPLE JUICE AT BEDSIDE. NO FURTHER NEEDS, CALL LIGHT IN REACH.
--- NOTE | 2021-03-28 00:18 | NUR ---
REPOSITIONED TO RIGHT SIDE. pt RESTING IN BED WITH EYES CLOSED, RESPIRATIONS REGULAR AND UNLABORED. CALL LIGHT WITHIN REACH.
--- NOTE | 2021-03-28 01:44 | NUR ---
pt CONTINUES TO REST IN BED WITH EYES CLOSED, RR EVEN AND UNLABORED. NO DISTRESS NOTED. CALL LIGHT IN REACH.
--- NOTE | 2021-03-28 02:30 | NUR ---
pt REPOSITIONED IN BED, NOW LAYING ON HER LEFT SIDE. SPO2 LOW 90'S ON RAAbiola RAMON REMAINS PATENT, CALL LIGHT IN REACH AND BED ALARM ON.
--- NOTE | 2021-03-28 03:10 | NUR ---
RAMON MANIPULATED, INCREASED OUTPUT NOTED. WILL MONITOR. SPO2 88-89%, 1LOM IN PLACE. SPO2 SUSTAINING IN MID 90'S. FRESH ICE PROVIDED, NO FURTHER NEEDS. BED ALARM ON AND CALL LIGHT IN REACH.
--- NOTE | 2021-03-28 04:35 | NUR ---
pt REPOSITIONED IN BED, BILAT HIPS FLOATED. ASSESSMENT COMPLETE, NO NEW CHANGES. RAMON PATENT, VSS. I&O'S COMPLETE. BED ALARM ON. CALL LIGHT IN REACH AND WARM BLANKET PROVIDED.
--- NOTE | 2021-03-28 05:45 | NUR ---
LAST KNOWN BM WAS 03/23. pt WAS STARTED ON PO SENNA AND PO MIRALAX RECENTLY ON DAYSHI. DISCUSSED WITH LEVERS LACE MACHINE OPERATOR BAILEY, WILL HOLD ON ADVANCING TO NEXT MEDS IN NIO BOWEL MEDS AND SEE IF BM HAPPENS ON .
--- NOTE | 2021-03-28 07:05 | NUR ---
Report received from Mar JAY. Pt resting in bed with eyes closed, 1L OM in place as per report pt spo2 89% during spot check last night. Even and unlabored respirations, no apparent needs at this time. Will continue plan of care.
--- NOTE | 2021-03-28 08:45 | NUR ---
Ducolax suppository administered along with scheduled meds. Pt is resting in bed, is able to turn self side to side and pull self up in bed. She is on room air at this time with SPO2 94%.VSS, I/Os complete, gao draining WNL. Pt hair combed and braided. No further needs. Call light within reach. Pt's sister at bedside.
--- NOTE | 2021-03-28 09:10 | NUR ---
Spoke with Jeni and she wants to go home today. Per [address] Ramos pt will be able to dc today. She will need an 02 qualifier. Texted Mark at [facility] and she confirmed pt may return today. They would like 02 set up first. Updated we will send with a larger tank, but will make sure [facility] will arrive with in the needed time. [facility]. Received qualifier and pt will need 2-3L. Faxed chart to [facility] and called. They will be able to have 02 in [place] in approximately 2 hours. Called and scheduled wc van transport for 1:30 and asked Mark to put pts wc out for wc van to pickup.
[2021-03-28] MEDS ORDERED: LEVETIRACETAM1000 MG PO (09:52)
[2021-03-28] MEDS ORDERED: PREDNISONE20 MG PO (09:57)
--- NOTE | 2021-03-28 10:15 | NUR ---
Rounded on patient who is resting in bed watching tv. She states has no needs, is on room air at this time. Call light in reach.
--- NOTE | 2021-03-28 12:10 | NUR ---
Spoke with Dr. Ramos and pt is ready for dc on his end. NOtified Rn. pt can leave with one of the larger tanks from [facility]. Tony howard will be here at 1330.
--- NOTE | 2021-03-28 12:17 | NUR ---
Rounded on patient resting in bed, awake, alert and oriented to self, place, situation. She states no needs, milkshake with ensure provided for lunch. No other needs at this time.
--- NOTE | 2021-03-28 13:30 | NUR ---
Pt [facility]. Pt has all belongings, in stable condition. IV Dc'd WNL. VSS, A+O.
== END 2021-03-28 13:30 | disposition home or self-care (01) | DRG 291 ==
LOC: ED 13:47 → CCU 15:53 → MS 03-24 11:50
PROVIDERS: ADMIT Internal Medicine; ATTEND Internal Medicine
PROC: 5A09357 Assistance with Respiratory Ventilation, Less than 24 Consecutive Hours, Continuous Positive Airway Pressure (ICD-10-PCS; principal; 2021-03-23)
DX: I50.33 Acute on chronic diastolic (congestive) heart failure (principal); J96.21 Acute and chronic respiratory failure with hypoxia; J44.1 Chronic obstructive pulmonary disease with (acute) exacerbation; Z20.822 Contact with and (suspected) exposure to COVID-19; G40.909 Epilepsy, unspecified, not intractable, without status epilepticus; I48.0 Paroxysmal atrial fibrillation; K21.9 Gastro-esophageal reflux disease without esophagitis; Z66 Do not resuscitate; F17.210 Nicotine dependence, cigarettes, uncomplicated; F32.A Depression, unspecified; Z86.73 Personal history of transient ischemic attack (TIA), and cerebral infarction without residual deficits; Z87.440 Personal history of urinary (tract) infections; Z90.49 Acquired absence of other specified parts of digestive tract; Z98.890 Other specified postprocedural states; Z88.6 Allergy status to analgesic agent; Z88.8 Allergy status to other drugs, medicaments and biological substances; Z79.899 Other long term (current) drug therapy
CPT/HCPCS: 36600; 71045; 80053; 82803; 83880; 85025; 93005; 93010; 93306; 94640; 94660; 94667; 94668; 94760; 94761; 96374; 97110; 97163; 97530; 99285-25; A9270; C9113; C9803; J0456; J1650; J1940; J1953; J2060; J2920; J2930; J7050; J7512; U0003

== ENCOUNTER 2021-04-25 13:53 | Emergency (ER) | payer MEDICARE, OTHER ==
[~2021-04-25] VITALS: Ht 160 cm; Wt 45.8 kg
[~2021-04-25 13:53] MED LIST changes: +DULCOLAX10 MG PR; +SERTRALINE HCL50 MG PO
--- OUTSIDE RECORDS SUMMARY | 2021-04-25 14:00 | XMS ---
PreManage Notification: ROE DURAN Security Condenser Tester Events No recent Security Events currently on file CRITERIA MET - [facility] - Has Care Guidelines - Group Notification CARE PROVIDERS Delio Cortés DO [facility] Current PHONE: Unknown LUCIANA LINDO [facility] 03/23/2021-Current PHONE: [phone] Daniel Barrientos [facility] Clinical Marketer/Stringing Machine Operator 03/19/2021-Current PHONE: [phone] Gonzalo has no Care Guidelines for this patient. Care History Medical/Surgical 03/23/2021 [facility] Patient was seen by Dr. Lindo on 03/15/2021 and has follow up on 03/24/2021 03/23/2021 [facility] - Patient is currently established with [facility]. If patient is seen in the ED during business hours. Please contact CHWs at [facility]. - Care Recommendation: If this [...] exercise clinical judgment when providing care. 08/26/2019 [facility] Patient has follow up appointment with Dr. Gruber on 09/02/2019. E.D. VISIT COUNT (12 MO.) 5 [facility]. TOTAL 5 NOTE: Visits indicate total known visits. ED/UCC VISIT TRACKING (12 MO.) 04/25/2021 13:53 [facility] TYPE: Emergency COMPLAINT: - SKIN PROBLEM 03/23/2021 13:48 [facility] TYPE: Emergency COMPLAINT: - SEIZURE 03/23/2021 00:00 [facility] TYPE: Emergency COMPLAINT: - SOB 03/22/2021 11:06 [facility] TYPE: Emergency COMPLAINT: - RECTAL PROBLEM DIAGNOSES: - Gastro-esophageal reflux disease without esophagitis - Essential (primary) hypertension - Hemorrhage of anus and rectum - Anemia, unspecified - Unspecified atrial fibrillation - Other safe deposit attendant (current) drug therapy - Allergy status to other drugs, medicaments and biological substances - care home (current) use of anticoagulants - Chronic obstructive pulmonary disease with (acute) exacerbation - Acquired absence of other specified parts of digestive tract - Nicotine dependence, unspecified, uncomplicated - Allergy status to narcotic agent 03/18/2021 02:59 [facility] TYPE: Emergency COMPLAINT: - SKIN PROBLEM INPATIENT VISIT TRACKING (12 MO.) 03/23/2021 15:53 [facility] TYPE: Medical Surgical COMPLAINT: - SEIZURE, RESPIRATORY FAILURE DIAGNOSES: - Acquired absence of other specified parts of digestive tract - Do not resuscitate - Nicotine dependence, cigarettes, uncomplicated - Other safe deposit attendant (current) drug therapy - Epilepsy, unspecified, not intractable, without status epilepticus - Paroxysmal atrial fibrillation - Acute on chronic diastolic (congestive) heart failure - Acute and chronic respiratory failure with hypoxia - Gastro-esophageal reflux disease without esophagitis - Epilepsy, unspecified, not intractable, without status epilepticus - Paroxysmal atrial fibrillation - Chronic obstructive pulmonary disease with (acute) exacerbation - Allergy status to analgesic agent - Nicotine dependence, cigarettes, uncomplicated - Allergy status to other drugs, medicaments and biological substances - Other [place] [facility] (current) drug therapy - Other specified postprocedural states - DEPRESSION, UNSPECIFIED - Allergy status to analgesic agent - Do not resuscitate - DEPRESSION, UNSPECIFIED - Personal history of transient ischemic attack (TIA), and cerebral infarction without residual deficits - Chronic obstructive pulmonary disease with (acute) exacerbation - Personal history of transient ischemic attack (TIA), and cerebral infarction without residual deficits - Acquired absence of other specified parts of digestive tract - Personal history of urinary (tract) infections - Allergy status to other drugs, medicaments and biological substances - Acute on chronic diastolic (congestive) heart failure - Personal history of urinary (tract) infections - Other specified postprocedural states - Gastro-esophageal reflux disease without esophagitis 03/18/2021 07:10 [facility] TYPE: Medical Surgical COMPLAINT: - RSV PNEUMONIA, HYPOTENSION DIAGNOSES: - Hypomagnesemia - Allergy status to analgesic agent - Constipation, unspecified - Other [place] [facility] (current) drug therapy - Pressure ulcer of sacral region, unspecified stage - Personal history of urinary (tract) infections - Chronic obstructive pulmonary disease with (acute) lower respiratory infection - Acquired absence of other specified parts of digestive tract - Hypotension, unspecified - Unspecified convulsions - Acquired absence of other specified parts of digestive tract - Nicotine dependence, cigarettes, uncomplicated - DEPRESSION, UNSPECIFIED - Anemia, unspecified - Other [place] [facility] (current) drug therapy - Gastro-esophageal reflux disease without esophagitis - Allergy status to other drugs, medicaments and biological substances - Neuromuscular dysfunction of bladder, unspecified - Pressure ulcer of sacral region, unspecified stage - Gastro-esophageal reflux disease without esophagitis - Essential (primary) hypertension - Unspecified convulsions - Chronic obstructive pulmonary disease with (acute) lower respiratory infection - Body mass index [BMI] 19.9 or less, adult - Other disorders of phosphorus metabolism - Allergy status to analgesic agent - Hypotension, unspecified - Other specified postprocedural states - door furring installer (current) use of anticoagulants - Other dental procedure status - Respiratory syncytial virus pneumonia - Body mass index [BMI] 19.9 or less, adult - care home (current) use of anticoagulants - Unspecified atrial fibrillation - Personal history of transient ischemic attack (TIA), and cerebral infarction without residual deficits - Acute kidney failure, unspecified - Unspecified severe protein-calorie malnutrition - Nicotine dependence, cigarettes, uncomplicated - Other specified postprocedural states - Personal history of transient ischemic attack (TIA), and cerebral infarction without residual deficits - Do not resuscitate - Unspecified severe protein-calorie malnutrition - Neuromuscular dysfunction of bladder, unspecified - Essential (primary) hypertension - DEPRESSION, UNSPECIFIED - Allergy status to other drugs, medicaments and biological substances - Chronic obstructive pulmonary disease with (acute) exacerbation - Unspecified atrial fibrillation - Anemia, unspecified - Constipation, unspecified - Hypomagnesemia - Other disorders of phosphorus metabolism - Personal history of urinary (tract) infections - Other dental procedure status - Acute kidney failure, unspecified - Do not resuscitate - Cachexia - Cachexia [email or web address]
[2021-04-25] MEDS ORDERED: PRISTIQ ER25 MG PO (14:22)
[2021-04-25] MEDS ORDERED: CEPHALEXIN500 M1 PO (17:29)
== END 2021-04-25 18:36 | disposition home or self-care (01) ==
LOC: ED 13:53
DX: L03.115 Cellulitis of right lower limb (principal); J44.9 Chronic obstructive pulmonary disease, unspecified; I10 Essential (primary) hypertension; D64.9 Anemia, unspecified; I48.91 Unspecified atrial fibrillation; K21.9 Gastro-esophageal reflux disease without esophagitis; F17.200 Nicotine dependence, unspecified, uncomplicated; Z88.5 Allergy status to narcotic agent; Z88.8 Allergy status to other drugs, medicaments and biological substances; Z88.6 Allergy status to analgesic agent; Z79.899 Other long term (current) drug therapy; Z79.01 Long term (current) use of anticoagulants
CPT/HCPCS: 36415; 80048; 85025; 96374; 99283-25; J0696

== ENCOUNTER 2021-05-16 10:50 | Emergency (ER) | payer MEDICARE, OTHER ==
[~2021-05-16] VITALS: Ht 160 cm; Wt 45.8 kg
[~2021-05-16 10:50] MED LIST changes: +CEPHALEXIN500 M1 PO; +PRISTIQ ER25 MG PO
--- OUTSIDE RECORDS SUMMARY | 2021-05-16 10:58 | XMS ---
PreManage Notification: ROE DURAN Security Registered Nurse Float Pool Events No recent Security Events currently on file CRITERIA MET - [facility] - 2 Visits in 30 Days - Group Notification - 6 ED Visits in 6 Months - [facility] - Has Care Guidelines CARE PROVIDERS Delio Cortés DO [facility] Current PHONE: Unknown LUCIANA LINDO [facility] 03/23/2021-Current PHONE: [phone] Daniel Barrientos Yarn Texture Machine Operator/Lifestyle Director 03/19/2021-Current PHONE: [phone] Gonzalo has no Care Guidelines for this patient. Care History Medical/Surgical 03/23/[address] [facility] Patient was seen by Dr. Lindo on 03/15/2021 and has follow up on 03/24/2021 03/23/2021 [facility] - Patient is currently established [...] clinical judgment when providing care. 08/26/2019 [facility] Patient has follow up appointment with Dr. Gruber on 09/02/2019. Trudi VISIT COUNT (12 MO.) 6 [facility]. TOTAL 6 NOTE: Visits indicate total known visits. ED/UCC VISIT TRACKING (12 MO.) 05/16/2021 10:51 [facility] TYPE: Emergency COMPLAINT: - SKIN PROBLEM 04/25/2021 13:53 [facility] TYPE: Emergency COMPLAINT: - SKIN PROBLEM DIAGNOSES: - Essential (primary) hypertension - Allergy status to narcotic agent - Cellulitis of right lower limb - Other specified soft tissue disorders - Nicotine dependence, unspecified, uncomplicated - Allergy status to other drugs, medicaments and biological substances - Other intermediate project manager (current) drug therapy - Unspecified atrial fibrillation - Gastro-esophageal reflux disease without esophagitis - Allergy status to analgesic agent - Anemia, unspecified - continuous churn 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 (current) 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 of anticoagulants - Chronic obstructive pulmonary disease, unspecified 03/23/2021 13:48 [facility] TYPE: Emergency COMPLAINT: - SEIZURE 03/23/2021 00:00 [facility] TYPE: Emergency COMPLAINT: - SOB 03/22/2021 11:06 [facility] TYPE: Emergency COMPLAINT: - RECTAL PROBLEM DIAGNOSES: - Gastro-esophageal reflux disease without esophagitis - Essential (primary) hypertension - Hemorrhage of anus and rectum - Anemia, unspecified - Unspecified atrial fibrillation - Other [facility] (current) drug therapy - Allergy status to other drugs, medicaments and biological substances - assisted (current) use of anticoagulants - Chronic obstructive [...] - Nicotine dependence, cigarettes, uncomplicated - Other [facility] (current) drug therapy - Epilepsy, unspecified, not [...] drugs, medicaments and biological substances - Other intermediate project manager (current) drug therapy - Other specified postprocedural [...] analgesic agent - Constipation, unspecified - Other [facility] (current) drug therapy - Pressure ulcer of [...] DEPRESSION, UNSPECIFIED - Anemia, unspecified - Other intermediate project manager (current) drug therapy - Gastro-esophageal reflux disease [...] unspecified - Other specified postprocedural states - assisted (current) use of anticoagulants - Other dental procedure status - Respiratory syncytial virus pneumonia - Body mass index [BMI] 19.9 or less, adult - assisted (current) use of anticoagulants - Unspecified atrial [...] Do not resuscitate - Cachexia - Cachexia [email or web address]
--- NOTE | 2021-05-16 15:35 | NUR ---
LE 1500 TC FROM ER TO COME BACK AND SEE PT FOR DRSG CHANGE. DR LIM SAW PT AND WILL SEE HER IN OFFICE NEXT WEEK. CLEANED WOUNDS WITH WOUND CLEANSER AND DRIED WITH GUAZE. PLACED MEDIHONEY OVER WOUND SITES AND COVERED WITH ALLEVYN DRSG. SPOKE WITH PT/SISTER ABOUT STAYING OFF BUTTOCKS AND HAVING DRSG CHANGED EVERY 2-3 DAYS. 1530 LEFT ER AND CALLED [facility] WITH UPDATE ON PT'S CONDITION.
--- NOTE | 2021-05-16 16:43 | CONS ---
[facility] [address], [place] [address] Signed DATE OF CONSULTATION: 05/16/2021 CHIEF COMPLAINT: Gluteal pain over chronic pressure injuries. HISTORY OF PRESENT ILLNESS: Jeni is a 60-year-old female, who is not paralyzed but has not walked for years. She is quite thin and cachectic. She now resides at a local extended care facility. She generally uses a wheelchair to get around. 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 She was complaining of pain in that area earlier today, so they brought her to the local emergency room for evaluation. Wound care nurse had seen it and thought it would be best if one of the surgeons see it before she goes back to for healing. I have known Jeni previously as well as her sister. Her sister is with her currently. PAST MEDICAL HISTORY: Neurologic disease, stroke, COPD, depression, edema, hypertension, constipation, anemia, urinary tract infections, atrial fibrillation, tobacco abuse, esophageal dysphagia, convulsions, gastroesophageal reflux disease, meningitis, chronic Murphy use, and neurogenic bladder. PAST SURGICAL HISTORY: Includes all teeth have been extracted, appendectomy and laparotomy for some time of infection. SOCIAL HISTORY: She resides at local extended care facility. She continues to smoke. ALLERGIES: Tylenol, hydrocodone, hydrocortisone, meperidine. MEDICATIONS: Include: 1. Levetiracetam. 2. Albuterol. 3. Cephalexin. 4. Omeprazole. 5. Loperamide. 6. Primidone. 7. . 8. Vitamin D. 9. Senna S. 10. Eliquis. Electronically Signed By: MARTINA LIM MD 05/16/21 1643 PATIENT NAME: JENI DURAN CONSULTATION DATE OF : 62 REPORT #: [id number] PHYSICIAN: MARTINA LIM MD PCP: LUCIANA GERMAN MD REPORT IS CONFIDENTIAL AND NOT TO BE RELEASED WITHOUT AUTHORIZATION [facility] [address], [place] [address] Signed 11. Sertraline. 12. Metoprolol. 13. Phenytoin. 14. Ibuprofen. 15. Benzonatate. 16. Bisacodyl. 17. Magnesium hydroxide. 18. Pristiq. PHYSICAL EXAMINATION: VITAL SIGNS: Her blood pressure is 103/70, heart rate is 79, respiratory rate is 22, temperature is 98.0, O2 sats between 91% and 98%. GENERAL: Jeni is a 60-year-old female, who appears much older than her stated age. She is quite thin and cachectic, although she is always pleasant. Her sister is with her. We had her roll up onto the left lateral decubitus position and remove the overlying DuoDerm. 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 There is some granulation tissue, but it is completely clean. There is no necrotic tissue. There is no pus. There is no surrounding cellulitis. Similarly, she has an area over the right ischium where the skin in the center probably a cm wide by 3 cm in length more than likely is close to completely , although it is still intact. She claims she can feel the needle pass through this area. We used an 18-gauge needle we cannot feel any pus underneath, I cannot feel any pus underneath. There is no surrounding cellulitis, of course she is a little tender but otherwise tolerated the exam well. She told me her weight is 101 pounds. LABORATORY DATA: Labs none. X-rays none. ASSESSMENT AND PLAN: Jeni is a 60-year-old female who is quite thin and cachectic and obviously lays in bed all day and therefore has chronic pressure injuries. We cannot appreciate any acute changes such as cellulitis or pus that needs to be addressed at the moment or needs admission. We are going to allow her to continue the DuoDerm back at her long term as she has been. She told me her main goal was to have some pain medications so she can get out of pain. That is going to be difficult as she will always have chronic inflammatory changes around the ischium and her coccyx. We are going to have her follow up in my office in a week or so, we will see how she is doing. She has been working closely with her primary care provider for physical therapy as well as wound care. She should also do her best to eliminate pressure in the area such as a doughnut. I reviewed this with Jeni and her sister. They have expressed understanding and agreed with the above plan. Electronically Signed By: MARTINA LIM MD 05/16/21 9579 PATIENT NAME: JENI DURAN CONSULTATION DATE OF : 62 REPORT #: [id number] PHYSICIAN: MARTINA LIM MD PCP: LUCIANA GERMAN MD REPORT IS CONFIDENTIAL AND NOT TO BE RELEASED WITHOUT AUTHORIZATION [address] [address] Signed Martina Lim MD ALB/MODL /[id number] cc: MD Luciana Burch MD Copies: MARTINA LIM MD ~ Electronically Signed By: MARTINA LIM MD 05/16/21 1643 PATIENT NAME: JENI DURAN CONSULTATION DATE OF : 62 REPORT #: [id number] PHYSICIAN: MARTINA LIM MD PCP: LUCIANA GERMAN MD REPORT IS CONFIDENTIAL AND NOT TO BE RELEASED WITHOUT AUTHORIZATION
== END 2021-05-16 16:12 | disposition home or self-care (01) ==
LOC: ED 10:50
DX: L89.899 Pressure ulcer of other site, unspecified stage (principal); J44.9 Chronic obstructive pulmonary disease, unspecified; I10 Essential (primary) hypertension; D64.9 Anemia, unspecified; I48.91 Unspecified atrial fibrillation; K21.9 Gastro-esophageal reflux disease without esophagitis; F17.200 Nicotine dependence, unspecified, uncomplicated; Z88.5 Allergy status to narcotic agent; Z88.8 Allergy status to other drugs, medicaments and biological substances; Z79.899 Other long term (current) drug therapy; Z79.01 Long term (current) use of anticoagulants
CPT/HCPCS: 99283; C9803

== ENCOUNTER 2021-05-23 10:57 | Inpatient (IN) | payer MEDICARE, OTHER ==
[~2021-05-23] VITALS: Ht 160 cm; Wt 37.3 kg
[~2021-05-23 10:57] MED LIST changes: +IBU600 MG PO
--- OUTSIDE RECORDS SUMMARY | 2021-05-23 11:00 | XMS ---
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 Care History Medical/Surgical 03/23/2021 [facility] Patient was seen by Dr. Lindo on 03/15/2021 and has follow up on 03/24/2021 03/23/2021 [facility] - Patient is currently established with [facility]. If patient is seen in the ED during business hours. Please contact CHWs at [facility]. - Care Recommendation: If this patient [...] clinical judgment when providing care. 08/26/2019 [facility] Patient has follow up appointment with Dr. Gruber on 09/02/2019. Trudi VISIT COUNT (12 MO.) 7 [facility]. TOTAL 7 NOTE: Visits indicate total known visits. ED/UCC VISIT TRACKING (12 MO.) 05/23/2021 10:58 [facility] TYPE: Emergency COMPLAINT: - BED SORE 05/16/2021 10:51 [facility] TYPE: Emergency COMPLAINT: - SKIN PROBLEM DIAGNOSES: - Allergy status to narcotic agent - Essential (primary) hypertension - Chronic obstructive pulmonary disease, unspecified - Anemia, unspecified - Gastro-esophageal reflux disease without esophagitis - Other ferry terminal agent (current) drug therapy - Unspecified atrial fibrillation - Allergy status to other drugs, medicaments and biological substances - intermediate frame tender (current) use of anticoagulants - Other specified disorders of the skin and subcutaneous tissue - Nicotine dependence, unspecified, uncomplicated - Pressure ulcer of other site, unspecified stage 04/25/2021 13:53 [facility] TYPE: Emergency COMPLAINT: - SKIN PROBLEM DIAGNOSES: - Essential (primary) hypertension - Allergy status to narcotic agent - Cellulitis of right lower limb - Other specified soft tissue disorders - Nicotine dependence, unspecified, uncomplicated - Allergy status to other drugs, medicaments and biological substances - Other nursing home (current) drug therapy - Unspecified atrial fibrillation - Gastro-esophageal reflux disease without esophagitis - Allergy status to analgesic agent - Anemia, unspecified - USP (current) use of anticoagulants - Chronic obstructive [...] unspecified - Unspecified atrial fibrillation - Other ferry terminal agent (current) drug therapy - Allergy status to other drugs, medicaments and biological substances - intermediate frame tender (current) use of anticoagulants - Chronic obstructive [...] - Nicotine dependence, cigarettes, uncomplicated - Other nursing home (current) drug therapy - Epilepsy, unspecified, not [...] drugs, medicaments and biological substances - Other nursing home (current) drug therapy - Other specified postprocedural [...] Gastro-esophageal reflux disease without esophagitis 03/18/2021 07:[address] [facility] TYPE: Medical Surgical COMPLAINT: - RSV PNEUMONIA, HYPOTENSION DIAGNOSES: - Hypomagnesemia - Allergy status to analgesic agent - Constipation, unspecified - Other ferry terminal agent (current) drug therapy - Pressure ulcer of [...] DEPRESSION, UNSPECIFIED - Anemia, unspecified - Other nursing home (current) drug therapy - Gastro-esophageal reflux disease [...] unspecified - Other specified postprocedural states - USP (current) use of anticoagulants - Other dental procedure status - Respiratory syncytial virus pneumonia - Body mass index [BMI] 19.9 or less, adult - intermediate frame tender (current) use of anticoagulants - Unspecified atrial [...] Do not resuscitate - Cachexia - Cachexia [email or web address]
[2021-05-23] MEDS ORDERED: VITAMIN D21250 MCG PO (15:48)
[2021-05-23] MEDS ORDERED: OXYCODONE HCL5 MG PO (15:52)
[2021-05-23] MEDS ORDERED: DESVENLAFAXINE50 M3 PO (15:53)
[2021-05-23] MEDS ORDERED: VENTOLIN HFA18 GM INH (16:54)
[2021-05-23] MEDS ORDERED: ALBUTEROL0.63 MG/3 INH (16:55)
[2021-05-23] MEDS ORDERED: BENZONATATE100 MG PO (16:56)
[2021-05-23] MEDS ORDERED: PEPTO-BISM525 MG/15 PO (16:59)
--- NOTE | 2021-05-23 17:19 | NUR ---
Medications reconciled using facility MAR and PCP chart notes
--- NOTE | 2021-05-23 17:20 | NUR ---
wound culture completed to the right upper sacral wound, photos take of sacral wounds and right lateral lower leg wound
--- NOTE | 2021-05-23 18:59 | NUR ---
patient refuses nicotine patch, continues to c/o a pain of 10. she is laying on her left side, pillow behind back, and 4 blankets on her.
--- NOTE | 2021-05-23 19:44 | NUR ---
REPORT RECEIVED FROM DAY SHIFT RN. PT LYING IN BED ALERT AND ORIENTED. PROVIDED WITH ICE WATER. ASSISTED TO REPOSITION. WHITE BOARD UPDATED. CALL LIGHT IN REACH.
--- NOTE | 2021-05-23 21:30 | NUR ---
EVENING ASSESSMENT COMPLETE. SCHEDULED MEDS ADMINISTERED PER EMAR. PRN ADMIN FOR 10/10 SACRAL AREA PAIN. IVF INFUSING WNL. RAMON PATENT WITH YELLOW URINE. RAMON CARE DONE. PT REPOSITIONED IN BED. DRESSING TO SACRUM INTACT WITH SCANT AMOUNT SHADOWING. FRESH WATER PROVIDED. VS AND I&O COMPLETE. SpO2 NOTED TO BE 86-87% ON RA. 2L/NC PLACED. SpO2 UP TO 94%. PT DENIES QUESTIONS OR CONCERNS. CALL LIGHT IN REACH.
--- NOTE | 2021-05-23 23:06 | NUR ---
CALL LIGHT ANSWERED. PT REPORTS 10/10 SACRAL AREA PAIN FROM PRESSURE SORE. NO PRN'S AVAILABLE. DR. LIM NOTIFIED. NEW TELEPHONE ORDERS RECEIVED VERIFIED WITH READ BACK METHOD. PRN ADMIN PER ORDER. ASSISTED PT TO REPOSITION IN BED. NO FURTHER NEEDS.
--- NOTE | 2021-05-24 00:15 | NUR ---
PT AWAKE IN BED. ABLE TO REPOSITION SELF TO RIGHT SIDE. REPORTS SACRAL PAIN 09/25. PRN ADMIN FOR PAIN PER EMAR. FRESH WATER PROVIDED. PT DENIES FURTHER NEEDS.
--- NOTE | 2021-05-24 02:05 | NUR ---
CALL LIGHT ANSWERED. KLEENEX PROVIDED. NO OTHER NEEDS AT THIS TIME.
--- NOTE | 2021-05-24 02:21 | NUR ---
VS AND I&O COMPLETE. PT BP NOTED TO BE 70'S OVER 40'S. PT ASYMPTOMATIC. REPORTS SHE "RUNS LOW" AT HOME. REVIEW OF BP FROM FEB 2021 AND MAR 2021 SHOW PT TO HAVE SIMILAR BLOOD PRESSURES. DISCUSSED WITH HEALTH INFORMATION TECHNICIAN. WILL CONTINUE TO ASSESS PT AND NOTIFIY MD IN AM OF BLOOD PRESSURES.
--- NOTE | 2021-05-24 04:07 | NUR ---
ASSISTED PT TO REPOSITION TO RIGHT SIDE. PRN FOR 7/10 SACRAL PAIN ADMIN PER EMAR. FRESH WATER PROVIDED. ASSESSMENT COMPLETE. BED ALARM FOR SAFETY. CALL LIGHT IN REACH.
--- NOTE | 2021-05-24 06:05 | CONS ---
[facility] [address], [place] [address] Signed DATE OF CONSULTATION: 05/23/2021 CHIEF COMPLAINT: Sacral pain. HISTORY OF PRESENT ILLNESS: Jeni is a 60-year-old female, who is tremendously disabled and quite cachectic. She has been residing at a local extended care facility. Apparently, she is very well-known to our medical staff and our nursing staff. She is known to have a chronic sacral open pressure injury. She has developed some breakdown of her skin over the right ischium as well. She was here last week with some concerns from her wound care nurse that she needed to be more closely evaluated. I had seen her in the emergency room and really found nothing to drain whatsoever. We had sent her back to her care home with hopes that she would follow up later that week in my office. She was actually scheduled to see me today. The wound care nurse apparently sent her back to the emergency room. She has been evaluated by the ER doctor, who really cannot seem to find anything that is changed from last week. In fact, her white count remains normal. We decided we would admit her on this occasion. She told me today that she feels the same and other little pain in her sacrum, she really feels like she is at her baseline. PAST MEDICAL HISTORY: Stroke, COPD, depression, edema, hypertension, constipation, anemia, urinary tract infections, atrial fibrillation, dysphagia, convulsions, gastroesophageal reflux disease, meningitis, neurogenic bladder. PAST SURGICAL HISTORY: She is edentulous. She has had an appendectomy and a laparotomy for some type of abdominal infection. SOCIAL HISTORY: She smokes, but did not drink. Dr. Monika Lindo is her primary care provider. She is a DNR/DNI and she confirmed that today she has been [facility]. Donovan Marie is her sister at [phone]. FAMILY HISTORY: None. REVIEW OF SYSTEMS: She had 10 systems reviewed. There is nothing new to add. ALLERGIES: Hydrocodone, Tylenol, hydrocortisone, meperidine. Electronically Signed By: MARTINA LIM MD 05/24/21 0605 PATIENT NAME: JENI DURAN CONSULTATION DATE OF : 62 REPORT #: [id number] PHYSICIAN: MARTINA LIM MD PCP: MONIKA LINDO MD REPORT IS CONFIDENTIAL AND NOT TO BE RELEASED WITHOUT AUTHORIZATION [facility] [address], [place] [address] Signed MEDICATIONS: Albuterol, levetiracetam, Prilosec, loperamide, primidone, Senna-S, Eliquis, metoprolol, phenytoin, ibuprofen, Dulcolax, and milk of magnesia. PHYSICAL EXAMINATION: VITAL SIGNS: Her blood pressure is 131/85, heart rate 86, respiratory rate is 17, temperature is 97.8, she is 92% to 100% on room air. She is 5 feet 3 inches at 37 kg. GENERAL: Jeni is a 60-year-old female, who appears much older than her stated age. She is quite cachectic. She is alert, awake, and interactive. She does not appear systemically ill or toxic. She has no teeth. LUNGS: Generally clear to auscultation bilaterally. HEART: It appears that her heart is regular rate and rhythm. ABDOMEN: Soft and flat. With the help of our nurse, we took off her dressing and we could see the chronic open sacral pressure injury that is no different than what it was last week. I can easily insert my index finger superiorly 5 to 6 cm. Again, there are no pockets. There are no loculations. There is no pus. There is no drainage, but of course it does have a bit of odor to it. The bone is exposed as well and then over the right ischium, there is another pressure injury that is developing and the skin has broke down, but again there is nothing that I can feel or palpate underneath that area. In the emergency room last week, I inserted an 18-gauge needle and found nothing in that area. She also has another small pressure injury on her leg from what she said was a wheelchair. We took that dressing off and it appears to be quite clean as well. She has chronic venous stasis disease in her legs. LABORATORY DATA: Her white blood cell count 8.2, hemoglobin 13, neutrophils 77. Potassium 3.4, BUN 25, creatinine 0.74, glucose 81, alkaline phosphatase a little up at 179, albumin is 2.8. RADIOGRAPHIC STUDIES: A CT scan of abdomen and pelvis was performed by the ER physician. No surprise that she has an open sacral pressure injury with some gas underneath the skin as described above. She has osteomyelitis at S4 and probably S3. One could see a pressure injury starting over both the ischial tuberosities, the right seems to be a little worse than the left. She has a Murphy catheter in place. ASSESSMENT AND PLAN: Jeni is a 60-year-old female, who presents as above. She clearly has chronic pressure injuries associated with some osteomyelitis, appears to be nothing to drain or debride at this time. Not sure, however, we are going to be able to help this lady to any significant degree [facility]. I will be talking with her sister later. In the meantime, she wants to maintain herself as a DNR/DNI. Today as she did in the ER, she has simply asked for some pain medications. Electronically Signed By: MARTINA LIM MD 05/24/21 0605 PATIENT NAME: JENI DURAN CONSULTATION DATE OF : 62 REPORT #: [id number] PHYSICIAN: MARTINA LIM MD PCP: MONIKA LINDO MD REPORT IS CONFIDENTIAL AND NOT TO BE RELEASED WITHOUT AUTHORIZATION [address] [address] Signed MD SILVIA Burch/TAMMY /[id number] cc: MD Martina Ca MD Copies: MARTINA LIM MD ~ Electronically Signed By: MARTINA LIM MD 05/24/21 0605 PATIENT NAME: JENI DURAN CONSULTATION DATE OF : 62 REPORT #: [id number] PHYSICIAN: MARTINA LIM MD PCP: MONIKA LINDO MD REPORT IS CONFIDENTIAL AND NOT TO BE RELEASED WITHOUT AUTHORIZATION
--- NOTE | 2021-05-24 06:47 | NUR ---
DR. LIM AT BEDSIDE. UPDATED ON PT LOWER BLOOD PRESSURES. ORDERS RECEIVED. IVF RATE INCREASED. UA SENT TO LAB. PT ASSISTED TO REPOSITION IN BED. FRESH WATER PROVIDED. PT DENIES FURTHER NEEDS. CALL LIGHT IN REACH. BED ALARM FOR SAFETY.
--- NOTE | 2021-05-24 07:14 | NUR ---
REPORT RECEIVED FROM MISTY SPRINGER. PT RESTING ON LEFT SIDE, SUPPORTED WITH PILLOWS, WITH EYES CLOSED, OCCATIONAL GRIMICING NOTED, BLOOD PRESSURE REMAINS LOW (MD AWARE). HEAD OF BED ELEVATED TO 15 DEGREES. PT ALLOWED TO REST. BED RAILS UP. CALL LIGHT WITHIN REACH.
--- NOTE | 2021-05-24 07:20 | NUR ---
DR. LIM CALLED AND UPDATD ON PTS LABS AND CONDITION. NEW ORDERS GIVEN FOR IV ABX AND DRESSING MONITORING/CHANGES. ORDERS ENTERED.
--- NOTE | 2021-05-24 08:13 | NUR ---
MORNING ASSESSMENT AND MEDICATION DUE. PT RESTING IN BED ON LEFT SIDE, SUPPORTED WITH PILLOWS, WITH EYES CLOSED. PT AWAKENES TO VOICE AND LIGHT TOUCH. PT ORIENTED TO ALL BUT YEAR AND EXACT LOCATION. PT STATES SHE IS AT [facility], I NEVER REMEMBER THE NAME" ONCE PT IS REORIENTED TO LOCATION (HOSPITAL) PT IS ABLE TO REPEAT BACK HER LOCATION AND REASON FOR HOSPITAL STAY. PT REPORTS 0/10 PAIN WHILE RESTING ON LEFT SIDE AND 10/10 PAIN WITH MOVEMENT. CONTINUING TO MONITOR LOC AND BLOOD PRESSURE PRIOR TO ADDIITONAL PAIN MEDICATION ADMINISTRATION. PT REPORTS SHE IS COMFOTABLE ON HER LEFT SIDE A THIS TIME. YACHT MASTER STRENGHT STRONG, PT ABLE TO MOVE LEGS, WEAKNESS NOTED. LUNG SOUNDS CLEAR. PT 100% ON 2L O2 BY NC. PT WEANED TO ROOM AIR AND MAINTAINING OXYGEN SATURATIONS ABOVE 94%. HEART TONES REGULAR. BLOOD PRESSURE REMAINS LOW. CHARGE NURSE CONSULTED, METOPROLOL GIVEN. ALLEVYN REMAINS OVER COCCYX, MODERATLY SATURATED WITH SEROUS DRAINAGE AT THIS TIME, LEFT IN PLACE. ALLEVYN TO LEFT LOWER LEG AND RIGHT HIP REMAIN C/D/I. DRESSINGS LEFT IN PLACE AT THIS TIME PER MD ORDER. [place], CASE MANAGEMENT, TO BEDSIDE TO TALK WITH PT. NO ADDITIONAL REQUESTS OR COMPLAINTS. CALL LIGHT WITHIN REACH. BED RAILS UP.
--- NOTE | 2021-05-24 09:39 | NUR ---
THIS RN TO ROOM TO CHECK ON PT. PT RESTING ON LEFT SIDE, SUPPORTED WITH PILLOWS, EYES CLOSED AND RESPRIATIONS EVEN AND UNLABORED. PT AWAKENS TO MOVEMENT IN THE ROOM. PT DECLINES REPOSTIONING AT THIS TIME STATING "I JUST WANT TO SLEEP." PT REPORTS 0/10 PAIN WHILE RESTING. CALL LIGHT WITHIN REACH. BED RAILS UP. HEAD OF BED ELEVATED TO 15 DEGREES. BED ALARM ON.
--- NOTE | 2021-05-24 10:09 | NUR ---
THIS RN TO ROOM TO CHECK ON PT. PT REPORTS 6/10 PAIN AND REQUESTS PAIN MEDICATION, BLOOD PRESSURE REMAINS LOW. IBUPROFEN GIVEN. NEW IV FLUIDS BAG HUNG. PT AGREES TO REPOSITIONING TO RIGTH SIDE, SUPPORTED WITH PILLOWS. PT CONFUSED AT TIMES, NOT REMEMBERING CONVERSATIONS FROM THIS MORNING. PT REMINDED OF PLAN OF CARE. PT DRIFTS QUICKLY OFF TO SLEEP. NO ADDITIONAL REQUESTS OR COMPLAINTS. CALL LIGHT WITHIN REACH. BED RAILS UP. BED ALARM ON.
--- NOTE | 2021-05-24 11:10 | NUR ---
THIS RN TO ROOM TO CHECK ON PT. PT RESTING ON RIGHT SIDE. PT REPORTS 5/10 PAIN AND WHEN ASKED IF SHE NEEDS ADDITIONAL PAIN MEDICAITON PT STATES "OH, NO, I'M COMFORTABLE." PT DENIES NAUSEA. PT DENIES ADDITIONAL REQUESTS OR COMPLAINTS. CALL LIGHT WITHIN REACH. BED RAILS UP.
--- NOTE | 2021-05-24 11:52 | NUR ---
PTS DAUGHTER, OZZY, ARRIVED TO BEDSIDE, UPDATED ON PT STATUS AND PLAN OF CARE. PT REPORTS "I'M REALLY COMFORTABLE RIGHT NOW." PT DRINKING PEANUT BUTTER MILKSHAKE BROUGHT IN BY DAUGHTER. PT DENIES ADDTIONAL REQUESTS OR COMPLAINTS. OZZY STATES HER QUESTIONS HAVE BEEN ANSWERED. BED RAILS UP. CALL LIGHT WITHIN REACH.
--- NOTE | 2021-05-24 12:12 | NUR ---
PER DR. LIM, IMAGES (CT) PUSHED TO [facility] VIA OUR IMAGING DEPARTMENT.
--- NOTE | 2021-05-24 12:54 | NUR ---
THIS RN TO ROOM TO CHECK ON PT. PT RESTING ON RIGHT SIDE, PT DECLINES REPOSITIONING STATING "I'M GOOD, EVEN MY BUTT IS GOOD." PT RATES PAIN AT 3/10 AND DENIES NEED FOR PAIN MEDICATION. LUNCH DELIVERED, PT DECLINES LUNCH. PT ALERT AND ORIENTED AND WATCHING TV. NO ADDITIONAL REQUESTS OR COMPLAINTS. CALL LIGHT WITHIN REACH. BED RAILS UP.
--- NOTE | 2021-05-24 13:53 | NUR ---
PATIENT DID NOT EAT BREAKFAST, DOES NOT WANT TO TRY HER LUNCH. SHE HAD A PEANUT BUTTER MILKSHAKE, FINISHED 100%. 600 ML TOTAL. BP LOW, RN AWARE. PT SITTING WATCHING TV. ALERT AND ORIENTED. HAS NO REQUESTS OR COMPLAINTS AT THIS TIME. CALL LIGHT WITHIN REACH.
--- NOTE | 2021-05-24 13:54 | NUR ---
AFTERNOON ASSESSMENT AND MEDICATION DUE. THIS RN TO ROOM. PT RESTING IN BED WITH EYES CLOSED. PT AWAKENS TO VOICE AND LIGHT TOUCH. PT REPORTS 5/10 PAIN AND REQUESTS PAIN MEDICATION. IV WNL, NO S/S OF PHLEBITIS NOTED. PT ORIENTED TO ALL BUT DATE/TIME PT DROWSY AND HAS TROUBLE KEEPING EYES OPEN EVEN DURING DRESSING CHANGE. LUNG SOUNDS DEMINISHED BUT CLEAR. HEART TONES REGULAR AT THIS TIME. BLOOD PRESSURE REASSESSED, REMAINS LOW. PT DENIES DIZZINESS, REPEAT SAME STORIES AND QUESTIONS FROM THIS MORNING. DRESSINGS REMOVED, WOUNDS CLEANED WITH NS. WOUNDS APPEAR FOLLOWS. COCCYX WOUND = 1.2CM DEEP ADN 2.5CM CIRCUMFRENTIAL. 2CM TUNNLE NOTED AT 2 O'CLOCK WITH UNDERMINING AND WOUND EDGE CURLING OF 0.7 AROUND MARGINS. BLANCHED TISSUE NOTED FROM 5 O'CLOCK TO 9 O'CLOCK. WOUND BED PINK WITH SLOUGH TISSUE NOTED. REDNESS AROUNG MARGINS OF WOUND. PURPLED TISSUE NOTED THROUGHOUT LOWER BACK. MODERATE AMOUNTS OF YELLOW DRAINAGE NOTED FROM WOUND ISCHIAL HIP WOUND = 3.8CM BY 2.2CM WOUND BASE IS BLANCHED AND SHOWS WHITE SLOUGH TISSUE. EDGES REDDENED. LEFT LOWER LEG WOUND = 3CM X 5CM. WITH 1 CM OF REDNESS NOTED AROUND EGES OF WOUND. SMALL AMOUNT OF RED DRAINAGE NOTED FROM WOUND. NEW ALLEVYNS APPLIED TO ALL WOUNDS. PT REPOSITIONED TO LEFT SIDE, PT REPORTS SHE IS MOST COMFORTABLE IN THIS POSITION. NO ADDITIONAL REQUESTS OR COMPLAINTS. CALL LIGHT WITHIN REACH. BED RAILS UP. PILLOWS USED FOR SUPPORT.
--- NOTE | 2021-05-24 14:31 | NUR ---
DR. HUGGINS CALLED AND UPDATED ON PTS CONDITION. NO NEW ORDERS GIVEN. DR. LIM STATES TO GIVE 0.3 MG DILAUDID AT THIS TIME FOR PAIN, AWARE OF BLOOD PRESSURE. PT DENIES ADDITIONAL REQUESTS OR COMPLAINTS. CALL LIGHT WITHIN REACH. BED RAILS UP.
--- NOTE | 2021-05-24 14:40 | NUR ---
Called and spoke with pts sister, Perla. Perla had asked me a few weeks ago how to get Jeni into a SNF. We had discussed it would have to be her choice and sister felt at that time pt would not leave [facility]. She gave me an update, pt saw Dr. Lindo a few days ago and was told she needed to go to a SNF, but as far as she knows this process was never started. I attempted to call Mark at [facility] and she and Ace [facility] are out today. I called [facility] and spoke with Chrystal Nelson. She was able to give me Jeni's cm and let me know she had [employer] medicaid. I called Daniel and updated pt needs to go to a SNF and he was not aware of her wounds. He also states she is has intermediate frame tender medicaid for placement to a SNF. I then faxed her chart to [facility] in [place], [facility] in [place], and [facility] in [facility] with a note, pt has [employer] and [employer] medicaid.
--- NOTE | 2021-05-24 15:19 | NUR ---
THIS RN TO ROOM TO CHECK ON PT. PT AWAKE AND ALERT. PT WATCHING TV AND STATES THAT HER PAIN IS MUCH BETTER, NOW 03/28. PT CONTINUES RESTING ON LEFT SIDE. MINOR HEAD SHAKING SEEN FROM TIME TO TIME. PT ASSISTED WITH CALLING HER FATHER. NO ADDITIONAL REQUESTS OR COMPLAINTS. CALL LIGHT WITHIN REACH. BED RAILS UP.
--- NOTE | 2021-05-24 16:04 | NUR ---
Spoke with Jeni. She is aware of wounds and need for placement to SNF for wound care. Per Dr. Avery she will need a SNF. She states she had already been told this by her PCP, Dr. Lindo and thinks someone is working on her going to [facility]. I call [facility] and they have not recieved a referral for this pt. Discussed with Jeni I will work on placement, but it will more than like be out of town as [facility] does not have any beds open. She stated understanding. I asked if it is ok to give infor to her sister, Perla, who works in admitting and she states yes.
--- NOTE | 2021-05-24 16:30 | NUR ---
THIS RN TO ROOM TO CHECK ON PT. PT MILDY DIAPHRETIC AND REPORTS SHE "NEED A CIGARRETTE." SUSAN, REPORTS OK TO INCREASE PTS NICOTENE PATCH PER DR LIM. ORDERS ENTERED. AWAITING VARIFICATION BY PHARMACY. PT REPOSITIONED TO BACK WEIGHT OFF LOADED FROM RIGHT HIP AND COCCYX WITH HEAD OF BED ELEVATED. PT PEANUT BUTTER MILKSHAKE PROVIDED. PT DRINKING MILSHAKE, NO ADDITIONAL NEEDS AT THIS TIME. BED RAILS UP. CALL LIGHT WITHIN REACH.
--- NOTE | 2021-05-24 17:30 | NUR ---
SUHAS PATCH VARIFIED BY RENETTA. LORRIE TO PTS ROOM. PT REPORTS 2/10 PAIN AND STATES "I'M DOING PRETTY GOOD RIGHT NOW." PT FINISHED WITH PEANUT BUTTER MILKSHAKE. HEAD BOBBING NOTED. PT HAS REPOSITIONED SELF TO LEFT SIDE. PT REPORTS "I'M MORE COMFORTABLE THIS WAY." PT DECLINES REPOSITIONING TO ANOTHER POSITION. PT DENIES NAUSEA. NO ADDITIONAL REQUESTS OR COMPLAINTS. CALL LIGHT WITHIN REACH. BED RAILS UP.
--- NOTE | 2021-05-24 17:53 | NUR ---
PATIENT REPOSITIONED HERSELF IN BED, PUT A PILLOW BEHIND BACK FOR SUPPORT. VITALS AND I&O'S CHARTED. CALL LIGHT IN REACH. NO FURTHER NEEDS AT THIS TIME.
--- NOTE | 2021-05-24 18:03 | NUR ---
PT HERE FOR PRESSURE ULCER MANGEMENT AND EVALUATION. PT REMAINS BED BOUND THIS SHIFT. UNABLE TO STAND OR GET OUT OF BED. PT HAS MINIMAL APPITITE FOR ANYTHING BUT PEANUTBUTTER MILKSHAKES. BLOOD PRESSURE VERY LOW THIS SHIFT, MD AWARE. PRN PAIN MEDICATIONS GIVEN FOR COCCYX PAIN RELATED TO MULTIPLE PRESSURE ULCERS. COMPLEX WOUND ASSESSMENT AND NOTE COMPLETED WITH AFTERNOON ASSESSMENT. WOUNDS UNCHANGED. NEW ALLEVYNS APPLIED. RAMON CATHETER REMAINS IN PLACE, QUANTITY SUFFICIENT. PT WEANED TO ROOM AIR. IV ABX STARTED FOR URINE INFECTION. PT ORIENTED X3 (NOT ORIENTED TO DATE). PT DOES NOT USE CALL LIGHT OR MAKE NEEDS KNOWN.
--- NOTE | 2021-05-24 18:46 | NUR ---
DR. POWERS CALLED AND STATES HE WOULD LIKE AN EKG. RT CALLED AND STATES THEY ARE ON THEIR WAY TO PERFORM EKG.
--- NOTE | 2021-05-24 18:55 | NUR ---
THIS RN TO ROOM TO CHECK ON PT. PT REPOSITIONED TO RIGHT SIDE. PT REPORTS 9/10 PAIN IN SACRAL AREA. SEE MAR FOR MEDICATION GIVEN. PTS HAIR COMBED AND BRADED. PT COUGHING ON HER OWN SPUTUM. HEAD OF BED ELEVATED TO 40 DEGREES. BLOOD PRESSURE REMAINS LOW. PT DIOSIENTED TO PLACE STATING "CAN I GO BACK TO MY ROOM YET." "I NEED TO GET BACK TO BED." DR. LIM CALLED AND UPDATED. NO NEW ORDERS AT THIS TIME. DR. LIM STATES HE WILL CONSIDER HOSPITALIST CONSULTATION. BED RAILS UP. CALL LIGHT WITHIN REACH.
--- NOTE | 2021-05-24 19:09 | NUR ---
DR. POWERS TO BEDSIDE. DR. POWERS UPDATED ON PT STATUS, ASSESMENT AND VITAL SIGNS. VITALS REPEATED, MANNUAL BLOOD PRESSURE TAKEN BY DR. POWERS. VERBAL ORDERS GIVEN TO START 500ML LR BOLUS OVER AN HOUR AND CALL WITH REPEAT BLOOD PRESSURE. ORDERS FOR EKG ALSO GIVEN. RT ALIREZA TO BEDSIDE FOR EKG. TAKEN. IV FLUIDS GIVEN. UPDATE GIVEN TO CHARGE NURSE. REPORT GIVEN TO MISTY SPRINGER WHO IS ASSUMING CARE OF PT. PT WATCHING TV. BED RAILS UP. CALL LIGHT WITHIN REACH. PT REMAINS ON RIGHT SIDE.
--- NOTE | 2021-05-24 19:50 | NUR ---
REPORT RECEIVED FROM DAY SHIFT RN. PT LYING IN BED ALERT AND ORIENTED. ASSISTED TO REPOSITION FOR COMFORT. IV BOLUS INFUSING ORDERED. WHITE BOARD UPDATED. CALL LIGHT IN REACH.
--- NOTE | 2021-05-24 20:30 | NUR ---
IN TO ASSIST PT TO REPOSITION IN BED. BLOOD PRESSURE TAKEN AND RECORDED. I&O COMPLETE. IV BOLUS FINISHED. MAINTENANCE FLUIDS INFUSING PER ORDER.
--- NOTE | 2021-05-24 21:30 | NUR ---
EVENING ASSESSMENT COMPLETE. SCHEDULED MEDS ADMINISTERED PER EMAR. PRN FOR 10/10 SACRAL AREA PAIN ADMINISTERED PER EMAR. VS AND I&O COMPLETE. DR. POWERS UPDATED ON PT BLOOD PRESSURE. NO NEW ORDERS RECEIVED. 2PA TO REPOSITION IN BED. ALLEVYN TO WOUND ON SACRUM REPLACED DUE TO DRAINAGE. RAMON PATENT WITH YELLOW URINE. RAMON CARE COMPLETE. PT SABRINA WELL. NO FURTHER NEEDS AT THIS TIME. CALL LIGHT IN REACH. BED ALARM FOR SAFETY.
--- NOTE | 2021-05-24 21:36 | NUR ---
ASSISTED RN GIAN REPOSITIONED PATIENT. RAMON CARE DONE.
--- NOTE | 2021-05-25 01:45 | NUR ---
IN ROOM TO ASSIST PT TO REPOSITION IN BED. PT PAINFUL AND TEARFUL. PRN FOR PAIN ADMIN PER EMAR. PILLOWS PLACED FOR COMFORT. SpO2 94% ON RA. HR 80'S. PT DENIES FURTHER NEEDS. CALL LIGHT IN REACH.
--- NOTE | 2021-05-25 05:21 | NUR ---
IN TO REPOSITION PT WITH 2PA. VICVJOYCE CHANGED ON SACRAL AREA. PT STATES "MY ASS IS BURNING." PRN FOR PAIN ADMINISTERED PER EMAR. VS AND I&O COMPLETE. BP IMPROVED. PT DENIES FURTHER NEEDS. CALL LIGHT IN REACH.
--- NOTE | 2021-05-25 07:39 | NUR ---
REPORT RECEIVED FROM MISTY SPRINGER. PT RESTING IN BED ON LEFT SIDE, SUPPORTED WITH PILLOWS, WITH EYES CLOSED. RESPIRATIONS EVEN AND UNLABORED. FLACC SCORE OF 0/10 AT THIS TIME. PT ALLOWED TO REST. BED RAILS UP. CALL LIGHT WITHIN REACH.
--- NOTE | 2021-05-25 08:20 | NUR ---
MORNING MEDICATIONS DUE. THIS RN TO ROOM. PT RESTING ON LEFT SIDE WITH EYES CLOSED. PT AWAKENS TO VOICE AND LIGHT TOUCH. PT ALERT AND ORIENTED TO PLACE, EVENTS, SELF. REMAINS DISORIENTED TO DATE/TIME/MONTH. PT IS ABLE TO STATE YEAR WITH EFFORT. PT REPORTS 5/10 PAIN IN SACRAL AREA. SEE MAR FOR MEDICATION GIVEN. PT DECLIENS REPOSITIONING AT THIS TIME STATING SHE WANTS TO STAY COMFROTABLE ON HER LEFT SIDE. MEDICATIONS GIVEN. PT SWALLOWS PILLS WITH SIPS OF WATER. NO ADDITIONAL NEEDS AT THIS TIME. BED RAILS UP. CALL LIGHT WITHIN REACH. PT DRIFTS QUICKLY BACK TO SLEEP.
--- NOTE | 2021-05-25 09:09 | NUR ---
MORNING ASSESSMENT AND MEDICATION DUE. PT CONTINUES RESTING ON LEFT SIDE WITH EYES CLOSED. PT AWAKENS TO VOICE AND MOVEMENT IN THE ROOM. PEANUT BUTTER MILKSHAKE OFFERED, PT DECLINES AT THIS TIME. MEDICATIONS GIVEN (SEE MAR). PT REPORTS 8/10 PAIN IN SACRAL AREA. NOTED THAT NURSING NOTES STATE PT WAS GIVEN PAIN MEDICATION AT ~0500 AND PIXIS STATES OXYCODONE HAS BEEN PULLED AT THAT TIME. THEREFORE IBUPROFEN GIVEN AT THIS TIME. IV ASSESSED, WNL. NO S/S OF PHLEBITIS NOTED. PT OREINTED TO ALL BUT DATE/TIME/YEAR. PT RESPONDS TO QUESTIONS APPROPRIATLY. LUNGS SOUNDS CLEAR IN UPPER LOBES AND DEMINISHED IN LOWER LOBES. HEART TONES REMAIN REGULAR. WOUNDS REMAIN, MEASUREMENT TAKEN, WOUND TO COCCYX HAS INCREASED BLANCHED TISSUE AND MACERATION NOW FROM 6 OCLOCK TO 12 O'CLOCK. COCCY WOUND TUNNEL NOW 6CM WELL. SEE COMPLEX WOUND ASSESSMENT FOR ADDITONAL WOUND INFORMATION. NEW ALLEVYN'S APPLIED TO COCCYX AND ISCHIAL WOUND SITES. ALLEVYN TO RIGTH LOWER LATERAL LEG REMAINS C/D/I AND LEFT IN PLACE AT THIS TIME. PT DECLINES REPOSITIONING STATING SHE WANTS TO REMAIN ON LEFT SIDE. PILLOWS IN PLACE, PT DENIES ADDITIONAL REQUESTS OR COMPLAINTS AND FALLS QUICKLY BACK TO SLEEP. CALL LIGHT WITHIN REACH. BED RAILS UP.
--- NOTE | 2021-05-25 09:37 | NUR ---
DR. LIM TO BEDSIDE FOR ROUNDS. PLAN OF CARE DISCUSSED WITH PT. PAIN CONTROL DISCUSSED WITH DR LIM WHO STATES HE WILL FOLLOW UP WITH DR POWERS REGARDING PLAN OF CARE AND PLAN FOR PAIN CONTROL. RAMON CATHETER EMPTIED OF 350ML CLOUDY YELLOW URINE WITH SEDIMENT. PT VERBALIZES UNDERSTANDING OF PLAN OF CARE. NO ADDITIONAL REQUESTS OR COMPLAINTS. CALL LIGHT WITHIN REACH. AWAITING NEW ORDERS.
--- NOTE | 2021-05-25 10:09 | NUR ---
DR LIM TO BEDSIDE FOR WOUND DRESSING CHANGE. KERLIX SOAKED WITH DAKINS PACKED TO COCCYX WOUND. NEW ALLEVYN APPLIED OVER BOTH COCCYX AND ISCHIAL WOUNDS. PT REPORTS 10/10 PAIN IN SACRIAL AREA WITH WOUND CARE. NEW VERBAL ORDER GIVEN BY DR LIM FOR PAIN MEDICATION CONTROL AND CASE MANAGEMENT AND WOUND CARE NURSE CONSULTATIONS. ORDERS ENTERED AND VARIFIED BY DR. LIM AT BEDSIDE. ADDITIONAL PAIN MEDICATION GIVEN. DR. LIM STATES OK TO GIVE PT 10MG OXYCODONE AT THIS TIME EVEN THOUGH PT MAY HAVE RECEIVED 2.5MG AT ~0500. SEE MAR FOR MEDICATIONS GIVEN. NO ADDITONAL NEEDS AT THIS TIME. BED RAILS UP. CALL LIGHT WITHIN REACH.
--- NOTE | 2021-05-25 10:40 | NUR ---
Received call from Aixa at [facility] and she will accept this pt. Orders printed and given to Dr. Avery. Possibility they can take this pt today.
--- NOTE | 2021-05-25 10:42 | NUR ---
THIS RN TO ROOM TO CHECK ON PT. PT REPORTS PAIN MEDICAITON IS "NOT HELPING" PT ENCOURAGED TO GIVE THE MEDICAITON A BIT MORE TIME TO TAKE EFFECT. PT REPOSITIONED TO RIGHT SIDE, SUPPORTED WITH PILLOWS. NO ADDITIONAL NEEDS AT THIS TIME. BED RAILS UP. CALL LIGHT WITHIN REACH.
--- NOTE | 2021-05-25 11:02 | NUR ---
PT CALLING OUT TO NURSES, DOES NOT USE CALL LIGHT. THIS RN AND FELICIANO RN TO ROOM. PT RPEORTS "I JUST NEED THIS PAIN IN MY BUTT TO GO AWAY." NO ADDITIONAL PAIN MEDICATION AVALIABLE. MESSAGE SENT TO DR. POWERS, AWAITING RESPONSE. PT CONTINUES TO REPORTS 10/10 PAIN IN SACRAL AREA. WOUND CONSULT NURSE EXPECTED LATER TODAY. PT ASSISTED WITH REPOSITIONING IN BED, PILLOWS USED FOR SUPPORT. PT REQUSTS "I WANT THE SHOT PAIN MEDICATION IT MAKES THE PAIN GO AWAY." NO ADDITONAL NEEDS AT THIS TIME. BED RAILS UP. CALL LIGHT WITHIN REACH.
--- NOTE | 2021-05-25 11:16 | NUR ---
ROSENDA, REPORTING PROCESS CONSULTANT TO BEDSIDE FOR WOUND EVALUATION. DRESSINGS REMOVED. MEASUREMENTS TAKEN BY ROSENDA (SEE WOUND CARE ASSESSMENT). ROSENDA REPORTS THE BASE OF THE COCCYX WOUND "LOOKS BETTER THAN LAST WEEK WHEN I SAW HER." PT CONTINUES TO REPORT 10/10 PAIN IN COCCYX. PT CONTINUES TO ASK "I WANT THE PAIN SHOTS." PAIN MANAGMENT EDUCATION DONE WITH PT. CASE MANAGEMENT TO BEDSIDE TO REVIEW PLAN OF CARE AND DISCUSS WOUND CARE ORDERS WITH ROSENDA RN. PT RESTING ON RIGHT SIDE DURING DRESSING CHANGE. NO ADDITIONAL NEEDS AT THIS TIME. CALL LIGHT WITHIN REACH. BED RAILS UP.
--- NOTE | 2021-05-25 11:44 | NUR ---
ROSENDA, TORPEDO WORKER, FINISHED WITH NEW DRESSINGS (SEE WOUND CARE NOTE BY ROSENDA). PT CALLS THIS RN TO ROOM STATING "I WANT THAT PAIN SHOT. I'LL SIGN WHATEVER I NEED TO GET IT." ADDITIONAL EDUCATION DONE WITH PT REGARING PAIN CONTROL AND VITAL SIGNS. PT ENCOUARGED TO TALK WITH MD DURING ROUNDS. REPOSITIONING OFFERED, PT DECLINES. PT DROWSY AND RESTING WITH EYES CLOSED. BLOOD PRESSURE LOW ONCE AGAIN. NO ADDITIONAL REQUESTS OR COMPLAINTS. BED RAILS UP. CALL LIGHT WITHIN REACH.
--- NOTE | 2021-05-25 12:10 | NUR ---
Notified by [facility], they will accept pt tomorrow. They are getting an airmattress for this pt and will let CM know tomorrow when they will pick pt up. Wound nurse, Leni, here and assessed wound earlier and wrote orders for wound management Orders, rx, pasrr, med list, wound care orders and Polst faxed to [facility]. Orders placed in envelope for at dictation desk for Dr. Avery to review in the AM if he wants to make changes.
--- NOTE | 2021-05-25 13:38 | NUR ---
AFTERNOON ASSESSMENT AND MEDICATION DUE. PT AWAKE AND ALERT. PT ORIENTED TO ALL BUT YEAR. PT REPORTS 8/10 PAIN IN SACRAL AREA. BLOOD PRESSURE NOTED TO BE VERY LOW. DR. POWERS UPTDATED AND NEW ORDERS PLACED. ORDERS GIVEN TO HOLD PAIN MEDICATION, GIVE MECLAZINE, REASSESS BLOOD PRESSURE IN 1 HOUR AND REEVALUATE PAIN MEDIATION ADMINISTRATION AT THAT TIME GIVEN BLOOD PRESSURE RESULT. PT UPDATED ON PLAN OF CARE AND VERBALIZES UNDERSTANDING. LUNG SOUNDS REMAIN CLEAR. DEMINISHED IN BASES. COUGH NOTED FROM TIME TO TIME. PT DRINKING PEANUT BUTTER MILKSHAKE AND APPEARS TO BE SWALLOWING WITHOUT DIFFICULTIES. SMALL AMOUNT OF CLEAR DRAINAGE SHADOWING NOTED ON COCCYX ALLEVYN. ALLEVYNS REMAIN INTACT, LEFT IN PLACE AT THIS TIME. MEDICATION GIVEN. PT SUGGESTED TO REPOSITION TO LEFT SIDE, PT DECLINES STATING "NO, I'M STAYING WHERE I AM." NO ADDITIONAL REQUESTS OR COMPLAINTS. CALL LIGHT WITHIN REACH. BED RAILS UP.
--- NOTE | 2021-05-25 14:41 | NUR ---
PATIENT AWAKE IN BED, VITALS AND I&OS CHARTED. PATIENT PROUD OF HERSELF FOR EATING A PEANUT BUTTER SANDWHICH AND A HOLE MILK SHAKE. CALL LIGH IN EASY REACH
--- NOTE | 2021-05-25 14:52 | NUR ---
THIS RN TO BEDSIDE TO CHECK ON PT. PT REPORTS / "PAIN IN MY ASS." VITAL SIGNS REASSESSED, BLOOD PRESSURE REMAINS LOW. IBUPROFEN GIVEN FOR PAIN CONTROL. PT AGREES TO REPOSITIONING, REPOSITIONED TO LEFT SIDE, SUPPORTED WITH PILLOWS. PTS DAUGHTER, MAYI ARRIVED TO BEDSIDE, UPDATED ON PT STATUS AND PLAN OF CARE. MAYI STATES HER QUESTIONS HAVE BEEN ANSWERED. PT VISITING WITH DAUGHTER. NO ADDITIONAL REQUESTS OR COMPLAINTS. PEANUT BUTTER MILKSHAKE FROM [employer] DELIVERED TO PT FROM DAUGHTER. PT SIPPING ON MILKSHAKE.
--- NOTE | 2021-05-25 15:55 | NUR ---
THIS RN TO ROOM TO CHECK ON PT. PT CONTINUES TO REPORT 8/10 PAIN IN SACRAL AREA AND REQUESTS ADDTIONAL PAIN MEDICATION. BLOOD PRESSURE REMAINS LOW. DR POWERS CONSULTED AND STATES TO REFER TO WHATEVER DR LIM WOULD LIKE TO DO REGARDING PAIN CONTROL WITH CURRENT BLOOD PRESSURE VALUES. DR. LIM CALLED AND UPDATED ON PT STATUS. DR LIM STATES TO DC IBUPROFEN AND START IV TORADOL AND TO GIVE 5MG OXYCODONE AT THIS TIME, DR AWARE OF BLOOD PRESSURE. ORDERS ENTERED AND READ BACK PERFORMED. MEDICATION GIVEN (SEE MAR). PT REMAINS ON LEFT SIDE, BOOSTED IN BED WITH PILLOWS ADJUSTED. PT DECLINES AN ALTERNAT POSITION STATING SHE IS "COMFORTABLE LIKE THIS." NO ADDITIONAL REQUESTS OR COMPLAINTS. CALL LIGHT WITHIN REACH. BED RAILS UP.
--- NOTE | 2021-05-25 16:32 | NUR ---
PT HERE FOR PRESSURE ULCER MANAGMEENT. PT REMAINS IN BED THIS SHIFT, ENCORUAGED TO DO Q 2 HOUR TURNS BUT NOT ALWAYS WILLING. PT REPOSITIONED FREQUENTLY SHE AGREES TO BE TURNED. PT HAS VERY MINIMAL APPITITE, WAS ALBE TO EAT A PEANUT BUTTER SANDWICH THIS SHIFT BUT OTHERWISE HAS ONLY PEANUT BUTTER MILKSHAKES. BLOOD PRESSURE REMAINS LOW WITH PAIN MEDICATION ADMINISTRATIONS, DR LIM AND DR POWERS AWARE. PRN PAIN MEDICATIONS ADJUSTED AND GIVEN PT REMAINS AT 8-10/10 PAIN THROUGHOUT SHIFT. MULTIPLE DRESSING CHANGES THIS SHIFT. WOUND CONSULT RN TO BEDSIDE FOR EVALUATION AND DRESSING CHANGE, DRESSINGS REMAIN INTACT SINCE THAT TIME. NEW MEASUREMENTS AND WOUND EVALUATION DONE, SEE COMPLEX WOUND ASSESSMENT. PT REMAINS ON ROOM AIR THIS SHIFT. PT ORINETD TO ALL BUT YEAR/DATE. FAMILY TO BEDSIDE THIS SHIFT. RAMON CATHETER REMAINS IN PLACE, QUANTITY SUFFICIENT. PT USES CALL LIGHT INCONSISTANTLY.
--- NOTE | 2021-05-25 16:50 | NUR ---
DR LIM CALLED AND STATES HE HAS SPOKEN WITH PTS FAMILY. DR. LIM STATES THAT FAMILY AND PT UNDERSTAND HER CONDITION AND WOULD LIKE TO FOCUS ON PAIN CONTROL. DR. LIM GIVES ORDERS NOT TO NOTIFY HIM FOR LOW BLOOD PRESSURE AND TO GIVE PAIN MEDICATIONS NEEDED. PER CURRENT ORDERS. ORDER ENTERED. CHARGE NURSE UPDATED.
--- NOTE | 2021-05-25 17:26 | EKG ---
[facility] [address] [place] [address] Signed Normal sinus rhythm Biatrial enlargement ST \T\ T wave abnormality, consider anterolateral ischemia Abnormal ECG When compared with ECG of 23-MAR-2021 15:07, Nonspecific T wave abnormality now evident in Inferior leads T wave inversion now evident in Lateral leads QT has shortened Confirmed by ANNIE POWERS MD ([id number]) on 05/25/2021 5:26:19 PM Electronically Signed By: ANNIE POWERS MD 05/25/21 1726 PATIENT NAME: ROE DURAN Electrocardiogram DATE OF : 62 PHYSICIAN: ANNIE POWERS MD REPORT #: [id number] REPORT IS CONFIDENTIAL AND NOT TO BE RELEASED WITHOUT AUTHORIZATION
--- NOTE | 2021-05-25 17:29 | NUR ---
PT CALL LIGHT ON. PT REPORTS HER IV IS LEAKING. IV NOTABLY INFILTURATED. LARGE POCKET OF FLUID NOTED. IV DC'D PER PROTOCOL. GAUZE AND COBAN APPLIED TO SITE AND COBAN OVER SWOLLEN AREA. ARM ELEVATED ON PILLOW. ONLY IV FLUIDS INFUSING AT TIME OF INFILTRATION. WARM BLANKET WRAPED OVER INFILRATED SITE. NEW IV STARTED TO LEFT FORARM PER PROTOCOL. BRISK BLOOD RETURN NOTED WITH IV START. IV FLUIDS INFUSING. PT REPORTS ADDITONAL PAIN MEDICATION, RATES PAIN NOW AT 8/10. VITAL SIGNS TAKEN. BLOOD PRESSURE NOTABLLY LOWER. URINE APPEARS MORE CONCENTRATED. DR POWERS CALLED AND ORDERS GIVEN TO GIVE ADDITIONAL 5MG OF OXY PER PT REQUEST AT THIS TIME WITH ADDITIONAL MIDODRINE (SEE MAR FOR MEDICATION GIVEN). NEW ORDERS GIVEN TO CONTACT DR POWERS IF URINE OUTPUT IS LESS THAN 120ML IN 4 HOURS OR LEVEL OF CONCIOUSNESS CHANGES AND OTHERWISE TO CONTROL PAIN WITHIN ORDERS DESPITE BLOOD PRESSURE VALUES. ORDERS ENTERED. MEDICATION GIVEN (SEE MAR). NO ADDITONAL REQUESTS OR COMPLAINTS. CALL LIGHT WITHIN REACH. BED RAILS UP.
--- NOTE | 2021-05-25 18:31 | NUR ---
THIS RN TO ROOM TO CHECK ON PT. PT RESTING ON RIGHT SIDE, SUPPORTED WITH PILLOWS. PT LAUGHING AT TELEVISION SHOW. PT REPORTS 8/10 PAIN IN SACRAL AREA. EDUATION DONE WITH PT REGARDING TIME FOR NEXT DOSE OF PAIN MEDICATON. PT VERBALIZES UNDERSTANDING. PT DECLINES DINNER BU STATES "JUST LEAVE IT THERE, MAYBE I'LL EAT LATER." MILKSHAKE PLACED IN FREEZER FOR PT. PT DENIES ADDITIONAL REQUESTS OR COMPLAINTS. CALL LIGHT WITHIN REACH. BED RAILS UP.
--- NOTE | 2021-05-25 19:00 | NUR ---
SHIFT RPEORT RECEIVED FROM DAYSHIFT RN KANDACE. pt AWAKE AND RESTING IN BED, RESTING OFF AND ON. RR EVEN AND UNLABORED, NO DISTRESS NOTED. pt ALLOWED TO REST AT THIS TIME, CALL LIGHT IN REACH AND pt IN VIEW OF RN STATION.
--- NOTE | 2021-05-25 20:00 | NUR ---
CALL LIGHT ON, PT REQUESTING PAIN MEDS, IN TO GET VITALS AND TO LET PT KNOW RN WILL BE IN SOON, CATH CARE COMPLETE, RAMON EMPTIED, RN AWARE OF OUTPUT AT THIS TIME
--- NOTE | 2021-05-25 20:30 | NUR ---
ASSESSMENT COMPLETE, SCHEDULED MEDICATIONS GIVEN, SEE EMAR. pt REPORTS 10/10 PAIN, UNABLE TO GIVEN PAIN MEDICATION AT THIS TIME, NON PHARMACOLOGICAL INTERVENTIOSN ATTEMPTED, pt BOOSTED IN BED AND REPOSITIONED, NOW LAYING ON HER RIGHT SIDE. NEW ALLEVYN TO COCCYX PLACED BY RELEASE OF INFORMATION CLERKMISTY STEWART, SOME SHADOWING NOTED, YELLOW IN COLOR. pt TOOK MEDICATIONS FINE, ASPIRATION PRECAUTIONS REMAINS IN PLACE. BED ALARM ON. RAMON CATHETER PATENT, VOIDING QS AT THIS TIME. REMAINS ALLEVYNS TO BUTTOCKS AND LLE REMAIN C/D/I. pt A/O TO ALL BUT DATE AND TIME. NO FURTHER NEEDS, CALL LIGHT IN REACH.
--- NOTE | 2021-05-25 22:00 | NUR ---
pt ABLE TO HAVE PAIN MEDICATION PER EMAR, AT DOOR TO ASSESS pt. pt CURRENTLY RESTING IN BED WITH EYES CLOSED. RR EVEN AND UNLABORED, NO DISTRESS OR OUTWARD SIGNS OF PAIN NOTED, DISCUSSED WITH PEDIATRICIANMISTY STEWART. WILL ALLOW pt TO CONTINUE TO REST AND CONTINUE TO MONITOR pt. CALL LIGHT IN REACH AND BED ALARM ON FOR SAFETY. pt IN VIEW OF RN STATION.
--- NOTE | 2021-05-26 00:27 | NUR ---
CALL LIGHT ANSWERED, pt REPORTS 10/10 PAIN, PRN PAIN MEDICATION GIVEN (SEE EMAR). pt AWAKE AND RESTING IN BED, WATCHING TV. pt ABLE TO CHANGE POSITIONS AND TURN SELF IN BED, pt INITIALY DECLINED REPOSITION CHANGE. pt EDUCATED ON NEED TO CHANGE POSITIONS IN BED TO PREVENT FURTHER SKIN AND WOUND BREAKDOWN, pt BOOSTED IN BED AND NOW RESTING ON LEFT SIDE. pt REFUSES HEEL PROTECTERS. IV SITE REMAINS WNL. CALL LIGHT IN REACH. BED ALARM ON.
--- NOTE | 2021-05-26 01:23 | NUR ---
call light answered, pt reports nausea. prn nausea medication given, see emar. iv site remains wnl. fluids resumed and infusing as directed, call light in reach.
--- NOTE | 2021-05-26 02:20 | NUR ---
IN TO CHECK URINE OUTPUT, PT IS ABLE TO TURN SELF OVER TO HER RIGHT SIDE, WARM BLANKET PROVIDED, ICE TOPPED OF IN WATER, NO FURTHER NEEDS AT THIS TIME
--- NOTE | 2021-05-26 03:33 | NUR ---
pt RESTING IN BED WITH EYES CLOSED, RESTING ON HER RIGHT SIDE. EYES CLOSED, RR EVEN AND UNLABORED, NO DISTRESS NOTED. RR 22-24. WILL CONTINUE TO MONITOR. CALL LIGHT IN REACH.
--- NOTE | 2021-05-26 05:30 | NUR ---
ASSESSMENT COMPLETE, NO ACUTE CHANGES. pt AWAKE AND RESTING IN BED. REPORTS PAIN BUT DOES NOT RATE AT THIS TIME, STATING, "I JUST WOKE ME UP". PRN PAIN MEDICATION GIVEN, SEE EMAR. LAB IN ROOM FOR AM BLOOD DRAW. SOME SHDOWING NOTED TO NIALL MARIE, WILL MONITOR. ALLEYVN TO BUTTOCKS AND RLE REMAINS C/D/I. pt REPSOTIONED IN BED AND BOOSTED. LAYING ON HER LEFT SIDE. NEW BAG IV FLUIDS HUNG AND INFUSING DIRECTED, IV SITE WNL. PILLOW ALSO IN BETWEEN BLE AND UNDER LEFT ARM FOR ADDITIONAL COMFORT. NO FURTHER NEEDS, CALL LIGHT IN REACH.
--- NOTE | 2021-05-26 07:06 | NUR ---
RPOERT RECEIVED FROM MISTY HOU. PT RESTING ON LEFT SIDE WITH EYES CLOSED. RESPIRATIONS EVEN AND UNALBORED, RR = 24. BED RAILS UP. HEAD OF BED ELEVATED TO 20 DEGREES. PT ALLOWED TO REST. CALL LIGHT WITHIN REACH.
--- NOTE | 2021-05-26 07:21 | NUR ---
DR POWERS MADE AWARE OF LOW UO PER NURSE NOTIFY, CALL MD IF UO IS <120MLS/4HRS. UO 100MLS/4HRS. NO NEW ORDERS RECEIVED AT THIS TIME. MIRIAM ROUSSEAU ALSO MADE AWARE.
--- NOTE | 2021-05-26 07:28 | NUR ---
DR. LIM CALLED TO CLARIFY SODIUM PHOSPHATE ORDER. DR. LIM STATES HE INTENDED THIS ORDER TO BE ONLY A ONE TIME DOSE. PHARMACY CALLED TO UPDATE ORDER. TENZIN, PHARMACIST STATES HE WILL UPDATE ORDER.
--- NOTE | 2021-05-26 08:08 | NUR ---
RT COLLECTED RAPID COVID 19 SWAB WITH NO COMPLICATIONS AT THIS TIME.
--- NOTE | 2021-05-26 08:30 | NUR ---
WIN LÓPEZ AT [facility] REGARDING TRANSPORT TIME FOR PATIENT.
--- NOTE | 2021-05-26 08:48 | NUR ---
MORNING ASSESSMENT AND MEDICATION DUE. PT RESTLESS IN BED, ATTEMPTING TO REPOSITION HERSELF. PT ASSISTED WITH REPOSITIONING TO RIGHT SIDE, SUPPORTED WITH PILLOWS. PT REPORTS 15/10 PAIN IN "MY ASS." SEE MAR FOR MEDIACTION GIVEN. 2ND IV STARTED FOR ELECTORLYTE ADMINISTRATION FLUIDS ARE NOT COMPATABLE AND HAVE LONG INFUSION TIMES. PT TOLERATED IV START WELL. IV STARTED PER PROTOCOL. BRISK BLOOD RETURN NOTED. PT ALERT AND ORIENTED TO ALL. PT FORGETFUL RESTATING THE SAME DISCUSSION TOPICS THAT HAVE BEEN REVIEWED THE PAST FEW DAYS. LUGN SOUNDS COURSE THROUGHOUT ALL LUNG ANDERSON. MOIST UPPER AIR WAY SOUNDS. MOIST COUGH NOTED. OXGYEN SATURATION 88% ON ROOM AIR. PT PLACED ON 2L O2 BY WY WITH OXYGEN SATURATIONS RISING TO 94%. PT REPORTS SHE IS UNABLE TO COUGH UP SPUTUM. HEAD OF BED ELEVATED TO 30 DEGREES. BOWEL TONES HYPOTACTIVE, PT DENIES CONSTIPATION, MIRILAX GIVEN. PT DECLINES BREAKFAST, POOR ORAL INTACK CONTINUES. DRESSINGS TO COCCYX AND ISCHIAL AREA SATURATED. DRESSINGS CHANGED PER MD ORDER. ALELVYN TO RIGHT LOWER LEG LEFT INTACT C/D/I THIS TIME. NO ADDITIONAL NEEDS AT THIS TIME. CALL LIGHT WITHIN REACH. BED RAILS UP.
--- NOTE | 2021-05-26 09:02 | NUR ---
PT NOTED TO BE TRYING TO REPOSITION SELF AGAIN. PT TEARFUL AND CRYING "I'M JUST IN SO MUCH PAIN." DR. LIM CALLED REGARDING PTS PAIN CONTROL AND ASSESSMENT. AWAITING CALL BACK. PT RESTING NOW ON LEFT SIDE. HEAD OF BED ELEVATED TO 30 DEGREES. 2L O2 BY NC REMAINS IN PLACE. TREMORS NOTED THROUGHOUT BODY. BED RAILS UP. CALL LIGHT WITHIN REACH.
--- NOTE | 2021-05-26 09:27 | NUR ---
PER RENE AT [facility] TRANSPORT TO PROPOSAL REP PATIENT AT 1330. WILL NOTIFY STAFF IN AM MEETING.
--- NOTE | 2021-05-26 09:35 | NUR ---
PATIENT AWAKE IN BED, RAMON EMPTIED AND CHARTED. PATIENT REFUSED BEDBATH, WOULD LIKE TO "JUST BE LEFT ALONE TODAY." RN NOTIFIED AND THIS MEDICAL ACCOUNTING CLERK WILL ATTEMPT A BEDBATH AGAIN THIS AFTERNOON
--- NOTE | 2021-05-26 09:39 | NUR ---
THIS RN TO ROOM TO CHECK ON PT. PT RESTING ON LEFT SIDE SUPPORTED WITH PILLOWS. TREMORS CONTINUE. PT MOANING. PT REPORTS 10/10 PAIN AND STATES "I JUST NEED SOMETHING FOR THE PAIN." AWAITING CALL BACK FROM . OXGYEN SATURATION 95% ON 2L O2 BY NC. HEAD OF BED ELEVATED TO 30 DEGREES. PT DECLINES ADDITIONAL INTERVENTIONS INCLUDING A BATH, REPOSITIONING, OR COOL CLOTHS. NO ADDITONAL NEEDS AT THIS TIME. CALL LIGHT WITHIN REACH. BED RAILS UP.
--- NOTE | 2021-05-26 09:56 | NUR ---
DR POWERS UPDATED ON PTS PAIN CONTROL, VITAL SIGNS AND ASSESSMENT. ORDERS GIVEN FOR CHEST X-RAY. PAIN CONTROL DIFERED TO DR. LIM. ADDITIONAL CALL PLACE TO DR. LIM WHO STATES HE WILL BE TO THE FLOOR TO SEE PT SOON. NO ADDITONAL NEW ORDERS AT THIS TIME.
--- NOTE | 2021-05-26 10:24 | NUR ---
X-RAY TO BEDSIDE FOR IMAGING. PT ABLE TO MOVE AND DO XRAY POSITIONING WITHOUT TEARS. PT CONTINUES TO REPORTS 10/10 PAIN. PT NO LONGER TEARFUL, MOANING OR TRYING TO REPOSITION HERSELF. PTS GRANDDAUGHTER TO BEDSIDE, UPDATED ON PLAN OF CARE, AND VERBALIZES UNDERSTANDING. PT REPOSITIONED TO RIGHT SIDE, SUPPORTED WITH PILLOWS. PT SMILING AND LAUGHING WHILE TALKING TO DAUGHTER. NO ADDITIONAL REQUESTS OR COMPLAINTS. CALL LIGHT WITHIN REACH. BED RAILS UP.
--- NOTE | 2021-05-26 11:15 | NUR ---
DR. LIM INTO CASE MANAGEMENT OFFICE TO DISCUSS PATIENTS DISCHARGE. DR. LIM STATES HE HAD BEEN ATTEMPTING TO CONTACT THE PATIENT DAUGHTER AND FATHER REGARDING POSSIBLE MOVING THE PATIENT TO COMFORT CARE. DR. LIM STATES THAT HE RECVD A CALL FROM [place] PATIENT DAUGHTER THIS MORNING TO DISCUSS COMFORT CARE. MD ASKING IF [facility] IS ABLE TO PROVIDE COMFORT/HOSPICE CARE IF THAT IS WHAT THE PATIENT AND FAMILY WISHES TO DO. CALLED AND DISCUSSED THIS WITH RENE AT [facility], THEY ARE ABLE TO PROVIDE THIS CARE. OVER TO THE PATIENTS ROOM, MISTY JERONIMO IN THE RN STATION SPEAKING WITH DR. LIM ABOUT THE PLAN OF CARE. KANDACE JAY VOICES CONCERN WITH PATIENT LEVEL OF PAIN AND THE INABILITY FOR THE PATIENT TO TOLERATE PAIN MEDICATIONS DUE TO HYPOTENSION. KANDACE RN INTO ROOM, THIS RN AT BEDSIDE. KANDACE RN DISCUSSING THE DEFINTION/TREATMENT INVOLED IN COMFORT CARE. DR. LIM INTO THE ROOM TO CONTINUE THE DISCUSSION WITH THE PATIENT AND HER DAUGHTER. AFTER MUCH CONVERATION THE PATIENT ONLY REQUEST "NOT HAVE THIS PAIN ANYMORE." THIS RN IS UNSURE IF THE PATIENT UNDERSTANDS THE OUTCOME OF CHOOSING TO DISCHARGE WITH COMFORT CARE. DISCUSS THE ISSUE WITH DR. LIM AT THE RN STATION. MD ADVISED THAT HE IS OKAY WITH PATIENT DISCHARGING TO [facility] WITH REGULAR ORDERS AND THE FAMILY WILL MEET ON SUNDAY AT [facility] TO DICUSS ONGOING TREATMENT. SPOKE WITH PATIENT AND HER DAUGHTER AT THE BEDSIDE, THE ARE AGREEABLE TO THIS PLAN.CALLED PATIENT FATHER YULIANA, HE IS AGREEABLE TO THIS PLAN. SPOKE WITH RENE AT [facility] TO UP DATE AND CONFIRM DISCHARGE.
--- NOTE | 2021-05-26 11:30 | NUR ---
THIS RN TO ROOM WITH DR. LIM FOR ROUNDS. DR LIM UPDATED ON PTS STATUS, REQEUSTS, AND COMPLAINTS. PLAN OF CARE DISCUSSED WITH PT BY DR. LIM IN DETAIL. PTS DAUGHTER TEAMAN AT BEDSIDE FOR DISCUSSION. PT REPORTS "I JUST NEED THIS PAIN TO GET BETTER." NO ADDITONAL REQUESTS AT THIS TIME. CASE MANAGEMENT TO BEDSIDE TO TALK WITH PT AND FAMILY. CALL LIGHT WITHIN REACH. BED RAILS UP.
--- NOTE | 2021-05-26 12:12 | NUR ---
THIS RN TO ROOM TO CHECK ON PT. PT REPORTS 10/10 PAIN, SEE MAR FOR MEDICATION GIVEN. PT REPORTS "I'M NOT READY TO BUT I JUST WANT TO MAKE THE PAIN BETTER. PT REMAINS ON LEFT SIDE, DECLINES REPOSITIONING AT THIS TIME. PTS DAUGHTER HAS LEFT BEDSIDE. PT DENIES ADDITONAL REQUESTS OR COMPLAINTS. LUNCH ARRIVED. PT REPORTS SHE IS NOT HUNGRY AT THIS TIME. PT SPPING ON PEANUT BUTTER MILKSHAKE. NO ADDITIONAL REQUEST OR COMPLAINTS. CALL LIGHT WITHIN REACH. BED RAILS UP.
--- NOTE | 2021-05-26 12:36 | NUR ---
THIS RN TO ROOM TO READY PT FOR DISCHARGE WITH [facility]. PT DRESSED WITH 1 PERSON ASSIST. CATHETER CARED COMPLETED. PTS HAIR COMBED AND BRAIDED. IV'S SALINE LOCKED, LEFT IN PLACE FOR PAIN MEDICATION ADMINISTRATION PRIOR TO DISCHARGE. DISCHARGE PLAN REVIEWED WITH PT AND PT VERBALIZES UNDERSTANDING OF DISCHARGE TO [facility] AND PLAN OF CARE. PT REPORTS PAIN REMAINS AT 10/10 IN SACRAL AREA. VITAL SIGNS STABLE. AWAITING ARRIVAL OF PTS TRANSPORTATION VAN. NO ADDITIONAL REQUESTS OR COMPLAINTS. CALL LIGHT WITHIN REACH. BED RAILS UP.
--- NOTE | 2021-05-26 12:50 | NUR ---
REPORT CALLED TO MISTY BLAIR, AT [facility]. JOHNNIE VERBALIZES UNDERSTANDING OF PT CONDITION AND TRANSFER AND STATES HER QUESTIONS HAVE BEEN ANSWERED.
--- NOTE | 2021-05-26 13:44 | NUR ---
PT CALL LIGHT ON, PT REQUEST PAIN MEDICATION. HYDROMORPHONE GIVEN IN ANTICIPATION OF DISCHARGE. PT RATES PAIN IN SACRAL AREA. IV FLUSHED AND SALINE LOCKED. TRANSPORT IRIS ARRIVED TO TAKE PT TO [facility]. IV'S DC'D PER PROTOCOL. GAUZE AND COBAN APPLIED. PT TRANSFERED TO WHEECHAIR WITH TWO PERSON PIVOT HUG LIFT/ASSIST. PT SUPPORTED WITH PILLOWS, PILLOWS ALSO UNDER BOTTOM. PTS DAUGHTER PRESENT WHEN TRANSPORT [facility] ARRIVED. PT AND DAUGHTER STATE THEIR QUESTSIONS HAVE BEEN ANSWERED AND VERBALIZE UNDERSTANDING OF DISCHARGE/TRANSFER PLAN. BELONGINGS WITH PT. PT WHEELED FROM MED/SURG. NO ADDITIONAL REQUESTS OR CONCERNS. TRANFER PACKET GIVEN TO TRANSPORT [facility].
== END 2021-05-26 14:00 | DRG 539 ==
LOC: ED 10:57 → MS 15:18
PROVIDERS: ADMIT Colon & Rectal Surgery; ATTEND Colon & Rectal Surgery
DX: M46.28 Osteomyelitis of vertebra, sacral and sacrococcygeal region (principal); L89.154 Pressure ulcer of sacral region, stage 4; R64 Cachexia; Z20.822 Contact with and (suspected) exposure to COVID-19; Z66 Do not resuscitate; I95.9 Hypotension, unspecified; E86.0 Dehydration; E87.6 Hypokalemia; E83.42 Hypomagnesemia; I48.0 Paroxysmal atrial fibrillation; N31.9 Neuromuscular dysfunction of bladder, unspecified; F39 Unspecified mood [affective] disorder; J44.9 Chronic obstructive pulmonary disease, unspecified; K21.9 Gastro-esophageal reflux disease without esophagitis; G40.909 Epilepsy, unspecified, not intractable, without status epilepticus; I10 Essential (primary) hypertension; F32.A Depression, unspecified; Z96.0 Presence of urogenital implants; F17.200 Nicotine dependence, unspecified, uncomplicated; Z88.5 Allergy status to narcotic agent; Z79.01 Long term (current) use of anticoagulants; Z79.899 Other long term (current) drug therapy; Z86.73 Personal history of transient ischemic attack (TIA), and cerebral infarction without residual deficits; Z90.49 Acquired absence of other specified parts of digestive tract; Z98.890 Other specified postprocedural states; Z88.8 Allergy status to other drugs, medicaments and biological substances
CPT/HCPCS: 36415; 51702; 71045; 72193; 80048; 80053; 81001; 83735; 84100; 84134; 85025; 87088; 93005; 93010; 94760; 99285-25; 99406; A9270; C9803; J1170; J1885; J2405; J3475; J3480; J7040; J7060; J7121; U0003